=== PATIENT | female | born 1950 | race Caucasian/White ===

== ENCOUNTER → 2019-12-21 09:32 | Outpatient (BNVA) | payer OTHER, SELFPAY | PROVIDERS: Visit Provider Nurse Practitioner Family | DX: N39.0 Urinary tract infection, site not specified (principal); R10.9 Unspecified abdominal pain; M62.838 Other muscle spasm | CPT/HCPCS: 81000 ==

== ENCOUNTER 2019-12-28 16:30 | Emergency (ER) | payer MEDICARE, OTHER, SELFPAY ==
[2019-12-28 16:31] VITALS: BP 149/93; PULSE 114; RESP 28; O2SAT 87; BMI 42.8
--- NOTE | 2019-12-28 16:31 | XR_ITS ---
WS: [id number] PORTABLE CHEST HISTORY: sob COMPARISON: 2017 Examination is limited by lordotic positioning. External artifacts present over the mid thorax. No pn eumonia or pulmonary congestion. No pleural effusion or pneumothorax. Cardiac size: Mildly enlarged cardiac silhouette. Mediastinum/Aorta: Ectatic thoracic aorta. No osseous abnormality seen. XR/XR chest 1V portable [id number] IMPRESSION: 1. Mild cardiomegaly and ectatic thoracic aorta. 2. No pneumonia.
--- NOTE | 2019-12-28 16:31 | CTR_ITS ---
PROCEDURE INFORMATION: Exam: CT Abdomen And Pelvis With Contrast Exam date and time: 12/28/2019 4:33 PM Age: 69 years old Clinical indication: Chest pain; Type not specified; Prior surgery; Surgery date: 6+ months; Surgery type: Breast, gb, appy, hyst; Additional info: Abd pain TECHNIQUE: Imaging protocol: Computed tomography of the abdomen and pelvis with intravenous contrast. 3D rendering: MIP and/or 3D reconstructed images were created by the technologist. Radiation optimization: All CT scans at this facility use at least one of these dose optimization techniques: automated exposure control; mA and/or kV adjustment per patient size (includes targeted exams where dose is matched to clinical indication); or iterative reconstruction. COMPARISON: CTA Chest w Abd/Pel w* 07/01/2018 3:34 PM FINDINGS: Hollow viscus: Small hiatal hernia. Nonobstructive bowel pattern. Diverticulosis coli, primarily of the sigmoid colon, without evidence for diverticulitis. No visible adynamic or reactive ileus. Liver: Liver unremarkable. Gallbladder and bile ducts: Gallbladder not visualized presumed surgically absent. No visible intra or extrahepatic biliary ectasia. Pancreas: Pancreas unremarkable. Spleen: Spleen unremarkable. Adrenals: Adrenal glands unremarkable. Kidneys and ureters: Kidneys unremarkable. No visible hydronephrosis or perinephric fluid. Appendix: Appendix not visualized and presumed surgically absent. Intraperitoneal space: No visible intraperitoneal ascites. No evidence for panniculitis/mesenteritis or mesenteric lymphadenitis. Vasculature: The abdominal aorta demonstrates minimal infrarenal fusiform aneurysmal dilatation stable since last examination. Moderate arterial sclerotic disease. Lymph nodes: No visible lymphadenopathy. Bladder: Bladder unremarkable. Reproductive: Status post hysterectomy. Bones/joints: Antecedent thoracolumbar compression wedge deformities. Previous vertebroplasty of L4. Osteoporosis. Soft tissues: Unremarkable. Other findings: Please review CT a chest examination report same admission. CT/CT angio chest w abd pel w con IMPRESSION: No visible evidence of acute or active abdominal or pelvic pathologic process. Radiation Dose CTDIVOL = (mGy): DLP = 2100.82 (mGy-cm)
--- NOTE | 2019-12-28 16:32 | ECG_ITS ---
Measurements Intervals [place] Rate: 108 P: 53 MI: 165 QRS: 25 QRSD: 90 T: 33 QT: 324 QTc: 435 SINUS TACHYCARDIA Compared to ECG 07/01/2018 16:14:59 Sinus rhythm no longer present Electronically Signed On 12-28-2019 18:13:08 CDT by Nery Jansen M.D. [email or web address]
--- NOTE | 2019-12-28 16:38 | W.ED.ABDPA2 ---
HPI - Abdominal Pain General: Chief Complaint: Abdominal Pain Stated Complaint: chest pain, SOB, edema Time Seen by Provider: 12/28/19 16:31 Source: patient and EMS Mode of arrival: EMS Limitations: no limitations History of Present Illness: HPI narrative: 69-year-old female history of CHF and COPD states she has been having abdominal pain over the last 5 to 6 days. She states it is increased and she has had increasing distention of her abdomen. She states she has had shortness of breath as well. Patient denies any worsening or improving factors. She denies any chest pain. MD elicited complaint: abdominal pain Pertinent past history: none Onset (ago): day(s) Location: Diffuse Severity: moderate Quality: cramping Radiation: none Exacerbating factors: nothing Relieving factors: nothing Associated Symptoms: Denies chills, diarrhea, dysuria, fever(s), nausea and vomiting Review of Systems Const: Denies: fever, chills, body aches or change in appetite Eyes: Denies: blurry vision or eye discomfort ENMT: Denies: throat pain or dental pain Card: Denies: chest pain Resp: Reports: shortness of breath GI: Reports: abdominal pain; Denies: nausea, vomiting or diarrhea : Denies: painful urination Musc: Denies: neck pain or back pain Skin/Breast: Denies: rash Neuro: Denies: headache Psych: Denies: depression Awais/Lymph: Denies: easy bruising All/Imm: Denies: hives PFSH ED PFSH: Medical History 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 Poly Barajas in [place], [place] [phone] Diabetes mellitus, type II Essential hypertension Fibromyalgia H/O adenomatous polyp of colon H/O malignant neoplasm of breast Dr. Inocencia Reddy in [facility] is Oncologist. [facility] [phone] Lumbar disc disease Lupus Mixed hyperlipidemia Post-laminectomy syndrome Thoracic aortic aneurysm (TAA) Social History Smoking and tobacco status: former smoker Second hand smoke exposure: No Smoking risk assessment/counseling performed?: No Physical Exam Const: COMMON NORMALS: no apparent distress, oriented x3 and healthy appearing HENMT: COMMON NORMALS: normocephalic and head/scalp atraumatic HEAD & SCALP: normocephalic and atraumatic Eye: COMMON NORMALS: PERRL and EOMs intact bilaterally PUPIL: Yes PERRL Neck/C-Spine: COMMON NORMALS: full ROM and supple Chest: COMMONS NORMALS: inspection of chest normal and palpation of chest normal Resp: COMMON NORMALS: normal respiratory effort, no retractions, no use of accessory muscles and clear to auscultation bilaterally AUSCULTATION: clear to auscultation bilaterally Cardio: COMMON NORMALS: regular rate, regular rhythm and no murmurs RATE: regular rate RHYTHM: regular rhythm GI: COMMON NORMALS: no masses INSPECTION: Yes abdominal distension and Yes scar AUSCULTATION: Yes hypoactive bowel sounds PALPATION: Yes firm and Yes tender Extremity: COMMON NORMALS: normal to inspection and full ROM Neuro: COMMON NORMALS: oriented x3, moves all extremities and no focal motor deficits Psych: COMMON NORMALS: mental status grossly normal, thought process normal and cooperative THOUGHT PROCESS: normal thought process Skin: COMMON NORMALS: no rashes or lesions noted and no wounds GENERAL SKIN EXAM: no rashes or lesions noted Course Vital Signs: Vital signs: Vital Signs Pulse Rate 107 H 12/28/19 19:23 Respiratory Rate 20 H 12/28/19 19:23 Blood Pressure 177/110 12/28/19 19:23 Pulse Oximetry 99 12/28/19 19:23 MDM - Abdominal Pain MDM Narrative: Medical decision making narrative: Patient presents here with abdominal pain. Patient's lab work and CT abdomen here are all normal. She has no signs of bowel obstruction or acute surgical abdomen. She did have some dyspnea along with edema and was given 80 mg of Lasix in route. Patient has been urinating here. She is not requiring any oxygen here. Her BNP and CT of her chest are normal. She has no signs of acute coronary event. I feel patient is stable for discharge will prescribe her pain meds. She is to follow-up with her primary care doctor in 3 to 5 days return to the ER if worsening. Lab Data: Labs: Lab Results 12/28/19 12/28/19 12/28/19 Range/Units 15:31 15:31 15:31 WBC 6.7 (4.0-10.0) 10^3/ uL RBC 5.26 (4.1-5.3) 10^6/u L Hgb 12.9 (11.5-15.3) g/dL Hct 42.8 (37.0-47.0) % MCV 81.4 (81-99) fL MCH 24.5 L (28.0-34.0) pg MCHC 30.1 (30.0-36.0) g/dL RDW 16.0 H (12.1-15.1) % Plt Count 335 (130-400) 10^3/c mm MPV 10.8 H (7.4-10.4) fL Neut % (Auto) 56.7 % Lymph % (Auto) 32.8 % [place] % (Auto) 7.6 % Eos % (Auto) 1.8 % Baso % (Auto) 1.0 % Neut # (Auto) 3.8 (1.8-7.7) 10^3/u L Lymph # (Auto) 2.2 (0.8-4.8) 10^3/u L [place] # (Auto) 0.5 (0.2-0.9) 10^3/u L Eos # (Auto) 0.1 (0.0-0.8) 10^3/u L Baso # (Auto) 0.1 (0.0-0.1) 10^3/u L Nucleated RBC % (a uto) 0 % Nucleated RBCs # 0.0 /100WBC PT 13.20 (10.5-13.3) SECO NDS INR 0.97 (0.8-1.2) Sodium 139 (136-145) mmol/L Potassium 4.5 (3.5-5.1) mmol/L Chloride 100 (98-107) mmol/L Carbon Dioxide 24 (22-29) mmol/L Anion Gap 19.5 H (5-19) BUN 10 (8-23) mg/dL Creatinine 0.7 (0.5-0.9) mg/dL GFR Calculation 82.7 L (90-130) mL/min Glucose 114 (65-115) mg/dL Calculated Osmolal ity 285 (285-295) mOsm/k g Calcium 9.6 (8.5-10.5) mg/dL Total Bilirubin 0.2 (0.15-1.2) mg/dL AST 24 (0-32) U/L ALT 15 (0-33) U/L Alkaline Phosphata se 133 H (35-105) IU/L NT-Pro-B Natriuret Pep 242 H (0-125) pg/mL Total Protein 7.2 (6.6-8.7) g/dL Albumin 4.4 (3.5-5.2) g/dL Globulin 2.8 (1.3-4.6) g/dL Lipase 26 (13-60) U/L Urine Color (Yellow) Urine Appearance (CLEAR) Urine pH (5-7) Ur Specific Gravit y (1.005-1.030) Urine Protein (Negative) Urine Glucose (UA) (Normal) Urine Ketones (Negative) Urine Blood (Negative) Urine Nitrate (Negative) Urine Bilirubin (NEGATIVE) Prot Sulfosalicyli c Acd Urine Urobilinogen (Negative) mg/dL Ur Leukocyte Amy ase (Negative) 12/28/19 Range/Units 16:43 WBC (4.0-10.0) 10^3/ uL RBC (4.1-5.3) 10^6/u L Hgb (11.5-15.3) g/dL Hct (37.0-47.0) % MCV (81-99) fL MCH (28.0-34.0) pg MCHC (30.0-36.0) g/dL RDW (12.1-15.1) % Plt Count (130-400) 10^3/c mm MPV (7.4-10.4) fL Neut % (Auto) % Lymph % (Auto) % [place] % (Auto) % Eos % (Auto) % Baso % (Auto) % Neut # (Auto) (1.8-7.7) 10^3/u L Lymph # (Auto) (0.8-4.8) 10^3/u L [place] # (Auto) (0.2-0.9) 10^3/u L Eos # (Auto) (0.0-0.8) 10^3/u L Baso # (Auto) (0.0-0.1) 10^3/u L Nucleated RBC % (a uto) % Nucleated RBCs # /100WBC PT (10.5-13.3) SECO NDS INR (0.8-1.2) Sodium (136-145) mmol/L Potassium (3.5-5.1) mmol/L Chloride (98-107) mmol/L Carbon Dioxide (22-29) mmol/L Anion Gap (5-19) BUN (8-23) mg/dL Creatinine (0.5-0.9) mg/dL GFR Calculation (90-130) mL/min Glucose (65-115) mg/dL Calculated Osmolal ity (285-295) mOsm/k g Calcium (8.5-10.5) mg/dL Total Bilirubin (0.15-1.2) mg/dL AST (0-32) U/L ALT (0-33) U/L Alkaline Phosphata se (35-105) IU/L NT-Pro-B Natriuret Pep (0-125) pg/mL Total Protein (6.6-8.7) g/dL Albumin (3.5-5.2) g/dL Globulin (1.3-4.6) g/dL Lipase (13-60) U/L Urine Color Straw (Yellow) Urine Appearance Clear (CLEAR) Urine pH 8 H (5-7) Ur Specific Gravit y 1.005 (1.005-1.030) Urine Protein Neg (Negative) Urine Glucose (UA) Norm (Normal) Urine Ketones Negative (Negative) Urine Blood Neg (Negative) Urine Nitrate Negative (Negative) Urine Bilirubin Neg (NEGATIVE) Prot Sulfosalicyli c Acd Negative Urine Urobilinogen Norm (Negative) mg/dL Ur Leukocyte Amy ase Negative (Negative) Imaging Data ^: CT Abd/Pel: Radiologist's impression: [address] [place] [address] CT Scan Report Signed with Addenda Patient: Courtney Barrios Unit #: [id number] : [id number] Age/Sex: 69 / F ADM Date: 12/28/19 Loc: ER Room/Bed: Attending Dr: Ordering Provider/Ordering MD: Mikel Gonzalez MD Date of Service: 12/28/19 Procedure(s): CT angio chest w abd pel w con Accession Number(s): [id number] Report Number: [id number]/CT angio chest w abd pel w con Additional sagittal and coronal images of the abdomen and pelvis sent after report finalized. Those images were reviewed. No additional findings. No significant overall change since 07/01/2018. Radiation Dose CTDIVOL = (mGy): DLP = 2100.82 (mGy-cm) Addendum Dictated By: Akin Jordan Addendum Signed By: Akin Jordan Signed Date/Time: 12/28/19 182 6 Addendum Cosigned By: PROCEDURE INFORMATION: Exam: CT Abdomen And Pelvis With Contrast Exam date and time: 12/28/2019 4:33 PM Age: 69 years old Clinical indication: Chest pain; Type not specified; Prior surgery; Surgery date: 6+ months; Surgery type: Breast, gb, appy, hyst; Additional info: Abd pain TECHNIQUE: Imaging protocol: Computed tomography of the abdomen and pelvis with intravenous contrast. 3D rendering: MIP and/or 3D reconstructed images were created by the technologist. Radiation optimization: All CT scans at this facility use at least one of these dose optimization techniques: automated exposure control; mA and/or kV adjustment per patient size (includes targeted exams where dose is matched to clinical indication); or iterative reconstruction. COMPARISON: CTA Chest w Abd/Pel w* 07/01/2018 3:34 PM FINDINGS: Hollow viscus: Small hiatal hernia. Nonobstructive bowel pattern. Diverticulosis coli, primarily of the sigmoid colon, without evidence for diverticulitis. No visible adynamic or reactive ileus. Liver: Liver unremarkable. Gallbladder and bile ducts: Gallbladder not visualized presumed surgically absent. No visible intra or extrahepatic biliary ectasia. Pancreas: Pancreas unremarkable. Spleen: Spleen unremarkable. Adrenals: Adrenal glands unremarkable. Kidneys and ureters: Kidneys unremarkable. No visible hydronephrosis or perinephric fluid. Appendix: Appendix not visualized and presumed surgically absent. Intraperitoneal space: No visible intraperitoneal ascites. No evidence for panniculitis/mesenteritis or mesenteric lymphadenitis. Vasculature: The abdominal aorta demonstrates minimal infrarenal fusiform aneurysmal dilatation stable since last examination. Moderate arterial sclerotic disease. Lymph nodes: No visible lymphadenopathy. Bladder: Bladder unremarkable. Reproductive: Status post hysterectomy. Bones/joints: Antecedent thoracolumbar compression wedge deformities. Previous vertebroplasty of L4. Osteoporosis. Soft tissues: Unremarkable. Other findings: Please review CT a chest examination report same admission. CT/CT angio chest w abd pel w con IMPRESSION: No visible evidence of acute or active abdominal or pelvic pathologic process. EKG Data ^: EKG 1: Attestation: I personally reviewed and interpreted this EKG as follows: EKG interpretation date: 12/28/19 EKG interpretation time: 16:40 Interpretation: sinus tach hr [address] or t wave abnormalities Discharge Plan Discharge Patient Disposition: Home, Self-Care Clinical Impression: Dyspnea Abdominal pain Qualifiers: Abdominal location: generalized Qualified Code(s): R10.84 - Generalized abdominal pain Condition: Stable Prescriptions: [place] 5-325 mg tablet 1 tab PO Q6H PRN (Reason: pain) Qty: 14 RF: 0 No Action bumetanide 1 mg tablet 1 mg PO DAILY RF: 0 lisinopril 10 mg tablet 10 mg PO DAILY RF: 0 levothyroxine 50 mcg tablet 50 mcg PO DAILY RF: 0 pravastatin 10 mg tablet 10 mg PO DAILY RF: 0 sertraline 100 mg tablet 100 mg PO DAILY RF: 0 cyclobenzaprine 10 mg tablet 10 ea PO DAILY RF: 0 esomeprazole magnesium 40 mg capsule,delayed release(DR/EC) 40 mg PO DAILY RF: 0 Breo Ellipta 100-25 mcg/dose blister with device 1 inh INHALATION DAILY RF: 0 quetiapine 50 mg tablet 50 mg PO BEDTIME RF: 0 albuterol sulfate 90 mcg/actuation HFA aerosol inhaler 2 puff INHALATION Q4H PRN (Reason: Shortness Of Breath) RF: 0 letrozole 2.5 mg tablet 2.5 mg PO DAILY RF: 0 metformin 1,000 mg tablet 1,000 mg PO BID RF: 0 lidocaine 5 % adhesive patch,medicated 1 patch TOPICAL DAILY PRN (Reason: back pain ) 30 Days Qty: 30 RF: 0 prednisone 10 mg tablet See Rx Instructions .ROUTE .COMPLEX RF: 0 Tylenol Extra Strength 500 mg Tablet 1,000 mg PO PRN RF: 0 furosemide 20 mg tablet 20 mg PO DAILY RF: 0 naproxen sodium 220 mg Capsule 440 mg PO Q4H PRN (Reason: unknown) RF: 0 Discharge Orders: Discharge Order (Routine); Ordered 12/28/19 Ordered By: Mikel Gonzalez Discharge Diet: Advance as tolerated Discharge Activity: Resume usual activity Patient Instructions: Abdominal Pain (ED) Discharge Date/Time: 12/28/19 19:23 Coding Level of Care Code ED Client Services Vice President for [place] Fwd Exam Comprehensive
[2019-12-28 16:44] LABS: Basophils # 0.1 10^3/uL (0.0-0.1); Eosinophils # 0.1 10^3/uL (0.0-0.8); Eosinophils % 1.8 %; Hematocrit 42.8 % (37.0-47.0); Hemoglobin 12.9 g/dL (11.5-15.3); Lymphocytes # 2.2 10^3/uL (0.8-4.8); Lymphocytes % 32.8 %; Mean Corpuscular HGB Conc 30.1 g/dL (30.0-36.0); Mean Corpuscular Hemoglobin 24.5 pg (28.0-34.0); Mean Corpuscular Volume 81.4 fL (81-99); Mean Platelet Volume 10.8 fL (7.4-10.4); Monocytes # 0.5 10^3/uL (0.2-0.9); Monocytes % 7.6 %; Neutrophils # 3.8 10^3/uL (1.8-7.7); Neutrophils % 56.7 %; Nucleated Red Blood Cells % 0 %; Platelet Count 335 10^3/cmm (130-400); Red Blood Count 5.26 10^6/uL (4.1-5.3); White Blood Count 6.7 10^3/uL (4.0-10.0)
[2019-12-28 16:45] VITALS: RESP 22
[2019-12-28] MEDS: morphine 4 mg/mL SDV 1 mL IVP ×2 (16:45→18:50)
[2019-12-28] MEDS: ondansetron 2 mg/ML SDV 2 mL 4 MG IVP (16:45)
[2019-12-28 16:53] LABS: INR 0.97 (0.8-1.2)
[2019-12-28 17:02] LABS: Add Urine Microscopic? NO
[2019-12-28 17:14] LABS: Alanine Aminotransferase 15 U/L (0-33); Albumin Level 4.4 g/dL (3.5-5.2); Alkaline Phosphatase 133 IU/L (35-105); Anion Gap 19.5 (5-19); Aspartate Amino Transferase 24 U/L (0-32); Blood Urea Nitrogen 10 mg/dL (8-23); Calcium 9.6 mg/dL (8.5-10.5); Carbon Dioxide 24 mmol/L (22-29); Chloride 100 mmol/L (98-107); Globulin 2.8 g/dL (1.3-4.6); Glomerular Filtration Rate 82.7 mL/min (90-130); Glucose 114 mg/dL (65-115); Lipase 26 U/L (13-60); NT Pro B Type Natriuretic Pept 242 pg/mL (0-125); Osmolality Calculated 285 mOsm/kg (285-295); Potassium 4.5 mmol/L (3.5-5.1); Sodium 139 mmol/L (136-145); Total Bilirubin 0.2 mg/dL (0.15-1.2); Total Protein 7.2 g/dL (6.6-8.7)
[2019-12-28 17:44] LABS: Bilirubin Urine Neg (NEGATIVE); Blood Urine Neg (Negative); Glucose Urine UA Norm (Normal); Ketones Urine Negative (Negative); Leukocyte Esterase Urine Negative (Negative); Nitrate Urine Negative (Negative); Protein Urine Neg (Negative); Specific Gravity, Urine 1.005 (1.005-1.030); Sulfosalicylic Acid Urine Negative; Urine Appearance Clear (CLEAR); Urine Color Straw (Yellow); Urobilinogen Urine Norm (Negative); pH Urine 8 (5-7)
[2019-12-28] MEDS: iohexol 350 mg/mL 100 mL Btl IV (17:47)
[2019-12-28 18:50] VITALS: RESP 16
[2019-12-28 19:23] VITALS: BP 177/110; PULSE 107; RESP 20; O2SAT 99
== END 2019-12-28 19:23 | disposition home or self-care (01) ==
PROVIDERS: Emergency Provider Emergency Medicine
DX: R06.00 Dyspnea, unspecified (principal); R10.9 Unspecified abdominal pain; I11.0 Hypertensive heart disease with heart failure; I50.9 Heart failure, unspecified; J44.9 Chronic obstructive pulmonary disease, unspecified; E11.9 Type 2 diabetes mellitus without complications; E78.2 Mixed hyperlipidemia; Z87.891 Personal history of nicotine dependence; Z79.84 Long term (current) use of oral hypoglycemic drugs
CPT/HCPCS: 12345; 71045; 71275; 74177; 80053; 81003; 83690; 83880; 85025; 85610; 93005; 96374; 96375; 96376; 99281; 99284; J2270; J2405; Q9967

== ENCOUNTER → 2020-01-21 12:00 | Outpatient (BNVA) | payer MEDICARE, OTHER, SELFPAY | PROVIDERS: Visit Provider Nurse Practitioner Family | DX: N39.0 Urinary tract infection, site not specified (principal); R60.9 Edema, unspecified | CPT/HCPCS: 80048; 80053; 81001; 83880; 87077; 87086; 87186 ==

== ENCOUNTER → 2020-02-09 09:49 | Outpatient (BNVA) | payer MEDICARE, OTHER, SELFPAY | PROVIDERS: Visit Provider Nurse Practitioner Family | DX: R39.9 Unspecified symptoms and signs involving the genitourinary system (principal) | CPT/HCPCS: 80053; 81001; 87077; 87086; 87186 ==

== ENCOUNTER → 2020-05-03 12:05 | Outpatient (BNVA) | payer MEDICARE, OTHER, SELFPAY | PROVIDERS: Visit Provider Nurse Practitioner Family | DX: N39.0 Urinary tract infection, site not specified (principal); A49.9 Bacterial infection, unspecified; M19.90 Unspecified osteoarthritis, unspecified site | CPT/HCPCS: 80053; 81003; 87077; 87086; 87186 ==

== ENCOUNTER → 2020-06-21 13:19 | Outpatient (BNVA) | payer MEDICARE, OTHER, SELFPAY | PROVIDERS: Visit Provider Internal Medicine | DX: Z20.828 Contact with and (suspected) exposure to other viral communicable diseases (principal) | CPT/HCPCS: 87635 ==

== ENCOUNTER 2020-07-10 16:35 | Emergency (ER) | payer MEDICARE, OTHER, SELFPAY ==
[2020-07-10] VITALS (7 sets, daily range): BP systolic 136–182; BP diastolic 102–129; PULSE 90–105; RESP 15–27; TEMP 36.8; O2SAT 92–97; BMI 34.3
--- NOTE | 2020-07-10 17:59 | ED_ITS ---
HPI - Female Genitourinary General: Chief complaint: Urogenital-Female Stated complaint: COVID SYMPTOMS Time Seen by Provider: 07/10/20 17:50 History of Present Illness: HPI Narrative: Patient comes in for complaints of feeling unwell since having a colonoscopy on 28 June. Patient states that she felt bad on the had a colonoscopy on the . Patient since then has had persistent feelings of malaise and nausea. Patient reports poor appetite. Patient reports some difficulty with urination. Patient reports low-grade fever of 99.3. Patient states low bilateral back pain. Patient denies any chest discomfort or shortness of breath or cough. Associated symptoms: Reports nausea Review of Systems General: Reports: 10 or more systems reviewed and unremarkable except in HPI and below GI: Reports: nausea : Reports: difficulty voiding Musc: Reports: back pain PFS ED PFSH: Medical History (Updated 07/10/20 @ 21:57 by VALDEZ Almazan) Aneurysm of infrarenal abdominal aorta Arthritis Bacterial UTI COPD (chronic obstructive pulmonary disease) with chronic bronchitis Patient sees Dr. Poly Barajas in [place], [place] [phone] Diabetes mellitus, type II Essential hypertension Fibromyalgia H/O adenomatous polyp of colon H/O malignant neoplasm of breast Dr. Inocencia Reddy in [facility] is Oncologist. [facility] [phone] Lumbar disc disease Lupus Mixed hyperlipidemia Post-laminectomy syndrome Thoracic aortic aneurysm (TAA) Social History Smoking and tobacco status: former smoker Second hand smoke exposure: No Smoking risk assessment/counseling performed?: No Physical Exam Const: COMMON NORMALS: no acute distress and patient oriented x3 GENERAL APPEARANCE: cooperative HENMT: COMMON NORMALS: normocephalic and Normal external nose present HEAD & SCALP: normal to inspection and normocephalic NOSE: Normal external nose present MOUTH: Normal oral and palatal mucosa present THROAT: posterior oropharynx normal Neck/C-Spine: COMMON NORMALS: full ROM Lymph: LYMPHATIC: no lymphadenopathy noted Chest: COMMONS NORMALS: normal inspection of the chest Resp: COMMON NORMALS: normal respiratory effort EFFORT & INSPECTION: Yes able to speak in complete sentences Cardio: COMMON NORMALS: regular rate and regular rhythm RATE: regular rate RHYTHM: regular rhythm GI: COMMON NORMALS: non-tender AUSCULTATION: Yes Hyperactive bowel sounds present PALPATION: Yes Tenderness to palpation present (GI) (general) : COMMON NORMALS: Yes no CVA tenderness BLADDER/KIDNEY EXAM: Yes no CVA tenderness Back/Pelvis: COMMON NORMALS: no CVA tenderness and thoracic and lumbar spine normal to inspection Extremity: COMMON NORMALS: normal to inspection Neuro: COMMON NORMALS: patient oriented x3 and moves all extremities Psych: COMMON NORMALS: mental status grossly normal and cooperative Skin: COMMON NORMALS: no rashes or lesions noted GENERAL SKIN EXAM: no rashes or lesions noted Course ED course: 1904, patient continues to have pain, nursing unable to acces IV, med order changed to IM Morphine for pain. awaiting CBC and UA. wjw 2027, patient pain improved. Patient is concerned that there is a roro in her bowel from her colonoscopy. She is scheduled for CT tomorrow but due to her consistent pain we will evaluate the abd pain further with CT tonite. ww Vital Signs: Vital signs: Vital Signs Temperature 98.3 F 07/10/20 18:13 Pulse Rate 97 07/10/20 21:38 Respiratory Rate 15 07/10/20 21:38 Blood Pressure 157/111 07/10/20 21:38 Pulse Oximetry 97 07/10/20 21:38 MDM - Female MDM Narrative: Medical decision making narrative: Patient comes in with low back pain. Patient was worried that she may have had a bowel rupture due to a recent colonoscopy. Patient appears well. Patient appears in moderate pain. On exam patient has muscle tenderness to the low back and some vertebral tenderness. Vital signs were stable. Differential diagnosis includes but not limited to urinary tract infection, bowel obstruction, mechanical back pain. Laboratory values were unremarkable. Urinalysis was clear. CT scan of the abdomen and pelvis noted no abdominal abnormality except a 4 cm abdominal aortic aneurysm, and some spondylosis of the T12 vertebra. Reviewed exam with patient and family with recommendations for treatment for back pain. Recommended follow-up for further evaluation and treatment of the abnormality at the T12 area. Also discussed the aortic aneurysm they were aware of it but the last time they had excised it was 3 cm. They will follow-up with primary care and specialist regarding the aortic aneurysm. Patient and family both report understanding of care plan and need for follow-up. Lab Data: Labs: Lab Results 07/10/20 07/10/20 07/10/20 Range/Units 18:30 18:30 18:30 WBC Cancelled Corrected WBC Cancelled RBC Cancelled Hgb Cancelled Hct Cancelled MCV Cancelled MCH Cancelled MCHC Cancelled RDW Cancelled Plt Count Cancelled MPV Cancelled Gran % Cancelled Neut % (Auto) Cancelled Lymph % (Auto) Cancelled [place] % (Auto) Cancelled Eos % (Auto) Cancelled Baso % (Auto) Cancelled Neut # (Auto) Cancelled Lymph # (Auto) Cancelled [place] # (Auto) Cancelled Eos # (Auto) Cancelled Baso # (Auto) Cancelled Absolute Gran (aut o) Cancelled Nucleated RBC % (a uto) Cancelled Nucleated RBCs # Cancelled Sodium 139 (136-145) mmol/L Potassium 4.7 (3.5-5.1) mmol/L Chloride 95 L (98-107) mmol/L Carbon Dioxide 23 (22-29) mmol/L Anion Gap 25.7 H (5-19) BUN 18 (8-23) mg/dL Creatinine 0.5 (0.5-0.9) mg/dL GFR Calculation Not Reportable Glucose 107 (65-115) mg/dL Calculated Osmolal ity 290 (285-295) mOsm/k g Lactate 1.7 (0.5-2.2) mmol/L Calcium 9.9 (8.5-10.5) mg/dL Total Bilirubin 0.4 (0.15-1.2) mg/dL AST 28 (0-32) U/L ALT 15 (0-33) U/L Alkaline Phosphata se 144 H (35-105) IU/L Total Protein 7.3 (6.6-8.7) g/dL Albumin 4.2 (3.5-5.2) g/dL Globulin 3.1 (1.3-4.6) g/dL Urine Color (Yellow) Urine Appearance (CLEAR) Urine pH (5-7) Ur Specific Gravit y (1.005-1.030) Urine Protein (Negative) Urine Glucose (UA) (Normal) Urine Ketones (Negative) Urine Blood (Negative) Urine Nitrate (Negative) Urine Bilirubin (Negative) Urine Urobilinogen (Negative) mg/dL Ur Leukocyte Amy ase (Negative) 07/10/20 07/10/20 Range/Units 19:35 19:58 WBC 8.9 Corrected WBC RBC 5.26 Hgb 13.3 Hct 43.7 MCV 83.1 MCH 25.3 L MCHC 30.4 RDW 15.5 H Plt Count 278 MPV 10.8 H Gran % Neut % (Auto) 73.9 Lymph % (Auto) 18.9 [place] % (Auto) 6.4 Eos % (Auto) 0.2 Baso % (Auto) 0.4 Neut # (Auto) 6.58 Lymph # (Auto) 1.7 [place] # (Auto) 0.6 Eos # (Auto) 0.0 Baso # (Auto) 0.0 Absolute Gran (aut o) Nucleated RBC % (a uto) 0 Nucleated RBCs # 0.0 Sodium (136-145) mmol/L Potassium (3.5-5.1) mmol/L Chloride (98-107) mmol/L Carbon Dioxide (22-29) mmol/L Anion Gap (5-19) BUN (8-23) mg/dL Creatinine (0.5-0.9) mg/dL GFR Calculation Glucose (65-115) mg/dL Calculated Osmolal ity (285-295) mOsm/k g Lactate (0.5-2.2) mmol/L Calcium (8.5-10.5) mg/dL Total Bilirubin (0.15-1.2) mg/dL AST (0-32) U/L ALT (0-33) U/L Alkaline Phosphata se (35-105) IU/L Total Protein (6.6-8.7) g/dL Albumin (3.5-5.2) g/dL Globulin (1.3-4.6) g/dL Urine Color Yellow (Yellow) Urine Appearance Clear (CLEAR) Urine pH 5 (5-7) Ur Specific Gravit y 1.015 (1.005-1.030) Urine Protein Neg (Negative) Urine Glucose (UA) Norm (Normal) Urine Ketones 3+ H (Negative) Urine Blood Neg (Negative) Urine Nitrate Negative (Negative) Urine Bilirubin 1+ H (Negative) Urine Urobilinogen Norm (Negative) mg/dL Ur Leukocyte Amy ase Negative (Negative) Discharge Plan Discharge Patient Disposition: Home Clinical Impression: Thoracic spondylosis Aortic aneurysm Qualifiers: Aortic location: abdominal aorta Presence of rupture: without rupture Qualified Code(s): I71.4 - Abdominal aortic aneurysm, without rupture Condition: Stable Prescriptions: New hydrocodone-acetaminophen 5-325 mg tablet 1 tab PO Q6H PRN (Reason: pain (scale score 7-10)) Qty: 14 RF: 0 No Action nitrofurantoin monohyd/m-cryst [Macrobid] 100 mg capsule 100 mg PO Q12H 7 Days Qty: 14 RF: 0 diclofenac sodium 1 % gel 2 gm TOPICAL QID 30 Days Qty: 100 RF: 2 ciprofloxacin HCl [Cipro] 250 mg tablet 250 mg PO BID 5 Days Qty: 10 RF: 0 phenazopyridine [Pyridium] 200 mg tablet 200 mg PO TID Qty: 6 RF: 0 bumetanide 1 mg tablet 1 mg PO DAILY RF: 0 lisinopril 10 mg tablet 10 mg PO DAILY RF: 0 levothyroxine 50 mcg tablet 50 mcg PO DAILY RF: 0 pravastatin 10 mg tablet 10 mg PO DAILY RF: 0 sertraline 100 mg tablet 100 mg PO DAILY RF: 0 cyclobenzaprine 10 mg tablet 10 ea PO DAILY RF: 0 esomeprazole magnesium 40 mg capsule,delayed release(DR/EC) 40 mg PO DAILY RF: 0 Breo Ellipta 100-25 mcg/dose blister with device 1 inh INHALATION DAILY RF: 0 quetiapine 50 mg tablet 50 mg PO BEDTIME RF: 0 albuterol sulfate 90 mcg/actuation HFA aerosol inhaler 2 puff INHALATION Q4H PRN (Reason: Shortness Of Breath) RF: 0 letrozole 2.5 mg tablet 2.5 mg PO DAILY RF: 0 metformin 1,000 mg tablet 1,000 mg PO BID RF: 0 Tylenol Extra Strength 500 mg Tablet 1,000 mg PO PRN RF: 0 furosemide 20 mg tablet 20 mg PO DAILY RF: 0 naproxen sodium 220 mg Capsule 440 mg PO Q4H PRN (Reason: unknown) RF: 0 Greig 5-325 mg tablet 1 tab PO Q6H PRN (Reason: pain) Qty: 14 RF: 0 Discharge Orders: Discharge Order (Routine); Ordered 07/10/20 Ordered By: Angel Rascon Discharge Diet: Usual diet Discharge Activity: Increase activity as tolerated Patient Instructions: Back Pain (ED) Activity Restrictions/Additional Instructions: Activity as tolerated. Gentle stretching and range of motion. Maintain walking and normal activity as much as possible. Take medications as directed. Follow-up with primary care for worsening or new concerns. Return to the emergency department for new concerns. Coding Level of Care Code ED Outside Sales Account Representative for Genevieve Carter Exam Comprehensive
[2020-07-10 18:57] LABS: Lactate (Lactic Acid level) 1.7 mmol/L (0.5-2.2)
[2020-07-10 18:58] LABS: Alanine Aminotransferase 15 U/L (0-33); Albumin Level 4.2 g/dL (3.5-5.2); Alkaline Phosphatase 144 IU/L (35-105); Blood Urea Nitrogen 18 mg/dL (8-23); Calcium 9.9 mg/dL (8.5-10.5); Carbon Dioxide 23 mmol/L (22-29); Chloride 95 mmol/L (98-107); Globulin 3.1 g/dL (1.3-4.6); Glucose 107 mg/dL (65-115); Osmolality Calculated 290 mOsm/kg (285-295); Sodium 139 mmol/L (136-145); Total Bilirubin 0.4 mg/dL (0.15-1.2); Total Protein 7.3 g/dL (6.6-8.7)
[2020-07-10 19:05] LABS: Anion Gap 25.7 (5-19); Aspartate Amino Transferase 28 U/L (0-32)
[2020-07-10 19:06] LABS: Potassium 4.7 mmol/L (3.5-5.1)
[2020-07-10 19:43] LABS: Basophils % 0.4 %; Eosinophils % 0.2 %; Hematocrit 43.7 % (37.0-47.0); Hemoglobin 13.3 g/dL (11.5-15.3); Lymphocytes # 1.7 10^3/uL (0.8-4.8); Lymphocytes % 18.9 %; Mean Corpuscular HGB Conc 30.4 g/dL (30.0-36.0); Mean Corpuscular Hemoglobin 25.3 pg (28.0-34.0); Mean Corpuscular Volume 83.1 fL (81-99); Mean Platelet Volume 10.8 fL (7.4-10.4); Monocytes # 0.6 10^3/uL (0.2-0.9); Monocytes % 6.4 %; Neutrophils # 6.58 10^3/uL (1.8-7.7); Neutrophils % 73.9 %; Nucleated Red Blood Cells % 0 %; Platelet Count 278 10^3/cmm (130-400); Red Blood Count 5.26 10^6/uL (4.1-5.3); Red Cell Distribution Width 15.5 % (12.1-15.1); White Blood Count 8.9 10^3/uL (4.0-10.0)
[2020-07-10] MEDS: morphine 4 mg/mL SDV 1 mL IM ×2 (19:51→22:01)
[2020-07-10] MEDS: ondansetron 2 mg/ML SDV 2 mL 4 MG IM (19:51)
[2020-07-10 20:19] LABS: Add Urine Microscopic? NO
[2020-07-10 20:22] LABS: Bilirubin Urine 1+ (Negative); Blood Urine Neg (Negative); Glucose Urine UA Norm (Normal); Ketones Urine 3+ (Negative); Leukocyte Esterase Urine Negative (Negative); Nitrate Urine Negative (Negative); Protein Urine Neg (Negative); Specific Gravity, Urine 1.015 (1.005-1.030); Urine Appearance Clear (CLEAR); Urine Color Yellow (Yellow); Urobilinogen Urine Norm (Negative); pH Urine 5 (5-7)
--- NOTE | 2020-07-10 20:23 | CTR_ITS ---
PROCEDURE INFORMATION: Exam: CT Abdomen And Pelvis Without Contrast Exam date and time: 07/10/2020 8:25 PM Age: 70 years old Clinical indication: Abdominal pain; Generalized; Prior surgery; Surgery date: 6+ months; Surgery type: Gb, appy, hyst; Patient HX: Had colonoscopy 06/28 C/O lower abd/pelvic pain radiating to back since; Additional info: Abd pain radiating to back TECHNIQUE: Imaging protocol: Computed tomography of the abdomen and pelvis without contrast. Radiation optimization: All CT scans at this facility use at least one of these dose optimization techniques: automated exposure control; mA and/or kV adjustment per patient size (includes targeted exams where dose is matched to clinical indication); or iterative reconstruction. COMPARISON: CT angio chest w abd pel w con 12/28/2019 5:29 PM RADIATION DOSE METRICS: Total DLP (mGy-cm): 1502.3 FINDINGS: Heart: There is trace pericardial effusion. Mediastinal space: A small hiatal hernia is present. Liver: Unremarkable.No mass. Gallbladder and bile ducts: There has been a cholecystectomy. Pancreas: Normal. No ductal dilation. Spleen: Normal. No splenomegaly. Adrenals: Normal. No mass. Kidneys and ureters: There is no evidence of hydronephrosis. There is no evidence of renal calcifications. Stomach and bowel: Extensive diverticulosis is present in the distal colon. There is no evidence of colitis/diverticulitis. There is no evidence of intestinal perforation or obstruction. Appendix: There has been an appendectomy. Intraperitoneal space: Unremarkable. No free air. No significant fluid collection. Vasculature: There is 4 cm aneurysmal dilatation of the distal abdominal aorta. Lymph nodes: Unremarkable.No enlarged lymph nodes. Urinary bladder: There is nonspecific bladder wall thickening. This may be related to incomplete distention. Reproductive: There has been a hysterectomy. Bones/joints: There is acute progressive height loss of T12 involving the anterior and middle columns with retropulsed bone measuring 2.5 mm. No critical stenosis. Diffuse osteopenia and severe degenerative changes are noted. There is a prior vertebroplasty of L4. Unchanged compression fracture deformities of T9 through T11 and L1 through L5 are noted. Soft tissues: Unremarkable. CT/CT abdomen pelvis wo con [id number] IMPRESSION: 1. There is acute progressive height loss of T12 involving the anterior and middle columns with retropulsed bone measuring 2.5 mm. No critical stenosis. Unchanged multiple chronic compression fractures are noted in the visualized thoracic and lumbar spine. 2. There is 4 cm aneurysmal dilatation of the distal abdominal aorta. Radiation Dose CTDIVOL = (mGy): DLP = 1502.3 (mGy-cm)
== END 2020-07-10 22:23 | disposition home or self-care (01) ==
PROVIDERS: Nurse Practitioner Family; Emergency Provider Nurse Practitioner Family
DX: I71.4 Abdominal aortic aneurysm, without rupture (principal); M47.814 Spondylosis without myelopathy or radiculopathy, thoracic region; Z79.84 Long term (current) use of oral hypoglycemic drugs; J44.9 Chronic obstructive pulmonary disease, unspecified; E11.9 Type 2 diabetes mellitus without complications; I10 Essential (primary) hypertension; E78.2 Mixed hyperlipidemia; Z87.891 Personal history of nicotine dependence; Z85.3 Personal history of malignant neoplasm of breast
CPT/HCPCS: 12345; 36415; 74176; 80053; 81003; 83605; 85025; 96372; 99283; J2270; J2405

== ENCOUNTER 2020-09-19 12:52 | Inpatient (IN) | payer MEDICARE, OTHER, SELFPAY ==
[2020-09-19] VITALS (16 sets, daily range): BP systolic 74–161; BP diastolic 48–109; PULSE 82–91; RESP 16–23; TEMP 36.6; O2SAT 93–100; BMI 34.3
--- NOTE | 2020-09-19 13:05 | W.ED.WEAKNES ---
Documented by User: RADHA Lopez 09/19/20 15:25 HPI - Weakness General: Chief complaint: Weakness Stated complaint: BILATERAL LEG WEAKNESS/ BACK PAIN Time Seen by Provider: 09/19/20 12:58 History of Present Illness: HPI Narrative: Patient is a 70-year-old female comes to the ED with weakness, back pain and AMS. Patient has a past medical history of hypertension, heart failure, COPD, diabetes. Patient had a back surgery performed back in July right before . She still having severe back pain and she has not had any post physical therapy done yet. Patient's daughter is also present and she has been helping take care of patient during this time. She says patient's mental status has declined since July. Patient's in the beginning of July daughter says patient has been declining ever since. She does not eat much or have any desire to eat. Daughter stressed to me that patient has not been drinking much fluids at all. Patient has not taken her diuretic med for almost 2 weeks. She has been able to get up from her bed and walk to the bathroom, but that is all the activity she has. Denies any shortness of breath or chest pain. Associated symptoms: Reports confusion; Denies chest pain, chills, dysuria, fever(s), headache(s), nausea or vomiting Review of Systems Narrative: generalized weakness Const: Reports: fatigue and daytime sleepiness; Denies: fever(s) or chills Eyes: Denies: change in vision or eye discomfort ENMT: Denies: throat pain, odynophagia, nasal discharge or nasal congestion Card: Denies: chest pain, palpitations, edema, swelling of feet/ankles, dyspnea on exertion or orthopnea Resp: Denies: dyspnea, productive cough or non-productive cough GI: Denies: abdominal pain, nausea, vomiting, diarrhea, constipation or hematochezia : Denies: flank pain, dysuria or hematuria Musc: Reports: back pain; Denies: neck pain or extremity swelling Skin/Breast: Denies: rash or new lesions Neuro: Reports: confusion; Denies: headache(s), numbness in extremities or weakness in extremities PFS ED PFSH: Medical History Aneurysm of infrarenal abdominal aorta Arthritis Bacterial UTI COPD (chronic obstructive pulmonary disease) with chronic bronchitis Patient sees Dr. Poly Barajas in [place], [place] [phone] Diabetes mellitus, type II Essential hypertension Fibromyalgia H/O adenomatous polyp of colon H/O malignant neoplasm of breast Dr. Inocencia Reddy in [facility] is Oncologist. [facility] [phone] Lumbar disc disease Lupus Mixed hyperlipidemia Post-laminectomy syndrome Thoracic aortic aneurysm (TAA) Social History Smoking and tobacco status: former smoker Second hand smoke exposure: No Smoking risk assessment/counseling performed?: No Physical Exam Narrative: EXAM NARRATIVE: Patient appeared very tired and sleepy. She would fall asleep during questions or in the middle of answers. Const: COMMON NORMALS: alert GENERAL APPEARANCE: cooperative, comfortable and lethargic ORIENTATION/CONSCIOUSNESS: Yes oriented to person and Yes lethargic HENMT: COMMON NORMALS: normocephalic HEAD & SCALP: normocephalic MOUTH: moist mucous membranes abnormal (mod to severe dehydration) Details: parched THROAT: posterior oropharynx normal and uvula midline Eye: COMMON NORMALS: Equal, round and reactive pupils present and EOMs intact bilaterally PUPIL: Yes Equal, round and reactive pupils present Neck/C-Spine: COMMON NORMALS: supple GENERAL: Yes normal visual inspection Resp: COMMON NORMALS: normal respiratory effort, No retractions, No use of accessory muscles and clear to auscultation bilaterally AUSCULTATION: clear to auscultation bilaterally Cardio: COMMON NORMALS: regular rate, regular rhythm, S1 normal heart sound present, S2 normal heart sound present, No gallops present (Cardio), No clicks present (Cardio), No murmurs present (Cardio) and Peripheral pulses 2+ throughout RATE: regular rate RHYTHM: regular rhythm HEART SOUNDS: S1 normal heart sound present and S2 normal heart sound present PERIPHERAL PULSES: Peripheral pulses 2+ throughout GI: COMMON NORMALS: Normal to inspection, nondistended, normoactive bowel sounds present, Soft to palpation, non-tender and no masses PALPATION: Yes Soft to palpation : COMMON NORMALS: Yes no CVA tenderness BLADDER/KIDNEY EXAM: Yes no CVA tenderness Back/Pelvis: COMMON NORMALS: no CVA tenderness Extremity: COMMON NORMALS: normal to inspection GENERAL: Yes edema (Bilateral 1+ pitting edema.) Neuro: COMMON NORMALS: CN's II-XII intact bilaterally and moves all extremities SENSORIUM/ORIENTATION: Yes alert, Yes oriented to person, Yes Orientation impaired (pt wrong about day, month and year. pt did know current president.) and Yes lethargic COORDINATION/BALANCE: [id number] test normal COORDINATION: [id number] test normal Skin: GENERAL SKIN EXAM: dry skin Course ED course: Patient is a 70-year-old female comes to the ED with altered mental status. I performed the initial history, physical exam and ordered labs and imaging. Patient had a potassium of 7.6 and a creatinine of 6.9. Anion gap of 34.6. Due to critical labs and acuity of patient I talked with Dr. Rader about patient and he will be taking over care and management. Vital Signs: Vital signs: Vital Signs Temperature 97.9 F 09/19/20 12:55 Pulse Rate 83 09/19/20 18:00 Respiratory Rate 18 09/19/20 18:00 Blood Pressure 74/48 09/19/20 18:00 Pulse Oximetry 96 09/19/20 18:00 MDM - Weakness Lab Data: Attestation: I reviewed the patient's lab results. Labs: Lab Results 09/19/20 09/19/20 09/19/20 Range/Units 14:02 14:06 14:06 WBC 11.3 H (4.0-10.0) 10^3/ uL RBC 4.51 (4.1-5.3) 10^6/u L Hgb 11.6 (11.5-15.3) g/dL Hct 38.3 (37.0-47.0) % MCV 84.9 (81-99) fL MCH 25.7 L (28.0-34.0) pg MCHC 30.3 (30.0-36.0) g/dL RDW 15.9 H (12.1-15.1) % Plt Count 340 (130-400) 10^3/c mm MPV 11.4 H (7.4-10.4) fL Neut % (Auto) 68.6 % Lymph % (Auto) 22.2 % [place] % (Auto) 8.1 % Eos % (Auto) 0.3 % Baso % (Auto) 0.4 % Neut # (Auto) 7.75 H (1.8-7.7) 10^3/u L Lymph # (Auto) 2.5 (0.8-4.8) 10^3/u L [place] # (Auto) 0.9 (0.2-0.9) 10^3/u L Eos # (Auto) 0.0 (0.0-0.8) 10^3/u L Baso # (Auto) 0.0 (0.0-0.1) 10^3/u L Nucleated RBC % (a uto) 0 % Nucleated RBCs # 0.0 /100WBC Specimen Type Sample Site ABG pH (7.35-7.45) ABG pCO2 (35-45) mmHg ABG pO2 (80.0-100.0) mmH g ABG HCO3 (22-26) mmol/L ABG O2 Saturation ABG Base Excess (-2.0-2.0) mmol/ L Rahul Test A-a O2 Gradient Hematocrit (37-47) % Hgb O2 Saturation (95-100) % Carboxyhemoglobin (0.4-20.1) %THgb Methemoglobin (0.4-1.5) % Total Hemoglobin (12-16) g/dL Ionized Calcium (1.1-1.4) mmol/L O2 Delivery Device Dowel Sander Operator ID Sodium 134 L (136-145) mmol/L Potassium 7.6 H* (3.5-5.1) mmol/L Chloride 92 L (98-107) mmol/L Carbon Dioxide 15 L (22-29) mmol/L Anion Gap 34.6 H (5-19) BUN 91 H* D (8-23) mg/dL Creatinine 6.9 H* (0.5-0.9) mg/dL GFR Calculation Not Reportable Glucose 106 (65-115) mg/dL Calculated Osmolal ity 306 H (285-295) mOsm/k g Lactic Acid 2.8 H (0.5-2.2) mmol/L Lactate (0.5-2.2) mmol/L Calcium 8.7 (8.5-10.5) mg/dL Magnesium (1.7-2.3) mg/dL Total Bilirubin 0.3 (0.15-1.2) mg/dL AST 15 (0-32) U/L ALT 11 (0-33) U/L Alkaline Phosphata se 158 H (35-105) IU/L Creatine Kinase (26-192) U/L Troponin T Baselin e NT-Pro-B Natriuret Pep 6766 H (0-125) pg/mL Total Protein 5.9 L (6.6-8.7) g/dL Albumin 3.6 (3.5-5.2) g/dL Globulin 2.3 (1.3-4.6) g/dL TSH (0.27-4.20) uIU/ mL Urine Color (Yellow) Urine Appearance (CLEAR) Urine pH (5-7) Ur Specific Gravit y (1.005-1.030) Urine Protein (Negative) Urine Glucose (UA) (Normal) Urine Ketones (Negative) Urine Blood (Negative) Urine Nitrate (Negative) Urine Bilirubin (Negative) Urine Urobilinogen (Negative) mg/dL Ur Leukocyte Amy ase (Negative) Urine RBC (0-2) /hpf Urine WBC (0-5) /hpf Ur Squamous Epith Cells (0-5) /hpf Ur Transition Epit h Cell /hpf Calcium Oxalate Cr ystal /hpf Amorphous Sediment /hpf Urine Bacteria (NONE) /hpf Coarse Granular Ca sts /lpf Urine Yeast /hpf Complement C3 (90-180) mg/dL Complement C4 (10-40) mg/dL 09/19/20 09/19/20 09/19/20 Range/Units 14:06 14:55 14:55 WBC (4.0-10.0) 10^3/ uL RBC (4.1-5.3) 10^6/u L Hgb (11.5-15.3) g/dL Hct (37.0-47.0) % MCV (81-99) fL MCH (28.0-34.0) pg MCHC (30.0-36.0) g/dL RDW (12.1-15.1) % Plt Count (130-400) 10^3/c mm MPV (7.4-10.4) fL Neut % (Auto) % Lymph % (Auto) % [place] % (Auto) % Eos % (Auto) % Baso % (Auto) % Neut # (Auto) (1.8-7.7) 10^3/u L Lymph # (Auto) (0.8-4.8) 10^3/u L [place] # (Auto) (0.2-0.9) 10^3/u L Eos # (Auto) (0.0-0.8) 10^3/u L Baso # (Auto) (0.0-0.1) 10^3/u L Nucleated RBC % (a uto) % Nucleated RBCs # /100WBC Specimen Type Sample Site ABG pH (7.35-7.45) ABG pCO2 (35-45) mmHg ABG pO2 (80.0-100.0) mmH g ABG HCO3 (22-26) mmol/L ABG O2 Saturation ABG Base Excess (-2.0-2.0) mmol/ L Rahul Test A-a O2 Gradient Hematocrit (37-47) % Hgb O2 Saturation (95-100) % Carboxyhemoglobin (0.4-20.1) %THgb Methemoglobin (0.4-1.5) % Total Hemoglobin (12-16) g/dL Ionized Calcium (1.1-1.4) mmol/L O2 Delivery Device Dowel Sander Operator ID Sodium Cancelled (136-145) mmol/L Potassium Cancelled (3.5-5.1) mmol/L Chloride Cancelled (98-107) mmol/L Carbon Dioxide Cancelled (22-29) mmol/L Anion Gap Cancelled (5-19) BUN Cancelled (8-23) mg/dL Creatinine Cancelled (0.5-0.9) mg/dL GFR Calculation Cancelled Glucose Cancelled (65-115) mg/dL Calculated Osmolal ity Cancelled (285-295) mOsm/k g Lactic Acid (0.5-2.2) mmol/L Lactate (0.5-2.2) mmol/L Calcium Cancelled (8.5-10.5) mg/dL Magnesium (1.7-2.3) mg/dL Total Bilirubin (0.15-1.2) mg/dL AST (0-32) U/L ALT (0-33) U/L Alkaline Phosphata se (35-105) IU/L Creatine Kinase 120 (26-192) U/L Troponin T Baselin e Cancelled 58 H NT-Pro-B Natriuret Pep (0-125) pg/mL Total Protein (6.6-8.7) g/dL Albumin (3.5-5.2) g/dL Globulin (1.3-4.6) g/dL TSH 1.89 (0.27-4.20) uIU/ mL Urine Color (Yellow) Urine Appearance (CLEAR) Urine pH (5-7) Ur Specific Gravit y (1.005-1.030) Urine Protein (Negative) Urine Glucose (UA) (Normal) Urine Ketones (Negative) Urine Blood (Negative) Urine Nitrate (Negative) Urine Bilirubin (Negative) Urine Urobilinogen (Negative) mg/dL Ur Leukocyte Amy ase (Negative) Urine RBC (0-2) /hpf Urine WBC (0-5) /hpf Ur Squamous Epith Cells (0-5) /hpf Ur Transition Epit h Cell /hpf Calcium Oxalate Cr ystal /hpf Amorphous Sediment /hpf Urine Bacteria (NONE) /hpf Coarse Granular Ca sts /lpf Urine Yeast /hpf Complement C3 141 (90-180) mg/dL Complement C4 35 (10-40) mg/dL 09/19/20 09/19/20 09/19/20 Range/Units 15:11 16:00 17:15 WBC (4.0-10.0) 10^3/ uL RBC (4.1-5.3) 10^6/u L Hgb (11.5-15.3) g/dL Hct (37.0-47.0) % MCV (81-99) fL MCH (28.0-34.0) pg MCHC (30.0-36.0) g/dL RDW (12.1-15.1) % Plt Count (130-400) 10^3/c mm MPV (7.4-10.4) fL Neut % (Auto) % Lymph % (Auto) % [place] % (Auto) % Eos % (Auto) % Baso % (Auto) % Neut # (Auto) (1.8-7.7) 10^3/u L Lymph # (Auto) (0.8-4.8) 10^3/u L [place] # (Auto) (0.2-0.9) 10^3/u L Eos # (Auto) (0.0-0.8) 10^3/u L Baso # (Auto) (0.0-0.1) 10^3/u L Nucleated RBC % (a uto) % Nucleated RBCs # /100WBC Specimen Type Arterial Sample Site Radial, left ABG pH 7.25 L (7.35-7.45) ABG pCO2 37.8 (35-45) mmHg ABG pO2 235.0 H (80.0-100.0) mmH g ABG HCO3 16.6 L (22-26) mmol/L ABG O2 Saturation 99.9 ABG Base Excess -9.9 L (-2.0-2.0) mmol/ L Rahul Test Pos A-a O2 Gradient Not Reportable Hematocrit 34.5 L (37-47) % Hgb O2 Saturation 97.9 (95-100) % Carboxyhemoglobin 0.9 (0.4-20.1) %THgb Methemoglobin 1.1 (0.4-1.5) % Total Hemoglobin 11.3 L (12-16) g/dL Ionized Calcium 1.1 (1.1-1.4) mmol/L O2 Delivery Device Not Reportable Dowel Sander Operator ID glc Sodium 134.0 137 (136-145) mmol/L Potassium 6.3 H 5.0 (3.5-5.1) mmol/L Chloride (98-107) mmol/L Carbon Dioxide (22-29) mmol/L Anion Gap (5-19) BUN (8-23) mg/dL Creatinine (0.5-0.9) mg/dL GFR Calculation Not Reportable Glucose 102.0 (65-115) mg/dL Calculated Osmolal ity (285-295) mOsm/k g Lactic Acid (0.5-2.2) mmol/L Lactate (0.5-2.2) mmol/L Calcium 8.9 (8.5-10.5) mg/dL Magnesium 2.0 (1.7-2.3) mg/dL Total Bilirubin 0.2 (0.15-1.2) mg/dL AST 11 (0-32) U/L ALT 11 (0-33) U/L Alkaline Phosphata se (35-105) IU/L Creatine Kinase (26-192) U/L Troponin T Baselin e NT-Pro-B Natriuret Pep (0-125) pg/mL Total Protein (6.6-8.7) g/dL Albumin (3.5-5.2) g/dL Globulin 2.0 (1.3-4.6) g/dL TSH (0.27-4.20) uIU/ mL Urine Color Yellow (Yellow) Urine Appearance Cloudy (CLEAR) Urine pH 5 (5-7) Ur Specific Gravit y 1.020 (1.005-1.030) Urine Protein 1+ H (Negative) Urine Glucose (UA) Norm (Normal) Urine Ketones 1+ H (Negative) Urine Blood 2+ H (Negative) Urine Nitrate Negative (Negative) Urine Bilirubin Neg (Negative) Urine Urobilinogen Norm (Negative) mg/dL Ur Leukocyte Amy ase Trace H (Negative) Urine RBC 5-10 H (0-2) /hpf Urine WBC 0-4 H (0-5) /hpf Ur Squamous Epith Cells 5-10 H (0-5) /hpf Ur Transition Epit h Cell 0-4 /hpf Calcium Oxalate Cr ystal 0-4 H /hpf Amorphous Sediment 1+ /hpf Urine Bacteria 1+ H (NONE) /hpf Coarse Granular Ca sts 5-10 H /lpf Urine Yeast 2+ H /hpf Complement C3 (90-180) mg/dL Complement C4 (10-40) mg/dL 09/19/20 Range/Units 17:15 WBC (4.0-10.0) 10^3/ uL RBC (4.1-5.3) 10^6/u L Hgb (11.5-15.3) g/dL Hct (37.0-47.0) % MCV (81-99) fL MCH (28.0-34.0) pg MCHC (30.0-36.0) g/dL RDW (12.1-15.1) % Plt Count (130-400) 10^3/c mm MPV (7.4-10.4) fL Neut % (Auto) % Lymph % (Auto) % [place] % (Auto) % Eos % (Auto) % Baso % (Auto) % Neut # (Auto) (1.8-7.7) 10^3/u L Lymph # (Auto) (0.8-4.8) 10^3/u L [place] # (Auto) (0.2-0.9) 10^3/u L Eos # (Auto) (0.0-0.8) 10^3/u L Baso # (Auto) (0.0-0.1) 10^3/u L Nucleated RBC % (a uto) % Nucleated RBCs # /100WBC Specimen Type Sample Site ABG pH (7.35-7.45) ABG pCO2 (35-45) mmHg ABG pO2 (80.0-100.0) mmH g ABG HCO3 (22-26) mmol/L ABG O2 Saturation ABG Base Excess (-2.0-2.0) mmol/ L Rahul Test A-a O2 Gradient Hematocrit (37-47) % Hgb O2 Saturation (95-100) % Carboxyhemoglobin (0.4-20.1) %THgb Methemoglobin (0.4-1.5) % Total Hemoglobin (12-16) g/dL Ionized Calcium (1.1-1.4) mmol/L O2 Delivery Device Dowel Sander Operator ID Sodium (136-145) mmol/L Potassium (3.5-5.1) mmol/L Chloride (98-107) mmol/L Carbon Dioxide (22-29) mmol/L Anion Gap (5-19) BUN (8-23) mg/dL Creatinine (0.5-0.9) mg/dL GFR Calculation Glucose (65-115) mg/dL Calculated Osmolal ity (285-295) mOsm/k g Lactic Acid (0.5-2.2) mmol/L Lactate 3.9 H (0.5-2.2) mmol/L Calcium (8.5-10.5) mg/dL Magnesium (1.7-2.3) mg/dL Total Bilirubin (0.15-1.2) mg/dL AST (0-32) U/L ALT (0-33) U/L Alkaline Phosphata se (35-105) IU/L Creatine Kinase (26-192) U/L Troponin T Baselin e NT-Pro-B Natriuret Pep (0-125) pg/mL Total Protein (6.6-8.7) g/dL Albumin (3.5-5.2) g/dL Globulin (1.3-4.6) g/dL TSH (0.27-4.20) uIU/ mL Urine Color (Yellow) Urine Appearance (CLEAR) Urine pH (5-7) Ur Specific Gravit y (1.005-1.030) Urine Protein (Negative) Urine Glucose (UA) (Normal) Urine Ketones (Negative) Urine Blood (Negative) Urine Nitrate (Negative) Urine Bilirubin (Negative) Urine Urobilinogen (Negative) mg/dL Ur Leukocyte Amy ase (Negative) Urine RBC (0-2) /hpf Urine WBC (0-5) /hpf Ur Squamous Epith Cells (0-5) /hpf Ur Transition Epit h Cell /hpf Calcium Oxalate Cr ystal /hpf Amorphous Sediment /hpf Urine Bacteria (NONE) /hpf Coarse Granular Ca sts /lpf Urine Yeast /hpf Complement C3 (90-180) mg/dL Complement C4 (10-40) mg/dL Imaging Data^: CXR: Attestation: I personally reviewed and interpreted this imaging study as follows: Radiologist's impression: [id number] [address] XRay Report Signed Patient: Courtney Barrios Unit #: [id number] : 1950 Age/Sex: 70 / F ADM Date: 09/19/20 Loc: ER Room/Bed: Attending Dr: Ordering Provider/Ordering MD: Sunil Ruelas Date of Service: 09/19/20 Procedure(s): XR chest 1V portable [id number] Accession Number(s): [id number] Report Number: [id number] PROCEDURE INFORMATION: Exam: XR Chest, 1 View Exam date and time: 09/19/2020 1:37 PM Age: 70 years old Clinical indication: Other: Weakness TECHNIQUE: Imaging protocol: XR of the chest Views: 1 view. COMPARISON: CR XR chest 1V portable [id number] 12/28/2019 4:44 PM FINDINGS: Lungs: Unremarkable. No consolidation. Pleural space: Unremarkable. No pleural effusion. No pneumothorax. Heart/Mediastinum: Unremarkable. No cardiomegaly. Bones/joints: Unremarkable. XR/XR chest 1V portable [id number] IMPRESSION: No acute findings. Dictated By: Kelvin Lo Signed By: Kelvin Lo Signed Date/Time: 09/19/20 1346 DD/ 1345 CT Head: Attestation: I personally reviewed and interpreted this imaging study as follows: Radiologist's impression: [facility] [address] [place] [address] CT Scan Report Signed Patient: Courtney Barrios Unit #: [id number] : 1950 Age/Sex: 70 / F ADM Date: 09/19/20 Loc: ER Room/Bed: Attending Dr: Ordering Provider/Ordering MD: Sunil Ruelas Date of Service: 09/19/20 Procedure(s): CT head wo con* [id number] Accession Number(s): [id number] Report Number: [id number] WS: [id number] CT HEAD NONCONTRAST HISTORY: ams TECHNIQUE: Contiguous axial imaging performed through the brain in 2.5 mm imaging. Bone and soft tissue windows. Sagittal and coronal reformats reviewed. All CT scans at [facility] use at least one of these dose optimization techniques: automated exposure control; mA and/or kV adjustment per patient size (includes targeted exams where dose is matched to clinical indication); or iterative reconstruction. DLP: 820.99 mGy.cm COMPARISON: 04/07/2012 No acute intracranial hemorrhage, midline shift or mass effect. Mild atrophy and chronic microvascular ischemic changes. There is artifact through the cerebrum by the overlying external devices. Ventricles: Normal size with no hydrocephalus. Paranasal sinuses: As visualized are clear. Mastoid air cells: Well pneumatized. Calvarium and scalp: Hyperostosis frontalis interna. CT/CT head wo con* [id number] IMPRESSION: 1. No acute intracranial hemorrhage or edema. 2. Mild atrophy and chronic ischemic disease. Dictated By: Nevin Coyle DO Signed By: Nevin Coyle DO Signed Date/Time: 09/19/20 1353 DD/ 1351 EKG Data^: EKG 1: Attestation: I personally reviewed and interpreted this EKG as follows: EKG interpretation date: 09/19/20 Interpretation: Normal sinus rhythm, 81 bpm, no ST segment elevation or depression seen. Discharge Plan Discharge Patient Disposition: Admitted As Inpatient Clinical Impression: Acute hyperkalemia Acute renal failure Qualifiers: Acute renal failure type: unspecified Qualified Code(s): N17.9 - Acute kidney failure, unspecified Condition: Stable Sign Out Sign Out Data: Patient Sign Out occurred on 09/19/20 at 15:26. Patient's care was discussed, and care was transferred from to Adeline Rader. Coding Level of Care Code ED Supervisor Forming And Tempering for Chg Fwd Exam Comprehensive Documented by User: Adeline Rader 09/19/20 18:07 HPI - Weakness General: Chief complaint: Weakness Stated complaint: BILATERAL LEG WEAKNESS/ BACK PAIN Time Seen by Provider: 09/19/20 12:58 PFSH ED PFSH: Medical History Aneurysm of infrarenal abdominal aorta Arthritis Bacterial UTI COPD (chronic obstructive pulmonary disease) with chronic bronchitis Patient sees Dr. Poly Barajas in [place], [place] [phone] Diabetes mellitus, type II Essential hypertension Fibromyalgia H/O adenomatous polyp of colon H/O malignant neoplasm of breast Dr. Inocencia Reddy in [facility] is Oncologist. [facility] [phone] Lumbar disc disease Lupus Mixed hyperlipidemia Post-laminectomy syndrome Thoracic aortic aneurysm (TAA) Social History Smoking and tobacco status: former smoker Second hand smoke exposure: No Smoking risk assessment/counseling performed?: No Course Vital Signs: Vital signs: Vital Signs Temperature 97.9 F 09/19/20 12:55 Pulse Rate 83 09/19/20 18:00 Respiratory Rate 18 09/19/20 18:00 Blood Pressure 74/48 09/19/20 18:00 Pulse Oximetry 96 09/19/20 18:00 MDM - Weakness MDM Narrative: Medical decision making narrative: 1530 -patient care assumed by me from Sunil Ruelas. Please see his note for his history, physical exam and medical decision-making notes. Mrs. Irvin 70-year-old female who comes in with acute renal failure. Findings to cause this are likely multifactorial due to decreased p.o. input, multiple nephrotoxic medications and overdiuresis. Hyperkalemic cocktail of calcium gluconate, insulin, glucose, albuterol, sodium bicarb and Kayexalate have all been given. The case was endorsed to Dr. Mcnally, he agrees to admit. Nephrology has been consulted. 1806 -patient's repeat potassium is 5. We will have the patient go to the ICU as previously arranged. Looks as though she will need emergent dialysis at this time. Lab Data: Attestation: I reviewed the patient's lab results. Labs: Lab Results 09/19/20 09/19/20 09/19/20 Range/Units 14:02 14:06 14:06 WBC 11.3 H (4.0-10.0) 10^3/ uL RBC 4.51 (4.1-5.3) 10^6/u L Hgb 11.6 (11.5-15.3) g/dL Hct 38.3 (37.0-47.0) % MCV 84.9 (81-99) fL MCH 25.7 L (28.0-34.0) pg MCHC 30.3 (30.0-36.0) g/dL RDW 15.9 H (12.1-15.1) % Plt Count 340 (130-400) 10^3/c mm MPV 11.4 H (7.4-10.4) fL Neut % (Auto) 68.6 % Lymph % (Auto) 22.2 % [place] % (Auto) 8.1 % Eos % (Auto) 0.3 % Baso % (Auto) 0.4 % Neut # (Auto) 7.75 H (1.8-7.7) 10^3/u L Lymph # (Auto) 2.5 (0.8-4.8) 10^3/u L [place] # (Auto) 0.9 (0.2-0.9) 10^3/u L Eos # (Auto) 0.0 (0.0-0.8) 10^3/u L Baso # (Auto) 0.0 (0.0-0.1) 10^3/u L Nucleated RBC % (a uto) 0 % Nucleated RBCs # 0.0 /100WBC Specimen Type Sample Site ABG pH (7.35-7.45) ABG pCO2 (35-45) mmHg ABG pO2 (80.0-100.0) mmH g ABG HCO3 (22-26) mmol/L ABG O2 Saturation ABG Base Excess (-2.0-2.0) mmol/ L Rahul Test A-a O2 Gradient Hematocrit (37-47) % Hgb O2 Saturation (95-100) % Carboxyhemoglobin (0.4-20.1) %THgb Methemoglobin (0.4-1.5) % Total Hemoglobin (12-16) g/dL Ionized Calcium (1.1-1.4) mmol/L O2 Delivery Device Dowel Sander Operator ID Sodium 134 L (136-145) mmol/L Potassium 7.6 H* (3.5-5.1) mmol/L Chloride 92 L (98-107) mmol/L Carbon Dioxide 15 L (22-29) mmol/L Anion Gap 34.6 H (5-19) BUN 91 H* D (8-23) mg/dL Creatinine 6.9 H* (0.5-0.9) mg/dL GFR Calculation Not Reportable Glucose 106 (65-115) mg/dL Calculated Osmolal ity 306 H (285-295) mOsm/k g Lactic Acid 2.8 H (0.5-2.2) mmol/L Lactate (0.5-2.2) mmol/L Calcium 8.7 (8.5-10.5) mg/dL Magnesium (1.7-2.3) mg/dL Total Bilirubin 0.3 (0.15-1.2) mg/dL AST 15 (0-32) U/L ALT 11 (0-33) U/L Alkaline Phosphata se 158 H (35-105) IU/L Creatine Kinase (26-192) U/L Troponin T Baselin e NT-Pro-B Natriuret Pep 6766 H (0-125) pg/mL Total Protein 5.9 L (6.6-8.7) g/dL Albumin 3.6 (3.5-5.2) g/dL Globulin 2.3 (1.3-4.6) g/dL TSH (0.27-4.20) uIU/ mL Urine Color (Yellow) Urine Appearance (CLEAR) Urine pH (5-7) Ur Specific Gravit y (1.005-1.030) Urine Protein (Negative) Urine Glucose (UA) (Normal) Urine Ketones (Negative) Urine Blood (Negative) Urine Nitrate (Negative) Urine Bilirubin (Negative) Urine Urobilinogen (Negative) mg/dL Ur Leukocyte Amy ase (Negative) Urine RBC (0-2) /hpf Urine WBC (0-5) /hpf Ur Squamous Epith Cells (0-5) /hpf Ur Transition Epit h Cell /hpf Calcium Oxalate Cr ystal /hpf Amorphous Sediment /hpf Urine Bacteria (NONE) /hpf Coarse Granular Ca sts /lpf Urine Yeast /hpf Complement C3 (90-180) mg/dL Complement C4 (10-40) mg/dL 09/19/20 09/19/20 09/19/20 Range/Units 14:06 14:55 14:55 WBC (4.0-10.0) 10^3/ uL RBC (4.1-5.3) 10^6/u L Hgb (11.5-15.3) g/dL Hct (37.0-47.0) % MCV (81-99) fL MCH (28.0-34.0) pg MCHC (30.0-36.0) g/dL RDW (12.1-15.1) % Plt Count (130-400) 10^3/c mm MPV (7.4-10.4) fL Neut % (Auto) % Lymph % (Auto) % [place] % (Auto) % Eos % (Auto) % Baso % (Auto) % Neut # (Auto) (1.8-7.7) 10^3/u L Lymph # (Auto) (0.8-4.8) 10^3/u L [place] # (Auto) (0.2-0.9) 10^3/u L Eos # (Auto) (0.0-0.8) 10^3/u L Baso # (Auto) (0.0-0.1) 10^3/u L Nucleated RBC % (a uto) % Nucleated RBCs # /100WBC Specimen Type Sample Site ABG pH (7.35-7.45) ABG pCO2 (35-45) mmHg ABG pO2 (80.0-100.0) mmH g ABG HCO3 (22-26) mmol/L ABG O2 Saturation ABG Base Excess (-2.0-2.0) mmol/ L Rahul Test A-a O2 Gradient Hematocrit (37-47) % Hgb O2 Saturation (95-100) % Carboxyhemoglobin (0.4-20.1) %THgb Methemoglobin (0.4-1.5) % Total Hemoglobin (12-16) g/dL Ionized Calcium (1.1-1.4) mmol/L O2 Delivery Device Dowel Sander Operator ID Sodium Cancelled (136-145) mmol/L Potassium Cancelled (3.5-5.1) mmol/L Chloride Cancelled (98-107) mmol/L Carbon Dioxide Cancelled (22-29) mmol/L Anion Gap Cancelled (5-19) BUN Cancelled (8-23) mg/dL Creatinine Cancelled (0.5-0.9) mg/dL GFR Calculation Cancelled Glucose Cancelled (65-115) mg/dL Calculated Osmolal ity Cancelled (285-295) mOsm/k g Lactic Acid (0.5-2.2) mmol/L Lactate (0.5-2.2) mmol/L Calcium Cancelled (8.5-10.5) mg/dL Magnesium (1.7-2.3) mg/dL Total Bilirubin (0.15-1.2) mg/dL AST (0-32) U/L ALT (0-33) U/L Alkaline Phosphata se (35-105) IU/L Creatine Kinase 120 (26-192) U/L Troponin T Baselin e Cancelled 58 H NT-Pro-B Natriuret Pep (0-125) pg/mL Total Protein (6.6-8.7) g/dL Albumin (3.5-5.2) g/dL Globulin (1.3-4.6) g/dL TSH 1.89 (0.27-4.20) uIU/ mL Urine Color (Yellow) Urine Appearance (CLEAR) Urine pH (5-7) Ur Specific Gravit y (1.005-1.030) Urine Protein (Negative) Urine Glucose (UA) (Normal) Urine Ketones (Negative) Urine Blood (Negative) Urine Nitrate (Negative) Urine Bilirubin (Negative) Urine Urobilinogen (Negative) mg/dL Ur Leukocyte Amy ase (Negative) Urine RBC (0-2) /hpf Urine WBC (0-5) /hpf Ur Squamous Epith Cells (0-5) /hpf Ur Transition Epit h Cell /hpf Calcium Oxalate Cr ystal /hpf Amorphous Sediment /hpf Urine Bacteria (NONE) /hpf Coarse Granular Ca sts /lpf Urine Yeast /hpf Complement C3 141 (90-180) mg/dL Complement C4 35 (10-40) mg/dL 09/19/20 09/19/20 09/19/20 Range/Units 15:11 16:00 17:15 WBC (4.0-10.0) 10^3/ uL RBC (4.1-5.3) 10^6/u L Hgb (11.5-15.3) g/dL Hct (37.0-47.0) % MCV (81-99) fL MCH (28.0-34.0) pg MCHC (30.0-36.0) g/dL RDW (12.1-15.1) % Plt Count (130-400) 10^3/c mm MPV (7.4-10.4) fL Neut % (Auto) % Lymph % (Auto) % [place] % (Auto) % Eos % (Auto) % Baso % (Auto) % Neut # (Auto) (1.8-7.7) 10^3/u L Lymph # (Auto) (0.8-4.8) 10^3/u L [place] # (Auto) (0.2-0.9) 10^3/u L Eos # (Auto) (0.0-0.8) 10^3/u L Baso # (Auto) (0.0-0.1) 10^3/u L Nucleated RBC % (a uto) % Nucleated RBCs # /100WBC Specimen Type Arterial Sample Site Radial, left ABG pH 7.25 L (7.35-7.45) ABG pCO2 37.8 (35-45) mmHg ABG pO2 235.0 H (80.0-100.0) mmH g ABG HCO3 16.6 L (22-26) mmol/L ABG O2 Saturation 99.9 ABG Base Excess -9.9 L (-2.0-2.0) mmol/ L Rahul Test Pos A-a O2 Gradient Not Reportable Hematocrit 34.5 L (37-47) % Hgb O2 Saturation 97.9 (95-100) % Carboxyhemoglobin 0.9 (0.4-20.1) %THgb Methemoglobin 1.1 (0.4-1.5) % Total Hemoglobin 11.3 L (12-16) g/dL Ionized Calcium 1.1 (1.1-1.4) mmol/L O2 Delivery Device Not Reportable Dowel Sander Operator ID glc Sodium 134.0 137 (136-145) mmol/L Potassium 6.3 H 5.0 (3.5-5.1) mmol/L Chloride (98-107) mmol/L Carbon Dioxide (22-29) mmol/L Anion Gap (5-19) BUN (8-23) mg/dL Creatinine (0.5-0.9) mg/dL GFR Calculation Not Reportable Glucose 102.0 (65-115) mg/dL Calculated Osmolal ity (285-295) mOsm/k g Lactic Acid (0.5-2.2) mmol/L Lactate (0.5-2.2) mmol/L Calcium 8.9 (8.5-10.5) mg/dL Magnesium 2.0 (1.7-2.3) mg/dL Total Bilirubin 0.2 (0.15-1.2) mg/dL AST 11 (0-32) U/L ALT 11 (0-33) U/L Alkaline Phosphata se (35-105) IU/L Creatine Kinase (26-192) U/L Troponin T Baselin e NT-Pro-B Natriuret Pep (0-125) pg/mL Total Protein (6.6-8.7) g/dL Albumin (3.5-5.2) g/dL Globulin 2.0 (1.3-4.6) g/dL TSH (0.27-4.20) uIU/ mL Urine Color Yellow (Yellow) Urine Appearance Cloudy (CLEAR) Urine pH 5 (5-7) Ur Specific Gravit y 1.020 (1.005-1.030) Urine Protein 1+ H (Negative) Urine Glucose (UA) Norm (Normal) Urine Ketones 1+ H (Negative) Urine Blood 2+ H (Negative) Urine Nitrate Negative (Negative) Urine Bilirubin Neg (Negative) Urine Urobilinogen Norm (Negative) mg/dL Ur Leukocyte Amy ase Trace H (Negative) Urine RBC 5-10 H (0-2) /hpf Urine WBC 0-4 H (0-5) /hpf Ur Squamous Epith Cells 5-10 H (0-5) /hpf Ur Transition Epit h Cell 0-4 /hpf Calcium Oxalate Cr ystal 0-4 H /hpf Amorphous Sediment 1+ /hpf Urine Bacteria 1+ H (NONE) /hpf Coarse Granular Ca sts 5-10 H /lpf Urine Yeast 2+ H /hpf Complement C3 (90-180) mg/dL Complement C4 (10-40) mg/dL 09/19/20 Range/Units 17:15 WBC (4.0-10.0) 10^3/ uL RBC (4.1-5.3) 10^6/u L Hgb (11.5-15.3) g/dL Hct (37.0-47.0) % MCV (81-99) fL MCH (28.0-34.0) pg MCHC (30.0-36.0) g/dL RDW (12.1-15.1) % Plt Count (130-400) 10^3/c mm MPV (7.4-10.4) fL Neut % (Auto) % Lymph % (Auto) % [place] % (Auto) % Eos % (Auto) % Baso % (Auto) % Neut # (Auto) (1.8-7.7) 10^3/u L Lymph # (Auto) (0.8-4.8) 10^3/u L [place] # (Auto) (0.2-0.9) 10^3/u L Eos # (Auto) (0.0-0.8) 10^3/u L Baso # (Auto) (0.0-0.1) 10^3/u L Nucleated RBC % (a uto) % Nucleated RBCs # /100WBC Specimen Type Sample Site ABG pH (7.35-7.45) ABG pCO2 (35-45) mmHg ABG pO2 (80.0-100.0) mmH g ABG HCO3 (22-26) mmol/L ABG O2 Saturation ABG Base Excess (-2.0-2.0) mmol/ L Rahul Test A-a O2 Gradient Hematocrit (37-47) % Hgb O2 Saturation (95-100) % Carboxyhemoglobin (0.4-20.1) %THgb Methemoglobin (0.4-1.5) % Total Hemoglobin (12-16) g/dL Ionized Calcium (1.1-1.4) mmol/L O2 Delivery Device Dowel Sander Operator ID Sodium (136-145) mmol/L Potassium (3.5-5.1) mmol/L Chloride (98-107) mmol/L Carbon Dioxide (22-29) mmol/L Anion Gap (5-19) BUN (8-23) mg/dL Creatinine (0.5-0.9) mg/dL GFR Calculation Glucose (65-115) mg/dL Calculated Osmolal ity (285-295) mOsm/k g Lactic Acid (0.5-2.2) mmol/L Lactate 3.9 H (0.5-2.2) mmol/L Calcium (8.5-10.5) mg/dL Magnesium (1.7-2.3) mg/dL Total Bilirubin (0.15-1.2) mg/dL AST (0-32) U/L ALT (0-33) U/L Alkaline Phosphata se (35-105) IU/L Creatine Kinase (26-192) U/L Troponin T Baselin e NT-Pro-B Natriuret Pep (0-125) pg/mL Total Protein (6.6-8.7) g/dL Albumin (3.5-5.2) g/dL Globulin (1.3-4.6) g/dL TSH (0.27-4.20) uIU/ mL Urine Color (Yellow) Urine Appearance (CLEAR) Urine pH (5-7) Ur Specific Gravit y (1.005-1.030) Urine Protein (Negative) Urine Glucose (UA) (Normal) Urine Ketones (Negative) Urine Blood (Negative) Urine Nitrate (Negative) Urine Bilirubin (Negative) Urine Urobilinogen (Negative) mg/dL Ur Leukocyte Amy ase (Negative) Urine RBC (0-2) /hpf Urine WBC (0-5) /hpf Ur Squamous Epith Cells (0-5) /hpf Ur Transition Epit h Cell /hpf Calcium Oxalate Cr ystal /hpf Amorphous Sediment /hpf Urine Bacteria (NONE) /hpf Coarse Granular Ca sts /lpf Urine Yeast /hpf Complement C3 (90-180) mg/dL Complement C4 (10-40) mg/dL Imaging Data^: CXR: Attestation: I personally reviewed and interpreted this imaging study as follows: My impression: Possible mild pulmonary vascular congestion CT Head: Radiologist's impression: [address] [place] [address] CT Scan Report Signed Patient: Courtney Barrios Unit #: [id number] : 1950 Age/Sex: 70 / F ADM Date: 09/19/20 Loc: ER Room/Bed: Attending Dr: Ordering Provider/Ordering MD: Sunil Ruelas Date of Service: 09/19/20 Procedure(s): CT head wo con* [id number] Accession Number(s): [id number] Report Number: [id number] WS: [id number] CT HEAD NONCONTRAST HISTORY: ams TECHNIQUE: Contiguous axial imaging performed through the brain in 2.5 mm imaging. Bone and soft tissue windows. Sagittal and coronal reformats reviewed. All CT scans at [facility] use at least one of these dose optimization techniques: automated exposure control; mA and/or kV adjustment per patient size (includes targeted exams where dose is matched to clinical indication); or iterative reconstruction. DLP: 820.99 mGy.cm COMPARISON: 04/07/2012 No acute intracranial hemorrhage, midline shift or mass effect. Mild atrophy and chronic microvascular ischemic changes. There is artifact through the cerebrum by the overlying external devices. Ventricles: Normal size with no hydrocephalus. Paranasal sinuses: As visualized are clear. Mastoid air cells: Well pneumatized. Calvarium and scalp: Hyperostosis frontalis interna. CT/CT head wo con* [id number] IMPRESSION: 1. No acute intracranial hemorrhage or edema. 2. Mild atrophy and chronic ischemic disease. Dictated By: Nvein Coyle DO Signed By: Nevin Coyle DO Signed Date/Time: 09/19/20 1353 DD/ 1351 EKG Data^: EKG 1: Attestation: I personally reviewed and interpreted this EKG as follows: EKG interpretation date: 09/19/20 EKG interpretation time: 14:23 Interpretation: Normal sinus rhythm at 81 beats a minute, no blocks, normal intervals, normal T waves. EKG 2: Attestation: I personally reviewed and interpreted this EKG as follows: EKG interpretation date: 09/19/20 EKG interpretation time: 16:26 Interpretation: Normal sinus rhythm at 81 beats a minute, normal T waves. No acute ST-T wave changes. Normal intervals. Discharge Plan Discharge Patient Disposition: Admitted As Inpatient Clinical Impression: Acute hyperkalemia Acute renal failure Qualifiers: Acute renal failure type: unspecified Qualified Code(s): N17.9 - Acute kidney failure, unspecified Condition: Stable Sign Out Sign Out Data: Patient Sign Out occurred on 09/19/20 at 15:26. Patient's care was discussed, and care was transferred from to Adeline Rader. Coding Level of Care Code ED Supervisor Forming And Tempering for Genevieve Fwd Exam Comprehensive
--- NOTE | 2020-09-19 13:11 | XRR_ITS ---
PROCEDURE INFORMATION: Exam: XR Chest, 1 View Exam date and time: 09/19/2020 1:37 PM Age: 70 years old Clinical indication: Other: Weakness TECHNIQUE: Imaging protocol: XR of the chest Views: 1 view. COMPARISON: CR XR chest 1V portable [id number] 12/28/2019 4:44 PM FINDINGS: Lungs: Unremarkable. No consolidation. Pleural space: Unremarkable. No pleural effusion. No pneumothorax. Heart/Mediastinum: Unremarkable. No cardiomegaly. Bones/joints: Unremarkable. XR/XR chest 1V portable [id number] IMPRESSION: No acute findings.
--- NOTE | 2020-09-19 13:11 | CT_ITS ---
WS: [id number] CT HEAD NONCONTRAST HISTORY: ams TECHNIQUE: Contiguous axial imaging performed through the brain in 2.5 mm imaging. Bone and soft tiss ue windows. Sagittal and coronal reformats reviewed. All CT scans at [facility] use at le ast one of these dose optimization techniques: automated exposure control; mA and/or kV adjustment pe r patient size (includes targeted exams where dose is matched to clinical indication); or iterative r econstruction. DLP: 820.99 mGy.cm COMPARISON: 04/07/2012 No acute intracranial hemorrhage, midline shift or mass effect. Mild atrophy and chronic microvascular ischemic changes. There is artifact through the cerebrum by th e overlying external devices. Ventricles: Normal size with no hydrocephalus. Paranasal sinuses: As visualized are clear. Mastoid air cells: Well pneumatized. Calvarium and scalp: Hyperostosis frontalis interna. CT/CT head wo con* [id number] IMPRESSION: 1. No acute intracranial hemorrhage or edema. 2. Mild atrophy and chronic ischemic disease.
--- NOTE | 2020-09-19 13:12 | ECG_ITS ---
[facility] Test Date: 2020-09-19 Pat Name: Courtney Barrios Department: Room: Gender: Female Racing Secretary: : 1950 Requested By: Sunil Ruelas Order Number: [id number] Burns MD: Nery Jansen M.D. Measurements Intervals [place] Rate: 81 P: -69 CA: 148 QRS: 60 QRSD: 105 T: 51 QT: 380 QTc: 442 Interpretive Statements SINUS RHYTHM Compared to ECG 12/28/2019 16:40:14 Sinus tachycardia no longer present Electronically Signed On 09-19-2020 20:23:17 DENTAL EQUIPMENT INSTALLER AND SERVICER by Nery Jansen M.D. [id number]
[2020-09-19 14:19] LABS: Basophils % 0.4 %; Eosinophils % 0.3 %; Hematocrit 38.3 % (37.0-47.0); Hemoglobin 11.6 g/dL (11.5-15.3); Lymphocytes # 2.5 10^3/uL (0.8-4.8); Lymphocytes % 22.2 %; Mean Corpuscular HGB Conc 30.3 g/dL (30.0-36.0); Mean Corpuscular Hemoglobin 25.7 pg (28.0-34.0); Mean Corpuscular Volume 84.9 fL (81-99); Mean Platelet Volume 11.4 fL (7.4-10.4); Monocytes # 0.9 10^3/uL (0.2-0.9); Monocytes % 8.1 %; Neutrophils # 7.75 10^3/uL (1.8-7.7); Neutrophils % 68.6 %; Nucleated Red Blood Cells % 0 %; Platelet Count 340 10^3/cmm (130-400); Red Blood Count 4.51 10^6/uL (4.1-5.3); Red Cell Distribution Width 15.9 % (12.1-15.1); White Blood Count 11.3 10^3/uL (4.0-10.0)
[2020-09-19 14:45] LABS: Alanine Aminotransferase 11 U/L (0-33); Albumin Level 3.6 g/dL (3.5-5.2); Alkaline Phosphatase 158 IU/L (35-105); Calcium 8.7 mg/dL (8.5-10.5); Carbon Dioxide 15 mmol/L (22-29); Chloride 92 mmol/L (98-107); Globulin 2.3 g/dL (1.3-4.6); Glucose 106 mg/dL (65-115); NT Pro B Type Natriuretic Pept 6766 pg/mL (0-125); Osmolality Calculated 306 mOsm/kg (285-295); Sodium 134 mmol/L (136-145); Total Bilirubin 0.3 mg/dL (0.15-1.2); Total Protein 5.9 g/dL (6.6-8.7)
[2020-09-19 14:51] LABS: Blood Urea Nitrogen 91 mg/dL (8-23)
[2020-09-19 14:52] LABS: Anion Gap 34.6 (5-19); Aspartate Amino Transferase 15 U/L (0-32); Potassium 7.6 mmol/L (3.5-5.1)
--- NOTE | 2020-09-19 15:12 | ECG_ITS ---
[facility] Test Date: 2020-09-19 Pat Name: Courtney Barrios Department: Room: Gender: Female Cut Off Saw Operator Metal: : 1950 Requested By: Sunil Ruelas Order Number: [id number] Burns MD: Nery Jansen M.D. Measurements Intervals [place] Rate: 81 P: -63 FL: 142 QRS: 60 QRSD: 100 T: 51 QT: 386 QTc: 449 Interpretive Statements SINUS RHYTHM Compared to ECG 09/19/2020 14:23:47 No significant changes Electronically Signed On 09-19-2020 20:49:04 MACHINE TRACER by Nery Jansen M.D. [id number]
[2020-09-19 15:21] LABS: Troponin(5th) Baseline 58 ng/L (0-10)
--- NOTE | 2020-09-19 15:29 | PM.HP ---
Providers/Chief Complaint Chief Complaint: BILATERAL LEG WEAKNESS/ BACK PAIN History of Present Illness 70 year old with past medical history of hypertension, dyslipidemia, hypothyroidism, congestive heart failure unspecified type, chronic obstructive pulmonary disease, obstructive sleep apnea ( non-compliant with nocturnal o2 ), diabetes mellitus, and recent back surgery at [facility] ( discharged on 08/24) who presented to ER today with 1 week history of progressive weakness with fall earlier today. Per daughter at bedside who provided history stated patient has been declining in this past week. She has been c/o difficulty ambulating due to bilateral LE weakness. This was associated with increasingly poor appetite and intermittent episode of altered mental status. States at times she did not recongize family members however shortly after would return to baseline. Earlier today family planned to take her out to restaurant however was requiring multiple persons to assist in ambulating and while attempted to get in to her truck she sustained a fall. No LOC. No head trauma or seizure like activity. No reported fever or chills. Noted nausea and two episodes of non-bloody emesis on 09/18. Denied any complaints of chest pain, dyspnea, abdominal pain, diarrhea or constipation. She was recently seen for post op follow up 2 weeks prior at [facility] during which time she was noted to have UTI. Had denied any dysuria, frequency or urgency. Completed course of ciprofloxacin on 09/12 Laboratory workup on arrival today showed a WBC of 11.3, hemoglobin of 11.6, hematocrit 38.3 and a platelet count of 340. sodium 134, potassium 7.6, chloride of 92, bicarb of 15, BUN of 91 and a creatinine of 6.9. LFT were WNL. ABG showd a PH of 7.25, Pco2 of 37.8, HCO3 of 16.6 and K of 6.3. Lactic acid of 2.8. TroponinT baseline of 58, 53.61 at 120 min ( delta negative 4.39), ProBNP of 6866. UA showed 1+ ketones, 2+ blood neg, trace leuk/nitrates. CPK 105. Rapid COVID-19 negative. Patient was given 1L bolus of NS, regular insulin 10 units IV x 1, D50 1 amp, calcium gluconate 1g iv x 1, Kayexelate 15g PO x 1 and high dose albuterol nebulized. Repeat lab work up had showed potassium improved to 5.0, creatinine increased to 7.7 and lactic acid increased to 3.9. Nephrology was then consulted and patient was started on sodium bicarb 75meq/NS at 125cchr. Inital vitals on arrival were BP of 161/109 however this decreased to 74/48. Temp of 97.9, HR of 82, RR of 18-22, 96 percent o2 on RA. imaging studies included chest x-ray which did not show any acute abnormality, head CT which showed mild atrophy and chronic ischemic disease. CT abdomen pelvis showed wall thickening of the small bowel loops in the left abdomen suspicious for nonspecific enteritis, stable diverticulosis, stable infrarenal abdominal aortic aneurysm and multiple old compression deformities of the vertebrae with appearance of prior kyphoplasty. Patient was admitted to intensive care unit. Review of Systems General: Reports: 10 or more systems reviewed and unremarkable except in HPI and below (ROS was completed with patients daughter at bedside. ) Medications/Allergies Home Medications Medication Instructions Recorded Confirmed Last Taken Type albuterol sulfate 90 mcg/actuation 2 puff INHALATION Q4H PRN 12/18/19 09/19/20 Unknown History aerosol inhaler esomeprazole magnesium 40 mg 40 mg PO DAILY@12/18/19 09/19/20 09/19/20 History capsule,delayed release fluticasone furoate 100 1 inh INHALATION DAILY@12/18/19 09/19/20 09/19/20 History mcg-vilanterol 25 mcg/dose inhalation powder levothyroxine 50 mcg tablet 50 mcg PO DAILY@12/18/19 09/19/20 09/18/20 History lisinopril 10 mg tablet 10 mg PO DAILY@12/18/19 09/19/20 09/18/20 History metformin 1,000 mg tablet 1,000 mg PO BID@12/18/19 09/19/20 09/18/20 History pravastatin 10 mg tablet 10 mg PO DAILY@12/18/19 09/19/20 09/18/20 History sertraline 100 mg tablet 100 mg PO DAILY@12/18/19 09/19/20 09/18/20 History acetaminophen [Tylenol Extra 1,000 mg PO PRN PRN 12/28/19 09/19/20 12/28/19 History Strength] furosemide 20 mg PO DAILY@08 12/28/19 09/19/20 09/18/20 History carvedilol 25 mg PO Q12H 09/19/20 09/19/20 09/18/20 History clopidogrel 75 mg PO DAILY@08 09/19/20 09/19/20 09/18/20 History ipratropium-albuterol 3 ml INHALATION Q6H PRN 09/19/20 09/19/20 Unknown History pregabalin 150 mg PO BID@,09/19/20 09/19/20 09/18/20 History tiotropium bromide [Spiriva 2 puff INHALATION DAILY@08 09/19/20 09/19/20 09/18/20 History Respimat] tramadol 50 mg PO Q6H PRN 09/19/20 09/19/20 Unknown History Allergies Allergy/AdvReac Type Severity Reaction Status Date / Time cephalexin [From Keflex] Allergy Intermediate rash Verified 05/03/20 12:03 bandaid AdvReac rash Uncoded 12/28/19 16:38 PFSH Acute PFSH: Medical History Aneurysm of infrarenal abdominal aorta Arthritis Bacterial UTI COPD (chronic obstructive pulmonary disease) with chronic bronchitis Patient sees Dr. Poly Barajas in [place], [place] [phone] Diabetes mellitus, type II Essential hypertension Fibromyalgia H/O adenomatous polyp of colon H/O malignant neoplasm of breast Dr. Inocencia Reddy in [facility] is Oncologist. [facility] [phone] Lumbar disc disease Lupus Mixed hyperlipidemia Post-laminectomy syndrome Thoracic aortic aneurysm (TAA) Social History Smoking and tobacco status: former smoker Second hand smoke exposure: No Smoking risk assessment/counseling performed?: No Vitals/I&O/Wt Last Vital Signs Temp 97.9 F 09/19/20 12:55 Pulse 82 09/19/20 12:55 Resp 18 09/19/20 12:55 BP 161/109 09/19/20 12:55 Pulse Ox 99 09/19/20 14:03 Weight last 48 hrs Weight 90.718 kg Physical Exam Narrative: EXAM NARRATIVE: General : laying in bed, drowsy, briefly arousable and following commands HEENT : Grossly unremarkable CVS: NSR CHEST : Non-labored respiration ABD : Soft NT/ND EXT : no edema Urinary Catheter Management^: Naranjo: Cath Placed During This Visit: yes Urinary Catheter Date of Insertion: 09/19/20 Urinary Catheter Time of Insertion: 15:10 Data : 09/19/20 14:06 09/19/20 17:15 A&P Assessment and plan (1) Acute renal failure: Status: Acute Qualifiers: Acute renal failure type: unspecified Qualified Code(s): N17.9 - Acute kidney failure, unspecified (2) Acute hyperkalemia: Status: Acute (3) Essential hypertension: Status: Acute (4) Post-laminectomy syndrome: Status: Acute (5) Encephalopathy: Status: Acute Acute renal failure with Hyperkalemia / Metabolic acidosis - Pre-renal vs AIN vs ATN - Hypotensive shortly after arrival - Nephrology consulted - Creatinine 6.9 -> 7.7 - K 6.3 -> D50/Insulin/Albuterol/CaGlu/kayexelate-> 5.0 - S/p NS bolus on sodium bicarb gtt at 125cc/hr - Naranjo inserted - Monitor on telemetry - Naranjo placed - Renal dosing on meds - Hold home lisinopril and lasix - F/u on UA creatinine/eosinophils, protein-creatinine ratio, total 24hr urine and creatinine, urine lytes - F/u on autoimmune work up - Anti DSDNA, ANCA, NABEEL, anti-streptolysin O, HepC ab , anti-bessy DNA, C3 - 141, C4 - 35 ( Lupus noted in PMH) - BMP in am - Renal US ordered - Avoid hypotension - No indication for emergent HD - d/w family in case. Generalized weakness / Acute encephalopathy - Likely metabolic due to renal failure - No obvious acute infectious process - Fall precautions - PT/OT consult Back pain s/p Laminectomy - Will obtain records from [facility] - May consider repeat imaging of back - No saddle anesthesia, urinary or fecal incontinence - Pain control Congestive heart failure - Follow up on ECHO - Unspecified type- no prior echo - Daily weight, Strict I&O Diabetes Mellitus - Hold metformin - Sliding scale insulin - Check A1c in Am Hypertension - Currently hypotensive - Hold BP meds Hyperlipidemia - Lipid panel in am - If LFT stable resume statin Chronic obstructive pulmonary disease / EULALIO - Non-compliant with home o2 at night - Stable - DuoNeb PRN - o2 as needed GI ppx - Protonix 40 mg PO daily DVT ppx - Heparin 5000 units BID CODE STATUS : FULL CODE Attestations Medical Necessity Statement*: Patient will require over 2 midnight stay in hospital for management if acute renal failure, hyperkalemia, hypotension, poor appetite.. Time Spent in Patient Care: Greater than 35 minutes (>than 50% of time spent in counselling and/or direct pt care on unit). Critical Care Time: Critical Care Time (min): 70 Coding Level of Care Code Acute Cab Worker for g Fwd Diagnoses Acute renal failure N17.9 Acute renal failure type: unspecified Acute hyperkalemia E87.5 Essential hypertension I10 Post-laminectomy syndrome M96.1 Encephalopathy G93.40
[2020-09-19 15:39] LABS: Glucose Urine UA Norm (Normal); Protein Urine 1+ (Negative); Urine Appearance Cloudy (CLEAR); Urine Color Yellow (Yellow); pH Urine 5 (5-7)
[2020-09-19 15:39] LABS: Lactic Sepsis W/Reflex 2.8 mmol/L (0.5-2.2)
[2020-09-19 15:40] LABS: Bilirubin Urine Neg (Negative); Blood Urine 2+ (Negative); Ketones Urine 1+ (Negative); Leukocyte Esterase Urine Trace (Negative); Nitrate Urine Negative (Negative); Urobilinogen Urine Norm (Negative)
[2020-09-19 15:48] LABS: WBC Urine 0-4 /hpf (0-5)
[2020-09-19 15:49] LABS: Amorphous Sediment Urine 1+ /hpf; Bacteria Urine 1+ /hpf; Calcium Oxalate Crystals Urine 0-4 /hpf; Transitional Epi Cells Urine 0-4 /hpf
[2020-09-19 15:50] LABS: Add Urine Culture? Yes
--- NOTE | 2020-09-19 15:56 | CTR_ITS ---
PROCEDURE INFORMATION: Exam: CT Abdomen And Pelvis Without Contrast Exam date and time: 09/19/2020 4:01 PM Age: 70 years old Clinical indication: Abdominal pain; Localized; Lower; Prior surgery; Surgery type: Hyst, gb, kyphoplasty; Additional info: Flank/abdominal pain TECHNIQUE: Imaging protocol: Computed tomography of the abdomen and pelvis without contrast. Sagittal and coronal reformatted images were created and reviewed. Radiation optimization: All CT scans at this facility use at least one of these dose optimization techniques: automated exposure control; mA and/or kV adjustment per patient size (includes targeted exams where dose is matched to clinical indication); or iterative reconstruction. COMPARISON: CT abdomen pelvis wo con [id number] 07/10/2020 8:43 PM RADIATION DOSE METRICS: Total DLP (mGy-cm): 1801.65 FINDINGS: Limitations: Evaluation of solid organs and vasculature is limited without intravenous contrast. This is standard protocol for evaluation of possible urolithiasis. Lungs: Stable mild interstitial fibrotic changes in the visualized lungs. Pleural space: No pleural effusion. Heart: Stable mild enlargement of the visualized portions of the heart. Liver: The liver is unremarkable. Gallbladder and bile ducts: Stable findings consistent with a previous cholecystectomy. Stable dilatation of the biliary ducts, not unexpected in a patient who has had a prior cholecystectomy. Pancreas: The pancreas is unremarkable. No pancreatic ductal dilatation. Spleen: The spleen is unremarkable. Adrenal glands: The right and left adrenal glands are unremarkable. Kidneys and ureters: The right and left kidneys are unremarkable. The right and left ureters are unremarkable. No hydroureteronephrosis. No calcified urolithiasis. Stomach and bowel: Numerous diverticula in the descending colon and sigmoid colon are stable. No evidence for diverticulitis. Wall thickening of small bowel loops in the left abdomen. Appendix: Appendix not definitely visualized. No inflammatory changes in the pericecal region however. Intraperitoneal space: No free intraperitoneal air. No ascites. No loculated fluid collections to suggest an abscess. Vasculature: Moderate atherosclerotic calcification in the visualized coronary arteries. Stable moderate atherosclerotic calcifications in the visualized arteries. Aneurysm of the infrarenal abdominal aorta, measuring up to 3.7 x 3.5 cm (series 2, image 76). Findings are stable. The aneurysm does not involve the iliac arteries. No evidence for aneurysm rupture. Lymph nodes: No lymphadenopathy. Urinary bladder: The bladder is decompressed by a Naranjo catheter. Reproductive: Stable changes consistent with a previous hysterectomy. The ovaries are not definitely visualized, not an expected in a postmenopausal female. This may be due to ovarian atrophy. Alternatively, the patient may have had a previous bilateral oophorectomy. Findings are stable. Bones/joints: Bones are diffusely osteopenic. Mild degenerative changes at both the right and left hips. Moderate degenerative changes of the right and left sacroiliac joints. Multilevel degenerative changes of varying severity in the visualized spine. Multiple old compression deformities of varying severity in the visualized spine are stable. Stable kyphoplasty procedure at L4. Patient has had interval kyphoplasty procedures at T11, T12, and L2. Soft tissues: Interval development of mild body wall edema. CT/CT kidney stone [id number] IMPRESSION: 1. Wall thickening of small bowel loops in the left abdomen. Findings raise suspicion for nonspecific enteritis. 2. Interval development of mild body wall edema. 3. Stable mild interstitial fibrotic changes in the visualized lungs. 4. Stable descending colon and sigmoid colon diverticulosis. No evidence for diverticulitis. 5. Stable small infrarenal abdominal aortic aneurysm. 6. Multiple old compression deformities of varying severity in the visualized spine are stable. Stable kyphoplasty procedure at L4. Patient has had interval kyphoplasty procedures at T11, T12, and L2. 7. Incidental/nonacute findings are listed in the report. Radiation Dose CTDIVOL = (mGy): DLP = 1801.65 (mGy-cm)
[2020-09-19 16:06] LABS: ABG PCO2 37.8 mmHg (35-45); ABG PH Result 7.25 (7.35-7.45); Arterial Blood Gas Hematocrit 34.5 % (37-47); Base Excess ABG -9.9 mmol/L (-2.0-2.0); Blood Gas Allen Test Pos; Blood Gas Operator Identificat glc; Blood Gas Sample Site Radial, left; Blood Gas Sample Type Arterial; Carboxyhemoglobin 0.9 %THgb (0.4-20.1); HCO3 ABG 16.6 mmol/L (22-26); HGB O2 Sat 97.9 % (95-100); Ionized Calcium Level - ABG 1.1 mmol/L (1.1-1.4); Methemoglobin 1.1 % (0.4-1.5); Oxygen Saturation ABG 99.9; Potassium Level - ABG 6.3 mmol/L (3.5-5.0); Total Hemoglobin 11.3 g/dL (12-16)
--- NOTE | 2020-09-19 16:21 | PM.CONSULT ---
Providers/Reason For Consult Consulting Physican/Specialty*: milo hutchison md / telenephrology Reason for Consult*: JUAN MANUEL, hyperkalemia, inc AGMA Requesting Physcian: Dr. Kym Mcnally History of Present Illness History of Present Illness Courtney Barrios is a 70 year old female presented for back pain, weakness, AMS, lethargy. She was found to have JUAN MANUEL, INC AGMA, hyperkalemia. Pt has not been eating for last month since back surgery and of her . She is also not taking her meds well. She c/o weakness, and pain, nausea, itching, tremors. no sob. occ edema Review of Systems General: Reports: 10 or more systems reviewed and unremarkable except in HPI and below Narrative: weak, weight loss, no cp, no sob. + difficulty urinating. constipation, poor appetite, depresion, confusion, weakness. Meds/Allergies Home Medications and Allergies Home Medications Medication Instructions Recorded Confirmed Last Taken Type albuterol sulfate 90 mcg/actuation 2 puff INHALATION Q4H PRN 12/18/19 09/19/20 Unknown History aerosol inhaler esomeprazole magnesium 40 mg 40 mg PO DAILY@07 12/18/19 09/19/20 09/19/20 History capsule,delayed release fluticasone furoate 100 1 inh INHALATION DAILY 12/18/19 05/03/20 Unknown History mcg-vilanterol 25 mcg/dose inhalation powder levothyroxine 50 mcg tablet 50 mcg PO DAILY 12/18/19 05/03/20 Unknown History lisinopril 10 mg tablet 10 mg PO DAILY tab 12/18/19 05/03/20 Unknown History metformin 1,000 mg tablet 1,000 mg PO BID 12/18/19 05/03/20 Unknown History pravastatin 10 mg tablet 10 mg PO DAILY 12/18/19 05/03/20 Unknown History sertraline 100 mg tablet 100 mg PO DAILY 12/18/19 05/03/20 Unknown History acetaminophen [Tylenol Extra 1,000 mg PO PRN PRN 12/28/19 09/19/20 12/28/19 History Strength] furosemide 20 mg PO DAILY 12/28/19 05/03/20 Unknown History carvedilol 25 mg PO Q12H 09/19/20 09/19/20 09/18/20 History clopidogrel 75 mg PO DAILY@08 09/19/20 09/19/20 09/18/20 History ipratropium-albuterol 3 ml INHALATION Q6H PRN 09/19/20 09/19/20 Unknown History pregabalin 150 mg PO BID@08,20 09/19/20 09/19/20 09/18/20 History tiotropium bromide [Spiriva 2 puff INHALATION DAILY@08 09/19/20 09/19/20 09/18/20 History Respimat] tramadol 50 mg PO Q6H PRN 09/19/20 09/19/20 Unknown History Allergies Allergy/AdvReac Type Severity Reaction Status Date / Time cephalexin [From Keflex] Allergy Intermediate rash Verified 05/03/20 12:03 bandaid AdvReac rash Uncoded 12/28/19 16:38 PFSH Acute PFSH: Medical History Aneurysm of infrarenal abdominal aorta Arthritis Bacterial UTI COPD (chronic obstructive pulmonary disease) with chronic bronchitis Patient sees Dr. Poly Barajas in [place], [place] [phone] Diabetes mellitus, type II Essential hypertension Fibromyalgia H/O adenomatous polyp of colon H/O malignant neoplasm of breast Dr. Inocencia Reddy in [facility] is Oncologist. [facility] [phone] Lumbar disc disease Lupus Mixed hyperlipidemia Post-laminectomy syndrome Thoracic aortic aneurysm (TAA) Social History Smoking and tobacco status: former smoker Second hand smoke exposure: No Smoking risk assessment/counseling performed?: No Vitals/I&O/Wt Last Vital Signs Temp 97.9 F 09/19/20 12:55 Pulse 83 09/19/20 16:00 Resp 22 H 09/19/20 15:50 BP 161/109 09/19/20 12:55 Pulse Ox 100 09/19/20 15:50 Weight last 48 hrs Weight 90.718 kg Physical Exam Narrative: EXAM NARRATIVE: obese lady comfortable in bed VSnoted heent - nc/at, eomi neck supple lungs clear heart reg abd soft, nt, nd ext no edema neuro- confused Urinary Catheter Management^: Naranjo: Cath Placed During This Visit: yes Urinary Catheter Date of Insertion: 09/19/20 Urinary Catheter Time of Insertion: 15:10 A&P Additional A&P Information 70 y r old female CAD, obesity, CHF per hx, multiple UTIs, DM, depression/ fibromyalgia, arthritis, Q of SLE, breast ca, infrarenal AAA. Ps last month and she had back surgery- cement procedures done last month. Pt has since been weak, depressed, not eating, and confused. 1. Eval for UTI and infection 2. JUAN MANUEL- likely prerenal vs ATN -check us -check ck -cont ivf -u/a sg 1020, ketones 1+, 2+ blood, 1 + prot- send serologies- given Questionable hx of SLE 3. hyperkalemia-from JUAN MANUEL and lisinopril- hold lisinopril- give bicarb drip -rx medically -if no improvement- will need HD- discussed w/ pt and daughter the risks and benefits of dialysis, they consent if needed 4. hyponatremia- check ur lytes -ivf 5. inc AGMA- AG of 24- from JUAN MANUEL, Q DKA, startvation acidosis- lacate of 2.8- monitro w/ ivf -no metformin 6. JUAN MANUEL and h/o CHF- check an echo 7. htn- repeat bp 8. anemia and JUAN MANUEL- check spep/ upep 9. mild elevated alk phos will follow closely w/ you admit to ICU Consult Attestations Medical Necessity Statement: juan manuel, hyperkalemia, AMS, inc AGMA Time Spent in Patient Care: Greater than 35 minutes Critical Care Time: Critical Care Time (min): 55 Coding Level of Care Code Acute Chairman Emeritus for Genevieve Carter
[2020-09-19] MEDS: calcium gluconate 0.1 gm/mL 10% SDV 10mL 1 GM IVP (16:26)
[2020-09-19] MEDS: sodium bicarbonate 8.4% 1 mEq/mL 50mL Syr 100 MEQ IVP (16:26)
[2020-09-19] MEDS: dextrose 50% syringe 50 mL IVP ×2 (16:26→16:41)
[2020-09-19] MEDS: insulin regular-human 100 units/1 mL 10 UNIT IVP (16:27)
[2020-09-19] MEDS: sodium chloride 0.9% 1,000 ML 999 ML IV ×2 (16:27→20:50)
--- NOTE | 2020-09-19 16:35 | US_ITS ---
WS: [id number] RENAL ULTRASOUND HISTORY: rafael COMPARISON: None. TECHNIQUE: 2-D and color Doppler imaging of the kidney submitted. Right kidney: 11.0 cm x 4.9 cm x 4.8 cm. Normal echogenicity with no hydronephrosis or mass. Left kidney: 12.0 cm x 5.3 cm x 6.2 cm. Normal echogenicity with no hydronephrosis or mass. Aorta: Normal. Urinary Bladder: Nondistended bladder due to Naranjo catheter. US/US renal BI* [id number] IMPRESSION: Normal renal ultrasound.
[2020-09-19 17:14] LABS: Reflex Lactate Order REFLEX LACTIC ORDERD
[2020-09-19 17:58] LABS: Lactate (Lactic Acid level) 3.9 mmol/L (0.5-2.2)
[2020-09-19 17:59] LABS: Alanine Aminotransferase 11 U/L (0-33); Albumin Level 3.4 g/dL (3.5-5.2); Alkaline Phosphatase 135 IU/L (35-105); Aspartate Amino Transferase 11 U/L (0-32); Calcium 8.9 mg/dL (8.5-10.5); Carbon Dioxide 20 mmol/L (22-29); Chloride 92 mmol/L (98-107); Glucose 177 mg/dL (65-115); Osmolality Calculated 316 mOsm/kg (285-295); Sodium 137 mmol/L (136-145); Total Bilirubin 0.2 mg/dL (0.15-1.2); Total Protein 5.4 g/dL (6.6-8.7)
[2020-09-19 18:05] LABS: Complement C3 141 mg/dL (90-180); Creatine Phosphokinase 120 U/L (26-192); Thyroid Stimulating Hormone 1.89 uIU/mL (0.27-4.20)
[2020-09-19 18:08] LABS: Blood Urea Nitrogen 90 mg/dL (8-23)
[2020-09-19 18:20] LABS: Creatine Phosphokinase 105 U/L (26-192); Troponin 5 2HR 53.61 ng/L (0-10); Troponin 5 2HR Delta -4.39 ABS# (0-10)
--- NOTE | 2020-09-19 19:12 | ECG_ITS ---
[facility] Test Date: 2020-09-20 Pat Name: Courtney Barrios Department: Room: ICU12 Gender: Female Buffer Copper: : 1950 Requested By: Sunil Ruelas Order Number: [id number] Burns MD: Eliecer Luo M.D. Measurements Intervals [place] Rate: 91 P: 37 AK: 175 QRS: 43 QRSD: 89 T: 44 QT: 365 QTc: 449 Interpretive Statements SINUS RHYTHM Compared to ECG 09/19/2020 16:26:37 No significant changes Electronically Signed On 09-20-2020 9:51:06 AUTO COLLISION REPAIR INSTRUCTOR by Eliecer Luo M.D. [email or web address]
[2020-09-19 19:27] LABS: Hepatitis C Virus Antibody Non-Reactive (Nonreactive)
[2020-09-19 21:55] LABS: Calcium 8.6 mg/dL (8.5-10.5); Carbon Dioxide 20 mmol/L (22-29); Chloride 96 mmol/L (98-107); Glucose 88 mg/dL (65-115); Osmolality Calculated 312 mOsm/kg (285-295); Sodium 137 mmol/L (136-145)
[2020-09-19 22:02] LABS: Anion Gap 26.5 (5-19); Potassium 5.5 mmol/L (3.5-5.1)
[2020-09-19 22:09] LABS: Blood Urea Nitrogen 92 mg/dL (8-23)
[2020-09-19 22:13] LABS: Troponin 5 6HR 50.03 ng/L (0-10)
--- NOTE | 2020-09-19 23:02 | PC.NURSE ---
Patient arrived to ICU at 2242 from ED. Patient is alert and orientated. Patient wears glasses and dentures. Patient does have fine crackles noted in all lobes, but otherwise clear and good air movement. Bowel sounds active in all 4 quadrants. Trace edema noted to bilateral extremities. Dorsal Pedal pulses palpable 3+. Call light within reach. Continue care.
[2020-09-19] MEDS: heparin 5,000 unit/mL INJ 1 mL 5000 UNIT SUBCUT (23:23)
[2020-09-19] MEDS: carvedilol 25 mg Tablet PO (23:23)
--- NOTE | 2020-09-19 23:45 | PC.NURSE ---
Dr. Simons called and spoke with nurse, he wants morning labs drawn plus a lactic acid and called with results. Placed orders to discontinue protonix, and discontinued NS, only bicarb running at this time.
[2020-09-20] VITALS (46 sets, daily range): BP systolic 66–187; BP diastolic 34–108; PULSE 71–93; RESP 14–28; TEMP 36.3–37.2; O2SAT 89–96
--- NOTE | 2020-09-20 | USCV_ITS ---
Courtney Barrios Age: 70 Gender: F : 1950 Exam Date: 09/20/2020 06:07 Ordering Phys: Christiano Simons MD Technologist: Oracio Hough [place] [facility] [place]: CHF/HTN BP: 94 / 52 HR: 78 Rhythm: Sinus Technical Quality: Adequate MEASUREMENTS (Male / Female) Normal Values 2D ECHO LV Diastolic Diameter PLAX 3.4 cm 4.2 - 5.9 / 3.9 - 5.3 cm LV Systolic Diameter PLAX 1.8 cm IVS Diastolic Thickness 1.7 cm 0.6 - 1.0 / 0.6 - 0.9 cm IVS Systolic Thickness 1.6 cm LVPW Diastolic Thickness 0.9 cm 0.6 - 1.0 / 0.6 - 0.9 cm LVPW Systolic Thickness 1.1 cm LVOT Diameter 2.0 cm LV Ejection Fraction 2D Teich 75.2 % LV Ejection Fraction MOD 2C 61.1 % LV Ejection Fraction 2C AL 61.4 % LA Diameter 3.4 cm LA Width 4.2 cm LA Height 4.3 cm RA Width 3.0 cm RA Height 4.3 cm Aorta at Sinotubular Diameter 2.6 cm M-MODE LV Diastolic Diameter MM 4.2 cm 4.2 - 5.9 / 3.9 - 5.3 cm LV Systolic Diameter MM 2.4 cm LV Ejection Fraction MM Teich 75.1 % IVS Diastolic Thickness MM 1.3 cm 0.6 - 1.0 / 0.6 - 0.9 cm IVS Systolic Thickness MM 2.2 cm LVPW Diastolic Thickness MM 1.7 cm 0.6 - 1.0 / 0.6 - 0.9 cm LVPW Systolic Thickness MM 1.4 cm RV Diastolic Diameter MM 1.5 cm Aortic Annulus Diameter 3.4 cm LA Ao Ratio MM 1.1 MV E Point Septal Separation 0.3 cm DOPPLER AV Peak Velocity 169.0 cm/s LVOT Peak Velocity 114.0 cm/s AV Area Cont Eq vti 1.9 cm squared AV Area Cont Eq pk 2.1 cm squared MV Area PHT 3.6 cm squared Mitral E to A Ratio 1.0 MV E' Velocity 54.5 cm/s Mitral E to MV E' Ratio 11.6 Mitral E to LV E' Lateral Ratio 9.1 Mitral E to LV E' Septal Ratio 16.0 TR Peak Velocity 329.0 cm/s TR Peak Gradient 43.3 mmHg TV Peak E Velocity 87.3 cm/s Right Atrial Pressure 8.0 mmHg Pulmonary Artery Systolic Pressu 51.3 mmHg FINDINGS Left Ventricle Normal left ventricular size and systolic function, EF 70 %. No regional wall motion abnormalities. Right Ventricle Echodense transverse band in the apical region of the ventricle. Thickening of the right ventricular free wall Right Atrium The right atrium is normal in size. Left Atrium The left atrium is normal in size. Mitral Valve Mild mitral valve regurgitation. Aortic Valve Thickened aortic valve. Tricuspid Valve No gross abnormalities noted.mild tricuspid valve regurgitation. Pulmonic Valve Structurally normal pulmonic valve without significant stenosis. There is no pulmonic regurgitation. Pericardium Normal pericardium without effusion. Aorta Normal aortic annulus size. CONCLUSIONS Normal left ventricular size and systolic function, EF 70 %. No regional wall motion abnormalities. Normal right ventricular size and ejection fraction. Some features of right ventricular hypertrophy. Echodense structure in the right ventricle suggestive of moderator band Mild mitral and tricuspid regurgitation Thickened aortic valve. Estimated pulmonary artery peak systolic pressure of 51 mmHg There is no pericardial effusion. There are no intracardiac masses. No previous study is available for comparison. Dr Adela Guerrero MD FACC (Electronically Signed) Final Date: 20 September 2020 20:05 S
[2020-09-20] MEDS: ipratropium-albuterol 3 mL Neb INHALATION (03:13)
[2020-09-20] MEDS: levothyroxine 50 mcg Tablet PO (06:15)
[2020-09-20 06:20] LABS: Basophils % 0.6 %; Eosinophils # 0.1 10^3/uL (0.0-0.8); Eosinophils % 2.5 %; Hematocrit 30.3 % (37.0-47.0); Hemoglobin 9.4 g/dL (11.5-15.3); Lymphocytes # 1.9 10^3/uL (0.8-4.8); Lymphocytes % 35.7 %; Mean Corpuscular Hemoglobin 25.3 pg (28.0-34.0); Mean Corpuscular Volume 81.7 fL (81-99); Mean Platelet Volume 10.9 fL (7.4-10.4); Monocytes # 0.6 10^3/uL (0.2-0.9); Monocytes % 10.8 %; Neutrophils % 50.2 %; Nucleated Red Blood Cells % 0 %; Platelet Count 223 10^3/cmm (130-400); Red Blood Count 3.71 10^6/uL (4.1-5.3); Red Cell Distribution Width 15.9 % (12.1-15.1); White Blood Count 5.2 10^3/uL (4.0-10.0)
--- NOTE | 2020-09-20 06:22 | PC.NURSE ---
Shift Summary: Uneventful shift. Patient remains resting in room. No s/s of distress or pain. Continue care.
[2020-09-20 06:36] LABS: Lactic Sepsis W/Reflex 0.8 mmol/L (0.5-2.2)
[2020-09-20 06:38] LABS: Anion Gap 22.8 (5-19); Calcium 8.1 mg/dL (8.5-10.5); Carbon Dioxide 23 mmol/L (22-29); Chloride 97 mmol/L (98-107); Glucose 98 mg/dL (65-115); Osmolality Calculated 311 mOsm/kg (285-295); Potassium 4.8 mmol/L (3.5-5.1); Sodium 138 mmol/L (136-145)
[2020-09-20 06:41] LABS: Phosphorus 7.4 mg/dL (2.5-4.5)
[2020-09-20 07:14] LABS: Blood Urea Nitrogen 83 mg/dL (8-23)
[2020-09-20 07:22] LABS: Calcium 7.9 mg/dL (8.5-10.5); Parathyroid Hormone 105.1 pg/mL (15-65)
--- NOTE | 2020-09-20 07:28 | PC.NURSE ---
rounded with dr griffin. plan is to continue same fluids and reevaulate with labs this afternoon.
--- NOTE | 2020-09-20 07:56 | PM.PN ---
Subjective Subjective: Interval history: feels better. not eating. weak denies sob. + itching, cramps/ tremors Medications: Reviewed: Yes Medication Review Details: Current Medications Acetaminophen (Acetaminophen 325 Mg Tablet) 650 mg PO Q6H PRN PRN Reason: MILD PAIN Albuterol Sulfate (Albuterol 8 Gm Mdi) 2 puff INHALATION Q4H PRN PRN Reason: Shortness Of Breath Albuterol/Ipratropium (Ipratropium-Albuterol 3 Ml Neb) 3 ml INHALATION Q6H PRN PRN Reason: Shortness Of Breath Last Admin: 09/20/20 03:13 Dose: 3 ml Documented by: Carvedilol (Carvedilol 25 Mg Tablet) 25 mg PO Q12H [facility] Last Admin: 09/19/20 23:23 Dose: 25 mg Documented by: Clopidogrel Bisulfate (Clopidogrel 75 Mg Tablet) 75 mg PO DAILY@08 [facility] Heparin Sodium (Beef Lung) (Heparin 5,000 Unit/Ml Inj 1 Ml) 5,000 unit SUBCUT Q12H [facility] Last Admin: 09/19/20 23:23 Dose: 5,000 unit Documented by: Sodium Bicarbonate 75 meq/ (Sodium Chloride) 1,000 mls @ 125 mls/hr IV .Q8H [facility] Last Admin: 09/20/20 04:33 Dose: 125 mls/hr Documented by: Levothyroxine Sodium (Levothyroxine 50 Mcg Tablet) 50 mcg PO DAILY@07 [facility] Last Admin: 09/20/20 06:15 Dose: 50 mcg Documented by: Morphine Sulfate (Morphine 4 Mg/Ml Sdv 1 Ml) 4 mg IVP Q4H PRN PRN Reason: SEVERE PAIN Ondansetron HCl (Ondansetron 2 Mg/Ml Sdv 2 Ml) 4 mg IVP Q6H PRN PRN Reason: NAUSEA AND VOMITING Tiotropium [place] (Tiotropium 18 Mcg Mdi) 1 mcg INHALATION DAILY@08 [facility] Vitals/I&O/Wt Last Vital Signs Temp 97.4 F L 09/20/20 04:00 Pulse 77 09/20/20 06:00 Resp 16 09/20/20 06:00 BP 94/52 09/20/20 06:00 Pulse Ox 90 09/20/20 06:00 09/19/20 09/20/20 09/20/20 22:59 06:59 14:59 Intake Total 1999 1000 / 3000 Output Total 400 / 400 Balance 1999 600 / 2600 Weight last 48 hrs Weight 106.141 kg Weight 90.718 kg Physical Exam Narrative: EXAM NARRATIVE: obese lady comfortable in bed VSnoted- BP low heent - nc/at, eomi neck supple lungs clear heart reg abd soft, nt, nd ext trace edema edema neuro- more awake, less confused Urinary Catheter Management^: Naranjo: Cath Placed During This Visit: yes Reason for Continuing Indwelling Catheter: Accurate Measurement of Urinary Output in Critically Ill Patients Urinary Catheter Date of Insertion: 09/19/20 Urinary Catheter Time of Insertion: 15:10 Data : 09/20/20 06:05 09/20/20 06:05 A&P Additional A&P Information 70 y r old female CAD, obesity, CHF per hx, multiple UTIs, DM, depression/ fibromyalgia, arthritis, Q of SLE, breast ca, infrarenal AAA. Ps last month and she had back surgery- cement procedures done last month. Pt has since been weak, depressed, not eating, and confused. 1. Eval for infection per medicine Q enteritis on CT scan 2. JUAN MANUEL- likely ATN - she was depressed, not eating and on diuretics and LIBRA-i at home. her bp remains low -normal renal us -normal ck -cont ivf- does not need bicarb -lactic acid improved -u/a sg 1020, ketones 1+, 2+ blood, 1 + prot- send serologies- given Questionable hx of SLE hep c neg, geni anti- dna pending -normal complements -monitor for dialysis needs- daughter and pt consent if needed 3. hyperkalemia-from JUAN MANUEL and lisinopril- hold lisinopril- -k improved w/ medical management 4. hyponatremia- improved off diuretics and w/ ivf 5. inc AGMA- AG of 24- from JUAN MANUEL, Q DKA, startvation acidosis- lacate improved- slowly improving w/ ivf -no metformin 6. JUAN MANUEL and h/o CHF- check an echo 7. htn- BP low- hold anti- htn meds 8. anemia and JUAN MANUEL- check spep/ upep 9. mild elevated alk phos 10. phos elevated- sevelamer w/ meals pth 105- repeat in 4 weeks will follow closely w/ you admit to ICU Attestations Medical Necessity Statement*: juan manuel Time Spent in Patient Care: Greater than 35 minutes Coding Level of Care Code Acute Transit Proof Machine Operator for Genevieve Carter
[2020-09-20] MEDS: carvedilol 12.5 mg Tablet PO ×2 (08:34→20:25)
[2020-09-20] MEDS: clopidogrel 75 mg Tablet PO (08:34)
--- NOTE | 2020-09-20 08:47 | PC.CHAP ---
Pastoral Care Encounter/Spiritual Assessment Type of Contact [] Declined radiologic technician visit [] Patient/Family/Request visit [] Outpatient visit [] Follow-up visit [] Physician referral [] Code/Alert [] Routine visit [] Staff referral [] Actively dying [] Patient sleeping [] Family support [] [] Out of room [] Palliative care [] [] Receiving care in room [] Pre-surgical visit [] Trauma [] Long length of stay [x] ICU visit [] Other: Relational/Emotional Strength [] Patient feels connected with others/family/visitors/staff [] Distress [] Loneliness/isolation [] Abandonment Spirituality of Patient [] Person of Agueda [] Attends Congregation of their [place] [] Believes in Prayer [] Reads Bible or Yarsani materials [] There are Spiritual issues to be addressed Lard Tub Washer Interventions [x] Prayer [] Active listening [] Non-anxious presence [] Spiritual/emotional support [] Crisis/trauma care [] Spiritual counseling [] Bereavement support [] Provided bereavement packet [] Provided Bible/devotional materials [] Provided toy/stuffed animal, coloring book to patient or family member [] Provided Communion [] Anointing/False Pass [] Salvation [x] Completed spiritual assessment [] Other: Impact on Illness or Injury [] Angry [] Fearful [] Anxious [] Often cries [] Exhaustion [] Unable to work [] Unable to attend mormonism [] Unable to walk/stand [] Unable to read [] Unable to drive [] Unable to eat/drink [] Unable to sleep [] Unable to be with family [] Patient intubated [] Other: Summary Time spent with patient
[2020-09-20] MEDS: heparin 5,000 unit/mL INJ 1 mL 5000 UNIT SUBCUT ×2 (11:37→22:20)
[2020-09-20 15:05] LABS: Anion Gap 19.6 (5-19); Blood Urea Nitrogen 79 mg/dL (8-23); Calcium 8.4 mg/dL (8.5-10.5); Carbon Dioxide 25 mmol/L (22-29); Chloride 98 mmol/L (98-107); Glucose 106 mg/dL (65-115); Osmolality Calculated 310 mOsm/kg (285-295); Potassium 4.6 mmol/L (3.5-5.1); Sodium 138 mmol/L (136-145)
[2020-09-20] MEDS: sodium chloride 0.9% 1,000 ML 75 ML IV (16:12)
--- NOTE | 2020-09-20 18:00 | PM.PN ---
Subjective Subjective: Interval history: 70 year old with past medical history of hypertension, dyslipidemia, hypothyroidism, congestive heart failure unspecified type, chronic obstructive pulmonary disease, obstructive sleep apnea ( non-compliant with noctural o2 ), diabetes mellitus, and recent back surgery at [facility] ( discharged on 08/24) who presented to ER today with 1 week history of progressive weakness with fall earlier today. Per daughter at bedside who provided history stated patient has been declining in this past week. She has been c/o difficulty ambulating due to bilateral LE weakness. This was associated with increasingly poor appetite and intermittent episode of altered mental status. States at times she did not recongize family members however shortly after would return to baseline. Earlier today family planned to take her out to [place] however was requring multiple persons to assist in ambulating and while attempted to get in to her truck she sustained a fall. No LOC. No head trauma or seizure like activity. No reported fever or chills. Noted nausea and two episodes of non-bloody emesis on 09/18. Denied any complaints of chest pain, dyspnea, abdominal pain, diarrhea or constipation. She was recently seen for post op follow up 2 weeks prior at [facility] during which time she was noted to have UTI. Had denied any dysuria, frequency or urgency. Completed course of ciprofloxacin on 09/12 Laboratory workup on arrival today showed a WBC of 11.3, hemoglobin of 11.6, hematocrit 38.3 and a platelet count of 340. sodium 134, potassium 7.6, chloride of 92, bicarb of 15, BUN of 91 and a creatinine of 6.9. LFT were WNL. ABG showd a PH of 7.25, Pco2 of 37.8, HCO3 of 16.6 and K of 6.3. Lactic acid of 2.8. TroponinT baseline of 58, 53.61 at 120 min ( delta negative 4.39), ProBNP of 6866. UA showed 1+ ketones, 2+ blood neg, trace leuk/nitrates. CPK 105. Rapid COVID-19 negative. Patient was given 1L bolus of NS, regular insulin 10 units IV x 1, D50 1 amp, calcium gluconatge 1g iv x 1, Kayexelate 15g PO x 1 and high dose albuterol nebulized. Repeat lab work up had showed potassium improved to 5.0, creatinien increased to 7.7 and lactic acid increased to 3.9. Nephrology was then consulted and patient was started on sodium bicarb 75meq/NS at 125cchr. Inital vitals on arrival were BP of 161/109 however this decreased to 74/48. Temp of 97.9, HR of 82, RR of 18-22, 96 percent o2 on RA. imaging studies included chest x-ray which did not show any acute abnormality, head CT which showed mild atrophy and chronic ischemic disease. CT abdomen pelvis showed wall thickening of the small bowel loops in the left abdomen suspicious for nonspecific enteritis, stable diverticulosis, stable infrarenal abdominal aortic aneurysm and multiple old compression deformities of the vertebrae with appearance of prior kyphoplasty. Patient was admitted to ICU. Noted to have increasing urine output . Verified with patients family who noted prior history of lupus. Was not on any chronic immunosupressives. Renal function improved to creatinine of 5.2. Hyperkalemia resolved. renal ultrasound was performed which did not show any acute abnormality. Both kidneys appear structurally normal. Echocardiogram was performed which showed an EF of 70% without any evidence of regional wall motion abnormality. 09/20 Patient remained confused overnight. Increasing urine output. Now hypertensive. No fever, chills, nausea, vomiting or diarrhea. Medications: Reviewed: Yes Medication Review Details: Current Medications Acetaminophen (Acetaminophen 325 Mg Tablet) 650 mg PO Q6H PRN PRN Reason: MILD PAIN Albuterol Sulfate (Albuterol 8 Gm Mdi) 2 puff INHALATION Q4H PRN PRN Reason: Shortness Of Breath Albuterol/Ipratropium (Ipratropium-Albuterol 3 Ml Neb) 3 ml INHALATION Q6H PRN PRN Reason: Shortness Of Breath Last Admin: 09/20/20 03:13 Dose: 3 ml Documented by: Carvedilol (Carvedilol 25 Mg Tablet) 25 mg PO Q12H [facility] Last Admin: 09/19/20 23:23 Dose: 25 mg Documented by: Clopidogrel Bisulfate (Clopidogrel 75 Mg Tablet) 75 mg PO DAILY@08 [facility] Heparin Sodium (Beef Lung) (Heparin 5,000 Unit/Ml Inj 1 Ml) 5,000 unit SUBCUT Q12H [facility] Last Admin: 09/19/20 23:23 Dose: 5,000 unit Documented by: Sodium Bicarbonate 75 meq/ (Sodium Chloride) 1,000 mls @ 125 mls/hr IV .Q8H [facility] Last Admin: 09/20/20 04:33 Dose: 125 mls/hr Documented by: Levothyroxine Sodium (Levothyroxine 50 Mcg Tablet) 50 mcg PO DAILY@07 [facility] Last Admin: 09/20/20 06:15 Dose: 50 mcg Documented by: Morphine Sulfate (Morphine 4 Mg/Ml Sdv 1 Ml) 4 mg IVP Q4H PRN PRN Reason: SEVERE PAIN Ondansetron HCl (Ondansetron 2 Mg/Ml Sdv 2 Ml) 4 mg IVP Q6H PRN PRN Reason: NAUSEA AND VOMITING Tiotropium [place] (Tiotropium 18 Mcg Mdi) 1 mcg INHALATION DAILY@08 [facility] Vitals/I&O/Wt Last Vital Signs Temp 97.7 F 09/20/20 14:00 Pulse 85 09/20/20 20:30 Resp 22 H 09/20/20 20:30 BP 171/105 09/20/20 20:30 Pulse Ox 93 09/20/20 20:30 09/20/20 09/20/20 09/20/20 06:59 14:59 22:59 Intake Total 1000 / 3000 334 / 334 Output Total 400 / 400 1300 / 1300 Balance 600 / 2600 -966 / -966 Weight last 48 hrs Weight 106.141 kg Weight 90.718 kg Physical Exam Narrative: EXAM NARRATIVE: General : laying in bed, drowsy, briefly arousable and following commands HEENT : Grossly unremarkable CVS: NSR CHEST : Non-labored respiration ABD : Soft NT/ND EXT : no edema Urinary Catheter Management^: Naranjo: Cath Placed During This Visit: yes Reason for Continuing Indwelling Catheter: Accurate Measurement of Urinary Output in Critically Ill Patients Urinary Catheter Date of Insertion: 09/19/20 Urinary Catheter Time of Insertion: 15:10 Data : 09/20/20 06:05 09/20/20 14:30 A&P Assessment and plan (1) Acute renal failure: Status: Acute Qualifiers: Acute renal failure type: unspecified Qualified Code(s): N17.9 - Acute kidney failure, unspecified (2) Acute hyperkalemia: Status: Acute (3) Essential hypertension: Status: Acute (4) Post-laminectomy syndrome: Status: Acute (5) Encephalopathy: Status: Acute Acute renal failure with Hyperkalemia / AG Metabolic acidosis - Pre-renal vs AIN vs ATN - Hypotensive shortly after arrival - Nephrology consulted - Creatinine 6.9 -> 7.7 - 5.2 - K 6.3 -> D50/Insulin/Albuterol/CaGlu/kayexelate-> 5.0 on admission - Renal dosing on meds - Hold home lisinopril and lasix - F/u on UA creatinine/eosinophils, protein-creatinine ratio, total 24hr urine and creatinine, urine lytes - F/u on autoimmune work up - Anti DSDNA, ANCA, NABEEL, anti-streptolysin O, anti-bessy DNA - pending - C3 - 141, C4 - 35, hebC ab negative - Renal US- Within normal limits - Avoid hypotension - on NS at 75 cc/hr - Follow up on 24 hr urine collection - Repeat BMP in AM Generalized weakness / Acute encephalopathy - Likely metabolic due to renal failure - No obvious acute infectious process - Fall precautions - Bedside swallow - Will consult ST in am - PT/OT consult Possible enteritis / UTI ( hx of ESBL Ecoli in 04/2020 ) - CT abd/pelvis showed thickened small bowel loops - Remains afebrile, monitor for diarrhea - Pro-calcitonin in am - Urine culture - pending - Emperically start on Primaxin 500mg IV q6hr - Obtain Blood culture x 2 in Am Back pain s/p laminectomy - Will obtain records from [facility] - May consider repeat imaging of back - No saddle anesthesia, urinary or fecal incontinence - Pain control Congestive heart failure - ECHO - pEF - Daily weight, Strict I&O Diabetes Mellitus - Hold metformin - Sliding scale insulin - Advance to renal/diabetic diet Hypothyrodism - Levothyroxine 50 mcg po daily Hypertension - Coreg 12.5 mg PO BID started - Will increase to 25 mg PO BID if persistently hypertensive - Will continue to hold lisinopril - May consider adding additional anti-hypertensive Hyperlipidemia - Lipid panel in am - If LFT stable resume statin Chronic obstructive pulmonary disease / EULALIO - Non-compliant with home o2 at night - Stable - DuoNeb PRN - o2 as needed GI ppx - Protonix 40 mg PO daily DVT ppx - Heparin 5000 units BID CODE STATUS : FULL CODE Attestations Medical Necessity Statement*: Patient will require further hospitalization for ongoing management of acute renal failure, hyperkalemia, hypotension, poor appetite.. Time Spent in Patient Care: Greater than 35 minutes (>than 50% of time spent in counselling and/or direct pt care on unit). Critical Care Time: Critical Care Time (min): 45 Coding Level of Care Code Acute Endless Bed Drum Sander for Chg Fwd Diagnoses Acute renal failure N17.9 Acute renal failure type: unspecified Acute hyperkalemia E87.5 Essential hypertension I10 Post-laminectomy syndrome M96.1 Encephalopathy G93.40
--- NOTE | 2020-09-20 21:57 | PC.NURSE ---
assessment AO x4, follows commands, answers questions appropriately, turns self in bed, supine 45 degrees call light within reach
[2020-09-20] MEDS: acetaminophen 325 mg Tablet 650 MG PO (22:24)
[2020-09-21] VITALS (31 sets, daily range): BP systolic 120–184; BP diastolic 60–112; PULSE 70–85; RESP 12–25; O2SAT 89–100
--- NOTE | 2020-09-21 00:09 | PC.PHAR ---
Primaxin dosage is djusted from 500mg IVPB every 6 hours to 250mg IVPB every 12 hours on basis of creatinine clearance of 11.35 and weight >70kg (actual wt. 106.141 kg)
[2020-09-21 01:28] LABS: Total Volume Urine 2350 ml; Total Volume, Urine 2350 mL
[2020-09-21 01:38] LABS: Urine Creatinine 82 mg/dL (28-217)
[2020-09-21 01:43] LABS: Creatinine Urine, Random 76 mg/dL (28-217); Microalbum Creatinine Ratio Ur 171 mg/dL (0-20); Microalbumin Random Urine 13 ug/dL (0-20)
[2020-09-21 01:44] LABS: Potassium, Radom Urine 19 mmol/L; Urine Protein Random 40 mg/dL; Urine Random Chloride 45 mmol/L; Urine Random Sodium 70 mmol/L
[2020-09-21 01:57] LABS: Total Protein 24 Hour Urine 947.1 mg/24HR (0-150); Urine Total Protein 24 Hour 40.3 mg/dL (0-150)
[2020-09-21 02:09] LABS: Eosinophil Urine No Eosinophils Seen
[2020-09-21] MEDS: sodium chloride 0.9% 1,000 ML 75 ML IV (05:05)
[2020-09-21] MEDS: morphine 4 mg/mL SDV 1 mL IVP ×2 (05:11→11:32)
[2020-09-21] MEDS: levothyroxine 50 mcg Tablet PO (06:02)
--- NOTE | 2020-09-21 06:14 | PC.NURSE ---
Addendum entered by Diego Erickson RN 09/21/20 06:37: Dr. Green informed this nurse he would put in orders for HTN today Original Note: Dr. Green called [facility] tele nephrology, informed this nurse of wishes for pt to get out of bed during the day and if the patient eats the IV fluids could be DC
--- NOTE | 2020-09-21 06:38 | P.PN_ITS ---
Subjective Subjective: Interval history: more awake. eating a little. c/o back pain. o2 dep since morphine. no n/v/f/c/he/d Medications: Reviewed: Yes Medication Review Details: Current Medications Acetaminophen (Acetaminophen 325 Mg Tablet) 650 mg PO Q6H PRN PRN Reason: MILD PAIN Last Admin: 09/20/20 22:24 Dose: 650 mg Documented by: Albuterol Sulfate (Albuterol 8 Gm Mdi) 2 puff INHALATION Q4H PRN PRN Reason: Shortness Of Breath Albuterol/Ipratropium (Ipratropium-Albuterol 3 Ml Neb) 3 ml INHALATION Q6H PRN PRN Reason: Shortness Of Breath Last Admin: 09/20/20 03:13 Dose: 3 ml Documented by: Carvedilol (Carvedilol 12.5 Mg Tablet) 12.5 mg PO Q12H [facility] Last Admin: 09/20/20 20:25 Dose: 12.5 mg Documented by: Clopidogrel Bisulfate (Clopidogrel 75 Mg Tablet) 75 mg PO DAILY@08 [facility] Last Admin: 09/20/20 08:34 Dose: 75 mg Documented by: Dextrose (Dextrose 50% Syringe 50 Ml) 25 ml IVP ONCE PRN; Protocol PRN Reason: hypoglycemia protocol Dextrose (Dextrose 50% Syringe 50 Ml) 50 ml IVP PRN PRN; Protocol PRN Reason: hypoglycemia protocol Glucagon (Glucagon 1 Mg/Ml Inj 1 Ml) 1 mg IM ONCE PRN; Protocol PRN Reason: Adult Acute Hypoglycemia Prot. Heparin Sodium (Beef Lung) (Heparin 5,000 Unit/Ml Inj 1 Ml) 5,000 unit SUBCUT Q12H [facility] Last Admin: 09/20/20 22:20 Dose: 5,000 unit Documented by: Sodium Chloride (Sodium Chloride 0.9%) 1,000 mls @ 75 mls/hr IV .[id number] [facility] Last Admin: 09/21/20 05:05 Dose: 75 mls/hr Documented by: Dextrose (D5w) 500 mls @ 100 mls/hr IV ONCE PRN; Protocol PRN Reason: Adult Acute Hypoglycemia Prot Imipenem/Cilastatin Sodium 250 (mg/ Sodium Chloride) 100 mls @ 200 mls/hr IV Q12H [facility] Insulin Aspart (Insulin Aspart 100 Unit/1 Ml) 0 unit SUBCUT WM&BEDTIME [facility]; Protocol Levothyroxine Sodium (Levothyroxine 50 Mcg Tablet) 50 mcg PO DAILY@07 [facility] Last Admin: 09/21/20 06:02 Dose: 50 mcg Documented by: Morphine Sulfate (Morphine 4 Mg/Ml Sdv 1 Ml) 4 mg IVP Q4H PRN PRN Reason: SEVERE PAIN Last Admin: 09/21/20 05:11 Dose: 4 mg Documented by: Ondansetron HCl (Ondansetron 2 Mg/Ml Sdv 2 Ml) 4 mg IVP Q6H PRN PRN Reason: NAUSEA AND VOMITING Tiotropium [place] (Tiotropium 18 Mcg Mdi) 1 mcg INHALATION DAILY@08 [facility] Last Admin: 09/20/20 10:02 Dose: 1 inhalation Documented by: Vitals/I&O/Wt Last Vital Signs Temp 97.7 F 09/20/20 14:00 Pulse 76 09/21/20 05:46 Resp 13 09/21/20 05:46 BP 164/92 09/21/20 05:46 Pulse Ox 90 09/21/20 05:46 09/20/20 09/20/20 09/21/20 14:59 22:59 06:59 Intake Total 334 / 334 966.25 / 1300.25 Output Total 1300 / 1300 400 / 1700 Balance -966 / -966 566.25 / -399.75 Weight last 48 hrs Weight 102.965 kg Weight 106.141 kg Weight 90.718 kg Physical Exam Narrative: EXAM NARRATIVE: obese lady comfortable in bed VS noted- BP now elevated heent - nc/at, eomi neck supple lungs clear heart reg abd soft, nt, nd ext -no edema neuro- more awake, less confused Urinary Catheter Management^: Naranjo: Cath Placed During This Visit: yes Reason for Continuing Indwelling Catheter: Accurate Measurement of Urinary Output in Critically Ill Patients Urinary Catheter Date of Insertion: 09/19/20 Urinary Catheter Time of Insertion: 15:10 Data : 09/20/20 06:05 09/20/20 14:30 A&P Additional A&P Information 70 y r old female CAD, obesity, CHF per hx, multiple UTIs, DM, depression/ fibromyalgia, arthritis, Q of SLE, breast ca, infrarenal AAA. Ps last month and she had back surgery- cement procedures done last month. Pt has since been weak, depressed, not eating, and confused. 1. Eval for infection per medicine Q enteritis on CT scan -f/u cx -on primaxin 1b. AMS- improving 2. JUAN MANUEL- likely ATN - she was depressed, not eating and on diuretics and LIBRA-i at home. her bp remains low -normal renal us -normal ck -d/c ivf- and monitor -lactic acid improved -u/a sg 1020, ketones 1+, 2+ blood, 1 + prot- send serologies- given Questionable hx of SLE hep c neg, geni anti- dna pending -normal complements -no need for dialysis 3. hyperkalemia-from JUAN MANUEL and lisinopril- hold lisinopril- -k improved w/ medical management 4. hyponatremia- improved off diuretics and w/ ivf 5. inc AGMA- AG of 24- from JUAN MANUEL, Q DKA, startvation acidosis- lacate improved- AG now 15 -no metformin 6. JUAN MANUEL and h/o CHF- echo- EF 70%, RVH, Q of moderator band PA systolic pressure 51 -d/c ivf 7. htn- BP high- avoid libra-i/ ARB w/ JUAN MANUEL -add norvasc 5 mgm daily -d/c ivf 8. anemia and JUAN MANUEL- await spep/ upep 9. mild elevated alk phos 10. phos elevated- sevelamer w/ meals -hopefully should improve as renal fxn improved pth 105- repeat in 4 weeks 11. back pain- avoid NSAID- would get PT and try to ambulate will follow w/ you Attestations Medical Necessity Statement*: improving juan manuel. Time Spent in Patient Care: Greater than 35 minutes Coding Level of Care Code Acute Cylinder Machine Operator for Genevieve Carter
[2020-09-21 07:55] LABS: Glucose Point of Care 127 mg/dL (70-110)
[2020-09-21 08:18] LABS: Basophils % 0.4 %; Eosinophils # 0.2 10^3/uL (0.0-0.8); Eosinophils % 5.3 %; Hemoglobin 9.9 g/dL (11.5-15.3); Lymphocytes # 1.6 10^3/uL (0.8-4.8); Mean Corpuscular HGB Conc 30.9 g/dL (30.0-36.0); Mean Corpuscular Hemoglobin 25.5 pg (28.0-34.0); Mean Corpuscular Volume 82.5 fL (81-99); Mean Platelet Volume 10.7 fL (7.4-10.4); Monocytes # 0.5 10^3/uL (0.2-0.9); Neutrophils # 2.21 10^3/uL (1.8-7.7); Neutrophils % 48.9 %; Nucleated Red Blood Cells % 0 %; Platelet Count 184 10^3/cmm (130-400); Red Blood Count 3.88 10^6/uL (4.1-5.3); Red Cell Distribution Width 15.8 % (12.1-15.1); White Blood Count 4.5 10^3/uL (4.0-10.0)
[2020-09-21] MEDS: ipratropium-albuterol 3 mL Neb INHALATION (08:37)
[2020-09-21 08:54] LABS: Procalcitonin 0.25 ng/mL (0-0.5)
[2020-09-21 09:05] LABS: Alanine Aminotransferase 8 U/L (0-33); Alkaline Phosphatase 116 IU/L (35-105); Anion Gap 14.9 (5-19); Aspartate Amino Transferase 15 U/L (0-32); Blood Urea Nitrogen 55 mg/dL (8-23); Calcium 8.6 mg/dL (8.5-10.5); Carbon Dioxide 27 mmol/L (22-29); Chloride 103 mmol/L (98-107); Globulin 2.2 g/dL (1.3-4.6); Glucose 121 mg/dL (65-115); Magnesium 1.6 mg/dL (1.7-2.3); Osmolality Calculated 308 mOsm/kg (285-295); Phosphorus 4.1 mg/dL (2.5-4.5); Potassium 3.9 mmol/L (3.5-5.1); Sodium 141 mmol/L (136-145); Total Bilirubin 0.2 mg/dL (0.15-1.2); Total Protein 5.2 g/dL (6.6-8.7)
[2020-09-21] MEDS: clopidogrel 75 mg Tablet PO (09:17)
[2020-09-21] MEDS: carvedilol 12.5 mg Tablet PO ×2 (09:17→20:07)
[2020-09-21] MEDS: amlodipine 5 mg Tablet PO (09:17)
[2020-09-21] MEDS: heparin 5,000 unit/mL INJ 1 mL 5000 UNIT SUBCUT ×2 (11:31→22:13)
--- NOTE | 2020-09-21 11:40 | PC.NURSE ---
with o.t. help, assisted up to side of bed, then ambulated to rm. curtains and back to bathroom with walker. sm. soft bm. bath in progress.
[2020-09-21 12:26] LABS: Glucose Point of Care 108 mg/dL (70-110)
--- NOTE | 2020-09-21 14:11 | PM.PN ---
Subjective Subjective: Interval history: 70 year old with past medical history of hypertension, dyslipidemia, hypothyroidism, congestive heart failure unspecified type, chronic obstructive pulmonary disease, obstructive sleep apnea ( non-compliant with nocturnal o2 ), diabetes mellitus, and recent back surgery at [facility] ( discharged on 08/24) who presented to ER today with 1 week history of progressive weakness with fall earlier today. Per daughter at bedside who provided history stated patient has been declining in this past week. She has been c/o difficulty ambulating due to bilateral LE weakness. This was associated with increasingly poor appetite and intermittent episode of altered mental status. States at times she did not recognize family members however shortly after would return to baseline. Earlier today family planned to take her out to restaurant however was requiring multiple persons to assist in ambulating and while attempted to get in to her truck she sustained a fall. No LOC. No head trauma or seizure like activity. No reported fever or chills. Noted nausea and two episodes of non-bloody emesis on 09/18. Denied any complaints of chest pain, dyspnea, abdominal pain, diarrhea or constipation. She was recently seen for post op follow up [address] [facility] during which time she was noted to have UTI. Had denied any dysuria, frequency or urgency. Completed course of ciprofloxacin on 09/12 Laboratory workup on arrival today showed a WBC of 11.3, hemoglobin of 11.6, hematocrit 38.3 and a platelet count of 340. sodium 134, potassium 7.6, chloride of 92, bicarb of 15, BUN of 91 and a creatinine of 6.9. LFT were WNL. ABG showed a PH of 7.25, Pco2 of 37.8, HCO3 of 16.6 and K of 6.3. Lactic acid of 2.8. TroponinT baseline of 58, 53.61 at 120 min ( delta negative 4.39), ProBNP of 6866. UA showed 1+ ketones, 2+ blood neg, trace leuk/nitrates. CPK 105. Rapid COVID-19 negative. Patient was given 1L bolus of NS, regular insulin 10 units IV x 1, D50 1 amp, calcium gluconatge 1g iv x 1, Kayexelate 15g PO x 1 and high dose albuterol nebulized. Repeat lab work up had showed potassium improved to 5.0, creatinine increased to 7.7 and lactic acid increased to 3.9. Nephrology was then consulted and patient was started on sodium bicarb 75meq/NS at 125cchr. Initial vitals on arrival were BP of 161/109 however this decreased to 74/48. Temp of 97.9, HR of 82, RR of 18-22, 96 percent o2 on RA. Imaging studies included chest x-ray which did not show any acute abnormality, head CT which showed mild atrophy and chronic ischemic disease. CT abdomen pelvis showed wall thickening of the small bowel loops in the left abdomen suspicious for nonspecific enteritis, stable diverticulosis, stable infrarenal abdominal aortic aneurysm and multiple old compression deformities of the vertebrae with appearance of prior kyphoplasty. Patient was admitted to ICU. Noted to have increasing urine output . Verified with patients family who noted prior history of lupus. Was not on any chronic immunosupressives. Renal function improved to creatinine of 5.2. Hyperkalemia resolved. Renal ultrasound was performed which did not show any acute abnormality. Both kidneys appear structurally normal. Echocardiogram was performed which showed an EF of 70% without any evidence of regional wall motion abnormality. She was empirically started on Primixin 500 mg IV q8hr due to possible UTI with hx of ESBL Ecoli. 09/20 Patient remained confused overnight. Increasing urine output. Now hypertensive. No fever, chills, nausea, vomiting or diarrhea. 09/21 Patient was doing much better. Mental status had returned to baseline. Patient was tolerating oral intake. She was transferred to regular medical floor. no fever, chills, nausea or vomiting. Medications: Reviewed: Yes Medication Review Details: Current Medications Acetaminophen (Acetaminophen 325 Mg Tablet) 650 mg PO Q6H PRN PRN Reason: MILD PAIN Albuterol Sulfate (Albuterol 8 Gm Mdi) 2 puff INHALATION Q4H PRN PRN Reason: Shortness Of Breath Albuterol/Ipratropium (Ipratropium-Albuterol 3 Ml Neb) 3 ml INHALATION Q6H PRN PRN Reason: Shortness Of Breath Last Admin: 09/20/20 03:13 Dose: 3 ml Documented by: Carvedilol (Carvedilol 25 Mg Tablet) 25 mg PO Q12H [facility] Last Admin: 09/19/20 23:23 Dose: 25 mg Documented by: Clopidogrel Bisulfate (Clopidogrel 75 Mg Tablet) 75 mg PO DAILY@08 [facility] Heparin Sodium (Beef Lung) (Heparin 5,000 Unit/Ml Inj 1 Ml) 5,000 unit SUBCUT Q12H [facility] Last Admin: 09/19/20 23:23 Dose: 5,000 unit Documented by: Sodium Bicarbonate 75 meq/ (Sodium Chloride) 1,000 mls @ 125 mls/hr IV .Q8H [facility] Last Admin: 09/20/20 04:33 Dose: 125 mls/hr Documented by: Levothyroxine Sodium (Levothyroxine 50 Mcg Tablet) 50 mcg PO DAILY@07 [facility] Last Admin: 09/20/20 06:15 Dose: 50 mcg Documented by: Morphine Sulfate (Morphine 4 Mg/Ml Sdv 1 Ml) 4 mg IVP Q4H PRN PRN Reason: SEVERE PAIN Ondansetron HCl (Ondansetron 2 Mg/Ml Sdv 2 Ml) 4 mg IVP Q6H PRN PRN Reason: NAUSEA AND VOMITING Tiotropium [place] (Tiotropium 18 Mcg Mdi) 1 mcg INHALATION DAILY@08 [facility] Vitals/I&O/Wt Last Vital Signs Temp 97.7 F 09/20/20 14:00 Pulse 75 09/21/20 10:00 Resp 20 H 09/21/20 11:32 BP 134/89 09/21/20 10:00 Pulse Ox 92 09/21/20 10:00 09/20/20 09/21/20 09/21/20 22:59 06:59 14:59 Intake Total 334 / 334 1096.25 / 1430.25 220 / 220 Output Total 1300 / 1300 400 / 1700 Balance -966 / -966 696.25 / -269.75 220 / 220 Weight last 48 hrs Weight 102.965 kg Weight 106.141 kg Physical Exam Narrative: EXAM NARRATIVE: General : More alert today, No distress HEENT : Grossly unremarkable CVS: NSR CHEST : Non-labored respiration ABD : Soft NT/ND EXT : no edema Urinary Catheter Management^: Naranjo: Cath Placed During This Visit: yes Reason for Continuing Indwelling Catheter: Accurate Measurement of Urinary Output in Critically Ill Patients Urinary Catheter Date of Insertion: 09/19/20 Urinary Catheter Time of Insertion: 15:10 Data : 09/21/20 07:45 09/21/20 07:45 Micro: Microbiology 09/19/20 15:11 Urine Culture - Final Urine,Clean Catch 09/21/20 07:45 Blood Culture - Preliminary Blood SPECIMEN COLLECTED 09/21/20 07:49 Blood Culture - Preliminary Blood SPECIMEN COLLECTED A&P Assessment and plan (1) Acute renal failure: Status: Acute Qualifiers: Acute renal failure type: unspecified Qualified Code(s): N17.9 - Acute kidney failure, unspecified (2) Acute hyperkalemia: Status: Acute (3) Essential hypertension: Status: Acute (4) Post-laminectomy syndrome: Status: Acute (5) Encephalopathy: Status: Acute Acute renal failure with Hyperkalemia / AG Metabolic acidosis - Pre-renal vs AIN vs ATN - Hypotensive shortly after arrival - Nephrology consulted - K 6.3 -> D50/Insulin/Albuterol/CaGlu/kayexelate-> 5.0 on admission - Creatinine 6.9 -> 7.7 - 5.2 -> 2.9 - Renal dosing on meds - Hold home lisinopril and lasix - F/u on UA creatinine/eosinophils, protein-creatinine ratio, total 24hr urine and creatinine, urine lytes - F/u on autoimmune work up - Anti DSDNA, ANCA, NABEEL, anti-streptolysin O, anti-bessy DNA - pending - C3 - 141, C4 - 35, hebC ab negative - SPEP, light chains ordered - pending - Renal US - Within normal limits - Now off IVF per nephrology - Follow up on 24 hr urine collection - Repeat BMP in AM - Naranjo in place - monitor output Generalized weakness / Acute encephalopathy - improved - Likely metabolic due to renal failure vs infectious - No obvious acute infectious process - Fall precautions - Bedside swallow - Will consult ST in am - PT/OT consult Suspected UTI ( hx of ESBL Ecoli in 04/2020 ) / Possible enteritis - CT abd/pelvis showed thickened small bowel loops - Remains afebrile, monitor for diarrhea , no abdominal pain - Pro-calcitonin - > 0.25 - Urine culture - pending - Follow up on blood culture x 2 - NGTD - Empirically started on Primaxin 500mg IV q6hr on 09/20 Hypertension - Initially held due to hypotension - Now BP high - Coreg 12.5 mg PO BID - Norvasc 5 mg PO daily added Hypomagnesemia - Mg 1.6 - Replace with mg sulfate Back pain s/p recent laminectomy - PT OT consultation - Pain control Hx of Congestive heart failure - ECHO - pEF - Daily weight, Strict I&O Diabetes Mellitus - Hold metformin - Sliding scale insulin - Advance to renal/diabetic diet Hypothyroidism - Levothyroxine 50 mcg po daily Hyperlipidemia - Resume statins Chronic obstructive pulmonary disease / EULALIO - Non-compliant with home o2 at night - Stable - DuoNeb PRN - 02 as needed GI ppx - Protonix 40 mg PO daily DVT ppx - Heparin 5000 units BID CODE STATUS : FULL CODE Disposition: Ok to transfer to med/surg once bed available Attestations Medical Necessity Statement*: Will continue hospitalization for management of renal failure, altered mental status and possible urinary tract infection Time Spent in Patient Care: Greater than 35 minutes (>than 50% of time spent in counselling and/or direct pt care on unit). Coding Level of Care Code Acute Pitch Worker for Genevieve Carter Diagnoses Acute renal failure N17.9 Acute renal failure type: unspecified Acute hyperkalemia E87.5 Essential hypertension I10 Post-laminectomy syndrome M96.1 Encephalopathy G93.40
[2020-09-21 14:18] LABS: Anti-Nuclear Antibody Screen NEGATIVE (NEGATIVE)
[2020-09-21 14:48] LABS: Anti-Double Strand DNA AB <1 IU/mL; Anti-streptolysin O <50 IU/mL (<200)
[2020-09-21] MEDS: acetaminophen 325 mg Tablet 650 MG PO (15:53)
--- NOTE | 2020-09-21 17:30 | ECG_ITS ---
[facility] Test Date: 2020-09-21 Pat Name: Courtney Barrios Department: Room: ICU12 Gender: Female Line Up Worker: : 1950 Requested By: Shasha Mcnally Order Number: [id number] Grant MD: Adela Guerrero M.D. Measurements Intervals [place] Rate: 71 P: -72 [place]: 137 QRS: 36 QRSD: 89 T: 30 QT: 384 QTc: 417 Interpretive Statements Normal sinus rhythm Compared to ECG 09/20/2020 01:58:02 No significant change Electronically Signed On 09-21-2020 21:28:14 PROCESS ENGINEERING MANAGER by Adela Guerrero M.D. [id number]
--- NOTE | 2020-09-21 17:34 | PC.NURSE ---
c/o shortness of breath, o2 to 2l. sat was 94 on rm air. b/p elevated, notified.
--- NOTE | 2020-09-21 17:38 | PC.RESP ---
Smoking Cessation information sent to patient.
--- NOTE | 2020-09-21 17:39 | PC.RESP ---
Pulmonary Rehab information sent to patient.
[2020-09-21] MEDS: hyDRALAzine 20 mg/mL INJ 1 mL 10 MG IVP (17:42)
[2020-09-21 18:03] LABS: Glucose Point of Care 95 mg/dL (70-110)
[2020-09-21] MEDS: sertraline 100 mg Tablet PO (20:06)
[2020-09-21] MEDS: pregabalin 150 mg Capsule PO (20:06)
[2020-09-21] MEDS: atorvastatin 40 mg Tablet 20 MG PO (20:06)
[2020-09-21 20:15] LABS: Glucose Point of Care 133 mg/dL (70-110)
--- NOTE | 2020-09-21 20:30 | PC.NURSE ---
Assessment AO x4, follows commands, answers questions appropriately, denies SOB at this time, denied pain, turns self in bed, supine 30 degrees call light within reach
[2020-09-22] VITALS (21 sets, daily range): BP systolic 123–202; BP diastolic 62–113; PULSE 68–83; RESP 11–23; TEMP 37.1–37.7; O2SAT 92–99
[2020-09-22] MEDS: morphine 4 mg/mL SDV 1 mL IVP ×3 (01:06→19:33)
[2020-09-22 05:02] LABS: Basophils % 0.6 %; Eosinophils # 0.3 10^3/uL (0.0-0.8); Eosinophils % 5.2 %; Hematocrit 36.9 % (37.0-47.0); Hemoglobin 11.4 g/dL (11.5-15.3); Lymphocytes # 1.6 10^3/uL (0.8-4.8); Lymphocytes % 30.3 %; Mean Corpuscular HGB Conc 30.9 g/dL (30.0-36.0); Mean Corpuscular Hemoglobin 25.4 pg (28.0-34.0); Mean Corpuscular Volume 82.2 fL (81-99); Mean Platelet Volume 11.6 fL (7.4-10.4); Monocytes # 0.5 10^3/uL (0.2-0.9); Monocytes % 9.5 %; Neutrophils # 2.89 10^3/uL (1.8-7.7); Nucleated Red Blood Cells % 0 %; Platelet Count 164 10^3/cmm (130-400); Red Blood Count 4.49 10^6/uL (4.1-5.3); Red Cell Distribution Width 15.7 % (12.1-15.1); White Blood Count 5.4 10^3/uL (4.0-10.0)
[2020-09-22 05:31] LABS: Slide Review Slide Review Perform
[2020-09-22] MEDS: levothyroxine 50 mcg Tablet PO (06:23)
--- NOTE | 2020-09-22 06:55 | NUR.SHIFT ---
uneventful night, currently on 1L NC, denies SOB, turned self through night, supine 30 degrees call light within reach
[2020-09-22 07:07] LABS: Alanine Aminotransferase 9 U/L (0-33); Alkaline Phosphatase 114 IU/L (35-105); Anion Gap 10.8 (5-19); Aspartate Amino Transferase 16 U/L (0-32); Blood Urea Nitrogen 32 mg/dL (8-23); Calcium 9.1 mg/dL (8.5-10.5); Carbon Dioxide 31 mmol/L (22-29); Chloride 104 mmol/L (98-107); Globulin 2.4 g/dL (1.3-4.6); Glucose 115 mg/dL (65-115); Magnesium 1.6 mg/dL (1.7-2.3); Osmolality Calculated 302 mOsm/kg (285-295); Phosphorus 3.5 mg/dL (2.5-4.5); Potassium 3.8 mmol/L (3.5-5.1); Sodium 142 mmol/L (136-145); Total Bilirubin 0.3 mg/dL (0.15-1.2); Total Protein 5.4 g/dL (6.6-8.7)
[2020-09-22 07:57] LABS: PROTEIN, TOTAL 4.8 g/dL (6.1-8.1)
--- NOTE | 2020-09-22 08:04 | P.PN_ITS ---
Subjective Subjective: Interval history: feels well. eating, drinking. no n/v/f/c/he/d. some edema and sob Medications: Reviewed: Yes Medication Review Details: Current Medications Acetaminophen (Acetaminophen 325 Mg Tablet) 650 mg PO Q6H PRN PRN Reason: MILD PAIN Last Admin: 09/21/20 15:53 Dose: 650 mg Documented by: Albuterol Sulfate (Albuterol 8 Gm Mdi) 2 puff INHALATION Q4H PRN PRN Reason: Shortness Of Breath Albuterol/Ipratropium (Ipratropium-Albuterol 3 Ml Neb) 3 ml INHALATION Q6H PRN PRN Reason: Shortness Of Breath Last Admin: 09/21/20 08:37 Dose: 3 ml Documented by: Amlodipine Besylate (Amlodipine 5 Mg Tablet) 5 mg PO DAILY [facility] Last Admin: 09/21/20 09:17 Dose: 5 mg Documented by: Atorvastatin Calcium (Atorvastatin 40 Mg Tablet) 20 mg PO DAILY@20 [facility] Last Admin: 09/21/20 20:06 Dose: 20 mg Documented by: Carvedilol (Carvedilol 12.5 Mg Tablet) 12.5 mg PO Q12H [facility] Last Admin: 09/21/20 20:07 Dose: 12.5 mg Documented by: Clopidogrel Bisulfate (Clopidogrel 75 Mg Tablet) 75 mg PO DAILY@08 [facility] Last Admin: 09/21/20 09:17 Dose: 75 mg Documented by: Dextrose (Dextrose 50% Syringe 50 Ml) 25 ml IVP ONCE PRN; Protocol PRN Reason: hypoglycemia protocol Dextrose (Dextrose 50% Syringe 50 Ml) 50 ml IVP PRN PRN; Protocol PRN Reason: hypoglycemia protocol Glucagon (Glucagon 1 Mg/Ml Inj 1 Ml) 1 mg IM ONCE PRN; Protocol PRN Reason: Adult Acute Hypoglycemia Prot. Heparin Sodium (Beef Lung) (Heparin 5,000 Unit/Ml Inj 1 Ml) 5,000 unit SUBCUT Q12H [facility] Last Admin: 09/21/20 22:13 Dose: 5,000 unit Documented by: Dextrose (D5w) 500 mls @ 100 mls/hr IV ONCE PRN; Protocol PRN Reason: Adult Acute Hypoglycemia Prot Imipenem/Cilastatin Sodium 250 (mg/ Sodium Chloride) 100 mls @ 200 mls/hr IV Q12H [facility] Last Admin: 09/21/20 22:13 Dose: 200 mls/hr Documented by: Insulin Aspart (Insulin Aspart 100 Unit/1 Ml) 0 unit SUBCUT WM&BEDTIME [facility]; Protocol Last Admin: 09/21/20 20:13 Dose: Not Given Documented by: Levothyroxine Sodium (Levothyroxine 50 Mcg Tablet) 50 mcg PO DAILY@07 [facility] Last Admin: 09/22/20 06:23 Dose: 50 mcg Documented by: Morphine Sulfate (Morphine 4 Mg/Ml Sdv 1 Ml) 4 mg IVP Q4H PRN PRN Reason: SEVERE PAIN Last Admin: 09/22/20 01:06 Dose: 4 mg Documented by: Ondansetron HCl (Ondansetron 2 Mg/Ml Sdv 2 Ml) 4 mg IVP Q6H PRN PRN Reason: NAUSEA AND VOMITING Pregabalin (Pregabalin 150 Mg Capsule) 150 mg PO BID@, [facility] Last Admin: 09/21/20 20:06 Dose: 150 mg Documented by: Sertraline HCl (Sertraline 100 Mg Tablet) 100 mg PO DAILY@ [facility] Last Admin: 09/21/20 20:06 Dose: 100 mg Documented by: Tiotropium [place] (Tiotropium 18 Mcg Mdi) 1 mcg INHALATION DAILY@ [facility] Last Admin: 09/21/20 08:36 Dose: 1 inhalation Documented by: Vitals/I&O/Wt Last Vital Signs Temp 99.8 F H 09/22/20 03:47 Pulse 70 09/22/20 06:00 Resp 16 09/22/20 06:00 BP 130/76 09/22/20 06:00 Pulse Ox 96 09/22/20 06:00 09/21/20 09/22/20 09/22/20 22:59 06:59 14:59 Intake Total 240 / 940 Output Total 1700 / 1700 1100 / 2800 Balance -1460 / -760 -1100 / -1860 Weight last 48 hrs Weight 102.512 kg Weight 102.965 kg Physical Exam Narrative: EXAM NARRATIVE: obese lady comfortable in bed VS noted- BP now elevated heent - nc/at, eomi neck supple lungs crackles and wheezes b/l heart reg abd soft, nt, nd ext -1+ b/l leg edema neuro- awake, alert , interactive +vee Urinary Catheter Management^: Vee: Cath Placed During This Visit: yes Reason for Continuing Indwelling Catheter: Accurate Measurement of Urinary Output in Critically Ill Patients Urinary Catheter Date of Insertion: 09/19/20 Urinary Catheter Time of Insertion: 15:10 Data : 09/22/20 04:34 09/22/20 05:17 Micro: Microbiology 09/21/20 07:45 Blood Culture - Preliminary Blood NEGATIVE TO DATE 09/21/20 07:49 Blood Culture - Preliminary Blood NEGATIVE TO DATE 09/19/20 15:11 Urine Culture - Final Urine,Clean Catch A&P Additional A&P Information 70 y r old female CAD, obesity, CHF per hx, multiple UTIs, DM, depression/ fibromyalgia, arthritis, Q of SLE, breast ca, infrarenal AAA. Ps last month and she had back surgery- cement procedures done last month. Pt has since been weak, depressed, not eating, and confused. 1. Eval for infection per medicine Q enteritis on CT scan -f/u cx >100,000 mixed gabriel -d/c vee abx if needed as per medicine- consider stopping imipenem 2. AMS- improved 3. JUAN MANUEL- likely ATN - she was depressed, not eating and on diuretics and LIBRA-i at home. her bp remains low -normal renal us -normal ck -renal fxn improved -lactic acid improved -u/a sg 1020, ketones 1+, 2+ blood, 1 + prot- send serologies- given Questionable hx of SLE hep c neg, geni anti- dna pending -normal complements -d/c eve 4. hyperkalemia-from JUAN MANUEL and lisinopril- hold lisinopril- -k improved w/ medical management 5. hyponatremia- improved off diuretics and w/ ivf 6. met alkalosis 7. JUAN MANUEL and h/o CHF- echo- EF 70%, RVH, Q of moderator band PA systolic pressure 51 -developed crackles- start low dose lasix 8. htn- BP high- avoid libra-i/ ARB w/ JUAN MANUEL - norvasc 5 mgm daily -d/c ivf 9. anemia and JUAN MANUEL- await spep/ upep 10. hyperphosphatemia resolved=d/c sevelamer pth 105- repeat in 4 weeks 11. back pain- avoid NSAID- would get PT and try to ambulate will see PRN- please call if we can help monitor uop w/ removal of fopley Attestations Medical Necessity Statement*: htn, improved JUAN MANUEL Time Spent in Patient Care: 16 - 35 minutes Coding Level of Care Code Acute Branch Account Executive for Genevieve Carter
[2020-09-22] MEDS: FUROsemide 20 mg Tablet PO (08:42)
[2020-09-22] MEDS: pregabalin 150 mg Capsule PO ×2 (08:42→20:01)
[2020-09-22] MEDS: clopidogrel 75 mg Tablet PO (08:42)
[2020-09-22] MEDS: carvedilol 12.5 mg Tablet PO ×2 (08:43→20:00)
[2020-09-22] MEDS: amlodipine 5 mg Tablet PO (08:43)
[2020-09-22] MEDS: heparin 5,000 unit/mL INJ 1 mL 5000 UNIT SUBCUT ×2 (10:00→23:31)
--- NOTE | 2020-09-22 11:55 | PC.SOCIAL ---
Pg 2 IMM Explained to pt Pg 2 IMM. No questions voiced. Provided pt a copy. Signed, dated, & timed a copy & placed in pt's chart.
[2020-09-22 12:53] LABS: KAPPA LIGHT CHAIN, FREE, SERUM 56.4 mg/L (3.3-19.4); KAPPA/LAMBDA LIGHT CHAINS FREE 3.53 (0.26-1.65)
[2020-09-22 15:32] LABS: ALBUMIN 2.6 g/dL (3.8-4.8); ALPHA 1 GLOBULIN 0.3 g/dL (0.2-0.3); ALPHA 2 GLOBULIN 0.8 g/dL (0.5-0.9); BETA 1 GLOBULIN 0.4 g/dL (0.4-0.6); BETA 2 GLOBULIN 0.3 g/dL (0.2-0.5); GAMMA GLOBULIN 0.4 g/dL (0.8-1.7)
--- NOTE | 2020-09-22 17:27 | PM.PN ---
Subjective Subjective: Interval history: 70 year old with past medical history of hypertension, dyslipidemia, hypothyroidism, congestive heart failure unspecified type, chronic obstructive pulmonary disease, obstructive sleep apnea ( non-compliant with nocturnal o2 ), diabetes mellitus, and recent back surgery at [facility] ( discharged on 08/24) who presented to ER today with 1 week history of progressive weakness with fall earlier today. Per daughter at bedside who provided history stated patient has been declining in this past week. She has been c/o difficulty ambulating due to bilateral LE weakness. This was associated with increasingly poor appetite and intermittent episode of altered mental status. States at times she did not recognize family members however shortly after would return to baseline. Earlier today family planned to take her out to restaurant however was requiring multiple persons to assist in ambulating and while attempted to get in to her truck she sustained a fall. No LOC. No head trauma or seizure like activity. No reported fever or chills. Noted nausea and two episodes of non-bloody emesis on 09/18. Denied any complaints of chest pain, dyspnea, abdominal pain, diarrhea or constipation. She was recently seen for post op follow up 2 weeks prior at [facility] during which time she was noted to have UTI. Had denied any dysuria, frequency or urgency. Completed course of ciprofloxacin on 09/12 Laboratory workup on arrival today showed a WBC of 11.3, hemoglobin of 11.6, hematocrit 38.3 and a platelet count of 340. sodium 134, potassium 7.6, chloride of 92, bicarb of 15, BUN of 91 and a creatinine of 6.9. LFT were WNL. ABG showed a PH of 7.25, Pco2 of 37.8, HCO3 of 16.6 and K of 6.3. Lactic acid of 2.8. TroponinT baseline of 58, 53.61 at 120 min ( delta negative 4.39), ProBNP of 6866. UA showed 1+ ketones, 2+ blood neg, trace leuk/nitrates. CPK 105. Rapid COVID-19 negative. Patient was given 1L bolus of NS, regular insulin 10 units IV x 1, D50 1 amp, calcium gluconatge 1g iv x 1, Kayexelate 15g PO x 1 and high dose albuterol nebulized. Repeat lab work up had showed potassium improved to 5.0, creatinine increased to 7.7 and lactic acid increased to 3.9. Nephrology was then consulted and patient was started on sodium bicarb 75meq/NS at 125cchr. Initial vitals on arrival were BP of 161/109 however this decreased to 74/48. Temp of 97.9, HR of 82, RR of 18-22, 96 percent o2 on RA. Imaging studies included chest x-ray which did not show any acute abnormality, head CT which showed mild atrophy and chronic ischemic disease. CT abdomen pelvis showed wall thickening of the small bowel loops in the left abdomen suspicious for nonspecific enteritis, stable diverticulosis, stable infrarenal abdominal aortic aneurysm and multiple old compression deformities of the vertebrae with appearance of prior kyphoplasty. Patient was admitted to ICU. Noted to have increasing urine output . Verified with patients family who noted prior history of lupus. Was not on any chronic immunosupressives. Renal function improved to creatinine of 5.2. Hyperkalemia resolved. Renal ultrasound was performed which did not show any acute abnormality. Both kidneys appear structurally normal. Echocardiogram was performed which showed an EF of 70% without any evidence of regional wall motion abnormality. She was empirically started on Primixin 500 mg IV q8hr due to possible UTI with hx of ESBL Ecoli. 09/20 Patient remained confused overnight. Increasing urine output. Now hypertensive. No fever, chills, nausea, vomiting or diarrhea. 09/21 Patient was doing much better. Mental status had returned to baseline. Patient was tolerating oral intake. She was transferred to regular medical floor. no fever, chills, nausea or vomiting. 09/22 Continued to improve. Medications: Reviewed: Yes Medication Review Details: Current Medications Acetaminophen (Acetaminophen 325 Mg Tablet) 650 mg PO Q6H PRN PRN Reason: MILD PAIN Albuterol Sulfate (Albuterol 8 Gm Mdi) 2 puff INHALATION Q4H PRN PRN Reason: Shortness Of Breath Albuterol/Ipratropium (Ipratropium-Albuterol 3 Ml Neb) 3 ml INHALATION Q6H PRN PRN Reason: Shortness Of Breath Last Admin: 09/20/20 03:13 Dose: 3 ml Documented by: Carvedilol (Carvedilol 25 Mg Tablet) 25 mg PO Q12H [facility] Last Admin: 09/19/20 23:23 Dose: 25 mg Documented by: Clopidogrel Bisulfate (Clopidogrel 75 Mg Tablet) 75 mg PO DAILY@08 [facility] Heparin Sodium (Beef Lung) (Heparin 5,000 Unit/Ml Inj 1 Ml) 5,000 unit SUBCUT Q12H [facility] Last Admin: 09/19/20 23:23 Dose: 5,000 unit Documented by: Sodium Bicarbonate 75 meq/ (Sodium Chloride) 1,000 mls @ 125 mls/hr IV .Q8H [facility] Last Admin: 09/20/20 04:33 Dose: 125 mls/hr Documented by: Levothyroxine Sodium (Levothyroxine 50 Mcg Tablet) 50 mcg PO DAILY@07 [facility] Last Admin: 09/20/20 06:15 Dose: 50 mcg Documented by: Morphine Sulfate (Morphine 4 Mg/Ml Sdv 1 Ml) 4 mg IVP Q4H PRN PRN Reason: SEVERE PAIN Ondansetron HCl (Ondansetron 2 Mg/Ml Sdv 2 Ml) 4 mg IVP Q6H PRN PRN Reason: NAUSEA AND VOMITING Tiotropium [place] (Tiotropium 18 Mcg Mdi) 1 mcg INHALATION DAILY@08 [facility] Vitals/I&O/Wt Last Vital Signs Temp 99.8 F H 09/22/20 03:47 Pulse 68 09/22/20 12:00 Resp 14 09/22/20 12:00 BP 131/80 09/22/20 12:00 Pulse Ox 98 09/22/20 12:00 09/22/20 09/22/20 09/22/20 06:59 14:59 22:59 Intake Total 720 / 720 Output Total 1100 / 2800 800 / 800 Balance -1100 / -1760 -80 / -80 Weight last 48 hrs Weight 102.512 kg Weight 102.965 kg Physical Exam Narrative: EXAM NARRATIVE: General : More alert today, No distress HEENT : Grossly unremarkable CVS: NSR CHEST : Non-labored respiration ABD : Soft NT/ND EXT : no edema Urinary Catheter Management^: Naranjo: Cath Placed During This Visit: yes Reason for Continuing Indwelling Catheter: Accurate Measurement of Urinary Output in Critically Ill Patients Urinary Catheter Date of Insertion: 09/19/20 Urinary Catheter Time of Insertion: 15:10 Data : 09/22/20 04:34 09/22/20 05:17 Micro: Microbiology 09/21/20 07:45 Blood Culture - Preliminary Blood NEGATIVE TO DATE 09/21/20 07:49 Blood Culture - Preliminary Blood NEGATIVE TO DATE A&P Assessment and plan (1) Acute renal failure: Status: Acute Qualifiers: Acute renal failure type: unspecified Qualified Code(s): N17.9 - Acute kidney failure, unspecified (2) Acute hyperkalemia: Status: Acute (3) Essential hypertension: Status: Acute (4) Post-laminectomy syndrome: Status: Acute (5) Encephalopathy: Status: Acute Acute renal failure with Hyperkalemia / AG Metabolic acidosis - Pre-renal vs AIN vs ATN - Hypotensive shortly after arrival - Nephrology consulted - K 6.3 -> D50/Insulin/Albuterol/CaGlu/kayexelate-> 5.0 on admission - Creatinine 6.9 -> 7.7 - 5.2 -> 2.9 -1.2 - Renal dosing on meds - Hold home lisinopril and lasix - F/u on UA creatinine/eosinophils, protein-creatinine ratio, total 24hr urine and creatinine, urine lytes - F/u on autoimmune work up - Anti DSDNA, ANCA, NABEEL, anti-streptolysin O, anti-bessy DNA - pending - C3 - 141, C4 - 35, hebC ab negative - SPEP, light chains ordered - pending - Renal US - Within normal limits - Follow up on 24 hr urine collection - Repeat BMP in AM - Naranjo in place - monitor output Generalized weakness / Acute encephalopathy - improved - Likely metabolic due to renal failure vs infectious - No obvious acute infectious process - Fall precautions - Bedside swallow - Will consult ST in am - PT/OT consult Suspected UTI ( hx of ESBL Ecoli in 04/2020 ) / Possible enteritis - CT abd/pelvis showed thickened small bowel loops - Remains afebrile, monitor for diarrhea , no abdominal pain - Pro-calcitonin - > 0.25 - Urine culture - pending - Follow up on blood culture x 2 - NGTD - Empirically started on Primaxin 500mg IV q6hr on 09/20 Hypertension - Initially held due to hypotension - Now BP high - Coreg 12.5 mg PO BID - Norvasc 5 mg PO daily added Hypomagnesemia - Mg 1.6 - Replace with mg sulfate Back pain s/p recent laminectomy - PT OT consultation - Pain control Hx of Congestive heart failure - ECHO - pEF - Daily weight, Strict I&O Diabetes Mellitus - Hold metformin - Sliding scale insulin - Advance to renal/diabetic diet Hypothyroidism - Levothyroxine 50 mcg po daily Hyperlipidemia - Resume statins Chronic obstructive pulmonary disease / EULALIO - Non-compliant with home o2 at night - Stable - DuoNeb PRN - 02 as needed GI ppx - Protonix 40 mg PO daily DVT ppx - Heparin 5000 units BID CODE STATUS : FULL CODE Disposition: Ok to transfer to med/surg once bed available Attestations Medical Necessity Statement*: will require further hospitalization for rafael Time Spent in Patient Care: Greater than 35 minutes (>than 50% of time spent in counselling and/or direct pt care on unit). Coding Level of Care Code Acute Greige Mender for Chg Fwd Diagnoses Acute renal failure N17.9 Acute renal failure type: unspecified Acute hyperkalemia E87.5 Essential hypertension I10 Post-laminectomy syndrome M96.1 Encephalopathy G93.40
[2020-09-22 18:07] LABS: Glucose Point of Care 95 mg/dL (70-110)
--- NOTE | 2020-09-22 19:24 | PC.NURSE ---
SCHMIDT CATHETER PT REFUSED TO HAVE SCHMIDT REMOVED D/T HAD A DOSE OF LASIX & DIDN'T WANT TO PEE THE BED ALL DAY LONG. DR CHÁVEZ NOTIFIED
[2020-09-22] MEDS: sertraline 100 mg Tablet PO (20:00)
[2020-09-22] MEDS: atorvastatin 40 mg Tablet 20 MG PO (20:01)
--- NOTE | 2020-09-22 20:11 | PC.NURSE ---
BP 195/112, patient has Hx of HTN, C/O back pain 06/09, PRN Morphine administered per request, BP trending down at 187/106 at this time, AO x4, speech clear, door to door sales representative strong and equal, follows commands answers questions appropriately, moves self in bed, supine 30 degrees call light within reach
[2020-09-22 20:16] LABS: Glucose Point of Care 101 mg/dL (70-110)
[2020-09-22 20:16] LABS: Glucose Point of Care 143 mg/dL (70-110)
[2020-09-22 20:16] LABS: Glucose Point of Care 106 mg/dL (70-110)
--- NOTE | 2020-09-22 20:43 | PC.NURSE ---
refuses foly cath to be taken out per order at this time
[2020-09-23] VITALS (19 sets, daily range): BP systolic 113–184; BP diastolic 67–123; PULSE 67–88; RESP 14–23; TEMP 37.1; O2SAT 87–98
[2020-09-23] MEDS: morphine 4 mg/mL SDV 1 mL IVP ×4 (00:09→22:54)
--- NOTE | 2020-09-23 00:54 | PC.NURSE ---
Dr. Montero notified of BP 195/112 at beginning of shift with PRN Morphine administered for pain which brought BP to 150/94. and BP trending up to 178/102, no new orders at this time, BP currently 162/97
--- NOTE | 2020-09-23 01:53 | PC.NURSE ---
O2 88 RA, placed on 2L NC, O2 sat in 95-96 at this time
[2020-09-23 05:00] LABS: Alanine Aminotransferase 8 U/L (0-33); Albumin Level 3.2 g/dL (3.5-5.2); Alkaline Phosphatase 117 IU/L (35-105); Anion Gap 13.6 (5-19); Aspartate Amino Transferase 17 U/L (0-32); Blood Urea Nitrogen 17 mg/dL (8-23); Calcium 8.9 mg/dL (8.5-10.5); Carbon Dioxide 29 mmol/L (22-29); Chloride 103 mmol/L (98-107); Creatinine Clr Calc Pharmacy 75.1706; Globulin 2.4 g/dL (1.3-4.6); Glucose 100 mg/dL (65-115); Magnesium 1.4 mg/dL (1.7-2.3); Osmolality Calculated 296 mOsm/kg (285-295); Phosphorus 3.5 mg/dL (2.5-4.5); Potassium 3.6 mmol/L (3.5-5.1); Sodium 142 mmol/L (136-145); Total Bilirubin 0.3 mg/dL (0.15-1.2); Total Protein 5.6 g/dL (6.6-8.7)
[2020-09-23] MEDS: levothyroxine 50 mcg Tablet PO (06:06)
--- NOTE | 2020-09-23 09:49 | PC.CHAP ---
Pastoral Care Encounter/Spiritual Assessment Type of Contact [] Declined boarding specialist visit [] Patient/Family/Request visit [] Outpatient visit [] Follow-up visit [] Physician referral [] Code/Alert [] Routine visit [] Staff referral [] Actively dying [] Patient sleeping [] Family support [] [] Out of room [] Palliative care [] [] Receiving care in room [] Pre-surgical visit [] Trauma [] Long length of stay [x] ICU visit [] Other: Relational/Emotional Strength [] Patient feels connected with others/family/visitors/staff [] Distress [] Loneliness/isolation [] Abandonment Spirituality of Patient [] Person of Agueda [] Attends Jewish of their [place] [] Believes in Prayer [] Reads Bible or Jewish materials [] There are Spiritual issues to be addressed Typist Interventions [x] Prayer [] Active listening [] Non-anxious presence [] Spiritual/emotional support [] Crisis/trauma care [] Spiritual counseling [] Bereavement support [] Provided bereavement packet [] Provided Bible/devotional materials [] Provided toy/stuffed animal, coloring book to patient or family member [] Provided Communion [] Anointing/[place] [] Salvation [x] Completed spiritual assessment [] Other: Impact on Illness or Injury [] Angry [] Fearful [] Anxious [] Often cries [] Exhaustion [] Unable to work [] Unable to attend hinduism [] Unable to walk/stand [] Unable to read [] Unable to drive [] Unable to eat/drink [] Unable to sleep [] Unable to be with family [] Patient intubated [] Other: Summary Time spent with patient
[2020-09-23] MEDS: pregabalin 150 mg Capsule PO ×2 (10:05→19:33)
[2020-09-23] MEDS: carvedilol 12.5 mg Tablet PO ×2 (10:05→20:14)
[2020-09-23] MEDS: amlodipine 5 mg Tablet PO (10:05)
[2020-09-23] MEDS: FUROsemide 20 mg Tablet PO (10:05)
[2020-09-23] MEDS: clopidogrel 75 mg Tablet PO (10:06)
[2020-09-23] MEDS: heparin 5,000 unit/mL INJ 1 mL 5000 UNIT SUBCUT ×2 (10:07→21:49)
[2020-09-23] MEDS: ipratropium-albuterol 3 mL Neb INHALATION ×2 (10:41→21:50)
[2020-09-23 12:11] LABS: Glucose Point of Care 94 mg/dL (70-110)
[2020-09-23 12:11] LABS: Glucose Point of Care 131 mg/dL (70-110)
--- NOTE | 2020-09-23 12:50 | PC.PT ---
Patient refused PT treatment this morning, stating she may be willing in the afternoon. PT will attempt again to treat this afternoon, pending schedule.
--- NOTE | 2020-09-23 13:09 | PC.PT ---
Attempted to see patient in the morning. Patient refused. Will attempt again in PM, if time permits
--- NOTE | 2020-09-23 13:19 | XRR_ITS ---
PROCEDURE INFORMATION: Exam: XR Pelvis Exam date and time: 09/23/2020 1:45 PM Age: 70 years old Clinical indication: Pelvic pain; Prior surgery; Surgery date: <1 month; Additional info: B/l hip pain TECHNIQUE: Imaging protocol: XR pelvis. Views: 1 or 2 view. COMPARISON: CT kidney stone [id number] 09/19/2020 4:37 PM FINDINGS: Bones/joints: There is osteopenia.There is no evidence for acute fracture or malalignment. Soft tissues: Unremarkable. XR/XR pelvis 1-2V* [id number] IMPRESSION: There are no acute concerning abnormalities. If there is desire for further evaluation, a CT scan could be performed.
--- NOTE | 2020-09-23 14:27 | PC.OT ---
OT Note: Patient receiving nursing care when tx attempted. Will attempt tomorrow.
--- NOTE | 2020-09-23 17:12 | P.PN_ITS ---
Subjective Subjective: Interval history: 70 year old with past medical history of hypertension, dyslipidemia, hypothyroidism, congestive heart failure unspecified type, chronic obstructive pulmonary disease, obstructive sleep apnea ( non- compliant with nocturnal o2 ), diabetes mellitus, and recent back surgery at [facility] ( discharged on 08/24) who presented to ER today with 1 week hi story of progressive weakness with fall earlier today. Per daughter at bedside who provided history stated patient has been declining in this past week. She has been c/o difficulty ambulating due to bilateral LE weakness. This was associated with increasingly poor appetite and intermittent episode of altered mental status. States at times she did not recognize family members however shortly after would return to baseline. Earlier today family planned to take her out to restaurant however was requiring multiple persons to assist in ambulating and while attempted to get in to her truck she sustained a fall. No LOC. No head trauma or seizure like activity. No reported fever or chills. Noted nausea and two episodes of non-bloody emesis on 09/18. Denied any complaints of chest pain, dyspnea, abdominal pain, diarrhea or constipation. She was recently seen for post op follow up [address] [facility] during which time she was noted to have UTI. Had denied any dysuria, frequency or urgency. Completed course of ciprofloxacin on 09/12 Laboratory workup on arrival today showed a WBC of 11.3, hemoglobin of 11.6, hematocrit 38.3 and a platelet count of 340. sodium 134, potassium 7.6, chloride of 92, bicarb of 15, BUN of 91 and a creatinine of 6.9. LFT were WNL. ABG showed a PH of 7.25, Pco2 of 37.8, HCO3 of 16.6 and K of 6.3. Lactic acid of 2.8. TroponinT baseline of 58, 53.61 at 120 min ( delta negative 4.39), ProBNP of 6866. UA showed 1+ ketones, 2+ blood neg, trace leuk/nitrates. CPK 105. Rapid COVID-19 negative. Patient was given 1L bolus of NS, regular insulin 10 units IV x 1, D50 1 amp, calcium gluconatge 1g iv x 1, Kayexelate 15g PO x 1 and high dose albuterol nebulized. Repeat lab work up had showed potassium improved to 5.0, creatinine increased to 7.7 and lactic acid increased to 3.9. Nephrology was then consulted and patient was started on sodium bicarb 75meq/NS at 125cchr. Initial vitals on arrival were BP of 161/109 however this decreased to 74/48. Temp of 97.9, HR of 82, RR of 18- 22, 96 percent o2 on RA. Imaging studies included chest x-ray which did not show any acute abnormality, head CT which showed mild atrophy and chronic ischemic disease. CT abdomen pelvis showed wall thickening of the small bowel loops in the left abdomen suspicious for nonspecific enteritis, stable diverticulosis, stable infrarenal abdominal aortic aneurysm and multiple old compression deformities of the vertebrae with appearance of prior kyphoplasty. Patient was admitted to ICU. Noted to have increasing urine output . Verified with patients family who noted prior history of lupus. Was not on any chronic immunosupressives. Renal function improved to creatinine of 5.2. Hyperkalemia resolved. Renal ultrasound was performed which did not show any acute abnormali ty. Both kidneys appear structurally normal. Echocardiogram was performed which showed an EF of 70% without any evidence of regional wall motion abnormality. She was empirically started on Primixin 500 mg IV q8hr due to possible UTI with hx of ESBL Ecoli. 09/20 Patient remained confused overnight. Increasing urine output. Now hypertensive. No fever, chills, nausea, vomiting or diarrhea. 09/21 Patient was doing much better. Mental status had returned to baseline. Patient was tolerating oral intake. She was transferred to regular medical floor. no fever, chills, nausea or vomiting. 09/22 Continued to improve. 09/23 No new clinical events overnight, no fever, chills, nausea or vomiting. Medications: Reviewed: Yes Medication Review Details: Current Medications Acetaminophen (Acetaminophen 325 Mg Tablet) 650 mg PO Q6H PRN PRN Reason: MILD PAIN Albuterol Sulfate (Albuterol 8 Gm Mdi) 2 puff INHALATION Q4H PRN PRN Reason: Shortness Of Breath Albuterol/Ipratropium (Ipratropium-Albuterol 3 Ml Neb) 3 ml INHALATION Q6H PRN PRN Reason: Shortness Of Breath Last Admin: 09/20/20 03:13 Dose: 3 ml Documented by: Carvedilol (Carvedilol 25 Mg Tablet) 25 mg PO Q12H [facility] Last Admin: 09/19/20 23:23 Dose: 25 mg Documented by: Clopidogrel Bisulfate (Clopidogrel 75 Mg Tablet) 75 mg PO DAILY@08 [facility] Heparin Sodium (Beef Lung) (Heparin 5,000 Unit/Ml Inj 1 Ml) 5,000 unit SUBCUT Q12H [facility] Last Admin: 09/19/20 23:23 Dose: 5,000 unit Documented by: Sodium Bicarbonate 75 meq/ (Sodium Chloride) 1,000 mls @ 125 mls/hr IV .Q8H [facility] Last Admin: 09/20/20 04:33 Dose: 125 mls/hr Documented by: Levothyroxine Sodium (Levothyroxine 50 Mcg Tablet) 50 mcg PO DAILY@07 [facility] Last Admin: 09/20/20 06:15 Dose: 50 mcg Documented by: Morphine Sulfate (Morphine 4 Mg/Ml Sdv 1 Ml) 4 mg IVP Q4H PRN PRN Reason: SEVERE PAIN Ondansetron HCl (Ondansetron 2 Mg/Ml Sdv 2 Ml) 4 mg IVP Q6H PRN PRN Reason: NAUSEA AND VOMITING Tiotropium [place] (Tiotropium 18 Mcg Mdi) 1 mcg INHALATION DAILY@08 [facility] Vitals/I&O/Wt Last Vital Signs Temp 98.7 F 09/23/20 03:59 Pulse 77 09/23/20 08:00 Resp 20 H 09/23/20 10:56 BP 147/87 09/23/20 08:00 Pulse Ox 90 09/23/20 10:56 09/23/20 09/23/20 09/23/20 06:59 14:59 22:59 Intake Total 52 / 1212 Output Total 1900 / 1900 Balance 52 / 412 -1900 / -1900 Weight last 48 hrs Weight 103.419 kg Weight 102.512 kg Physical Exam Narrative: EXAM NARRATIVE: General : More alert today, No distress HEENT : Grossly unremarkable CVS: NSR CHEST : Non-labored respiration ABD : Soft NT/ND EXT : no edema Urinary Catheter Management^: Naranjo: Cath Placed During This Visit: yes Reason for Continuing Indwelling Catheter: Accurate Measurement of Urinary Output in Critically Ill Patients Urinary Catheter Date of Insertion: 09/19/20 Urinary Catheter Time of Insertion: 15:10 Data : 09/22/20 04:34 09/23/20 04:25 A&P Assessment and plan (1) Acute renal failure: Status: Acute Qualifiers: Acute renal failure type: unspecified Qualified Code(s): N17.9 - Acute kidney failure, unspecified (2) Acute hyperkalemia: Status: Acute (3) Essential hypertension: Status: Acute (4) Post-laminectomy syndrome: Status: Acute (5) Encephalopathy: Status: Acute Acute renal failure with Hyperkalemia / AG Metabolic acidosis - Resolved - Pre-renal vs AIN vs ATN - Hypotensive shortly after arrival - Nephrology consulted - K 6.3 -> D50/Insulin/Albuterol/CaGlu/kayexelate-> 5.0 on admission - Creatinine 6.9 -> 7.7 - 5.2 -> 2.9 -1.2 - F/u on UA creatinine/eosinophils, protein-creatinine ratio, total 24hr urine and creatinine, urine lytes - F/u on autoimmune work up - Anti DSDNA, ANCA, NABEEL, anti-streptolysin O, anti- bessy DNA - pending - C3 - 141, C4 - 35, hebC ab negative - SPEP, light chains ordered -Reviewed - Renal US - Within normal limits - Repeat BMP in AM - Naranjo in place - monitor output - d/c if ok with nephrology Generalized weakness / Acute encephalopathy - improved - Likely metabolic due to renal failure vs infectious - No obvious acute infectious process - Fall precautions - Bedside swallow - Will consult ST in am - PT/OT consult Suspected UTI ( hx of ESBL Ecoli in 04/2020 ) / Possible enteritis - Ruled out - CT abd/pelvis showed thickened small bowel loops - Remains afebrile, monitor for diarrhea , no abdominal pain - Pro-calcitonin - > 0.25 - Urine culture - contaminated , afebrile - Follow up on blood culture x 2 - NGTD - Empirically started on Primaxin 500mg IV q6hr on 09/20 - Now stopped - monitor off abx Hypertension - Initially held due to hypotension - Now BP high - Coreg 12.5 mg PO BID - Norvasc 5 mg PO daily added Hypomagnesemia - Mg 1.4 - Replace with mg sulfate 2 g IV x 1 Back pain s/p recent laminectomy - PT OT consultation - Pain control Hx of Congestive heart failure - ECHO - pEF - Daily weight, Strict I&O Diabetes Mellitus - Hold metformin - Sliding scale insulin - Advance to renal/diabetic diet Hypothyroidism - Levothyroxine 50 mcg po daily Hyperlipidemia - Resume statins Chronic obstructive pulmonary disease / EULALIO - Non-compliant with home o2 at night - Stable - DuoNeb PRN - 02 as needed GI ppx - Protonix 40 mg PO daily DVT ppx - Heparin 5000 units BID CODE STATUS : FULL CODE Disposition: Ok to transfer to med/surg once bed available Attestations Medical Necessity Statement*: Will require further hospitalization for pain, and placement arrangment Time Spent in Patient Care: Greater than 35 minutes (>than 50% of time spent in counselling and/or direct pt care on unit) . Coding Level of Care Code Acute Manager Front Office for Chg Fwd Diagnoses Acute renal failure N17.9 Acute renal failure type: unspecified Acute hyperkalemia E87.5 Essential hypertension I10 Post-laminectomy syndrome M96.1 Encephalopathy G93.40
[2020-09-23 17:26] LABS: Glucose Point of Care 97 mg/dL (70-110)
[2020-09-23] MEDS: magnesium sulfate premix 2 GM/50 ML PIGGYBACK IV (18:04)
[2020-09-23] MEDS: atorvastatin 40 mg Tablet 20 MG PO (19:26)
[2020-09-23] MEDS: sertraline 100 mg Tablet PO (19:26)
[2020-09-23] MEDS: HYDROmorphone 1 mg/mL INJ 1 mL 2 MG IVP (19:38)
[2020-09-23 20:23] LABS: Glucose Point of Care 104 mg/dL (70-110)
[2020-09-24] VITALS (11 sets, daily range): BP systolic 74–169; BP diastolic 53–90; PULSE 65–85; RESP 10–72; TEMP 36.5–37.2; O2SAT 90–98
[2020-09-24] MEDS: morphine 4 mg/mL SDV 1 mL IVP (05:20)
--- NOTE | 2020-09-24 06:25 | PC.NURSE ---
refused to dc vee pt has injury to hips and back. She refuses to dc vee until pain is better managed.
[2020-09-24 06:28] LABS: Basophils % 0.3 %; Eosinophils # 0.2 10^3/uL (0.0-0.8); Eosinophils % 3.8 %; Hematocrit 34.4 % (37.0-47.0); Hemoglobin 10.1 g/dL (11.5-15.3); Lymphocytes # 1.9 10^3/uL (0.8-4.8); Lymphocytes % 31.7 %; Mean Corpuscular HGB Conc 29.4 g/dL (30.0-36.0); Mean Corpuscular Hemoglobin 24.9 pg (28.0-34.0); Mean Corpuscular Volume 84.7 fL (81-99); Mean Platelet Volume 11.2 fL (7.4-10.4); Monocytes # 0.7 10^3/uL (0.2-0.9); Monocytes % 11.5 %; Neutrophils # 3.18 10^3/uL (1.8-7.7); Neutrophils % 52.4 %; Nucleated Red Blood Cells % 0 %; Platelet Count 167 10^3/cmm (130-400); Red Blood Count 4.06 10^6/uL (4.1-5.3); Red Cell Distribution Width 15.4 % (12.1-15.1); White Blood Count 6.1 10^3/uL (4.0-10.0)
[2020-09-24 06:31] LABS: Alanine Aminotransferase 6 U/L (0-33); Albumin Level 3.1 g/dL (3.5-5.2); Alkaline Phosphatase 125 IU/L (35-105); Anion Gap 11.4 (5-19); Aspartate Amino Transferase 14 U/L (0-32); Blood Urea Nitrogen 14 mg/dL (8-23); Calcium 8.7 mg/dL (8.5-10.5); Carbon Dioxide 30 mmol/L (22-29); Chloride 99 mmol/L (98-107); Globulin 2.3 g/dL (1.3-4.6); Glucose 97 mg/dL (65-115); Magnesium 1.7 mg/dL (1.7-2.3); Osmolality Calculated 284 mOsm/kg (285-295); Potassium 3.4 mmol/L (3.5-5.1); Sodium 137 mmol/L (136-145); Total Bilirubin 0.2 mg/dL (0.15-1.2); Total Protein 5.4 g/dL (6.6-8.7)
[2020-09-24] MEDS: levothyroxine 50 mcg Tablet PO (06:33)
[2020-09-24 06:45] LABS: Glucose Point of Care 144 mg/dL (70-110)
[2020-09-24] MEDS: carvedilol 12.5 mg Tablet PO (08:30)
[2020-09-24] MEDS: clopidogrel 75 mg Tablet PO (08:30)
[2020-09-24] MEDS: FUROsemide 20 mg Tablet PO (08:30)
[2020-09-24] MEDS: amlodipine 5 mg Tablet PO (08:30)
[2020-09-24] MEDS: pregabalin 150 mg Capsule PO (08:30)
--- NOTE | 2020-09-24 10:44 | DCPLANNER ---
IMM completed with pt on 09/24/2020 @ 1012. Copy of rights given to pt.
[2020-09-24 11:20] LABS: Glucose Point of Care 96 mg/dL (70-110)
[2020-09-24] MEDS: heparin 5,000 unit/mL INJ 1 mL 5000 UNIT SUBCUT (12:50)
--- NOTE | 2020-09-24 14:55 | PM.DCS ---
Discharge Providers Date of Admission: 09/19/20 15:35 Date of Discharge: September 24, 2020 Attending Provider at Admission: Shasha Mcnally Attending Provider at Discharge: Shasha Mcnally Diagnoses at Discharge Discharge Diagnosis (1) Acute renal failure: Status: Resolved Qualifiers: Acute renal failure type: unspecified Qualified Code(s): N17.9 - Acute kidney failure, unspecified (2) Acute hyperkalemia: Status: Resolved (3) Essential hypertension: Status: Acute (4) Post-laminectomy syndrome: Status: Acute (5) Encephalopathy: Status: Resolved Reason for Visit Reason for Visit: BILATERAL LEG WEAKNESS/ BACK PAIN Hospital Course Hospital Course 70 year old with past medical history of hypertension, dyslipidemia, hypothyroidism, congestive heart failure unspecified type, chronic obstructive pulmonary disease, obstructive sleep apnea ( non-compliant with nocturnal o2 ), diabetes mellitus, and recent back surgery at [facility] ( discharged on 08/24) who presented to ER today with 1 week history of progressive weakness with fall earlier today. Per daughter at bedside who provided history stated patient has been declining in this past week. She has been c/o difficulty ambulating due to bilateral LE weakness. This was associated with increasingly poor appetite and intermittent episode of altered mental status. States at times she did not recognize family members however shortly after would return to baseline. Earlier today family planned to take her out to restaurant however was requiring multiple persons to assist in ambulating and while attempted to get in to her truck she sustained a fall. No LOC. No head trauma or seizure like activity. No reported fever or chills. Noted nausea and two episodes of non-bloody emesis on 09/18. Denied any complaints of chest pain, dyspnea, abdominal pain, diarrhea or constipation. She was recently seen for post op follow up 2 weeks prior at [facility] during which time she was noted to have UTI. Had denied any dysuria, frequency or urgency. Completed course of ciprofloxacin on 09/12 Laboratory workup on arrival today showed a WBC of 11.3, hemoglobin of 11.6, hematocrit 38.3 and a platelet count of 340. sodium 134, potassium 7.6, chloride of 92, bicarb of 15, BUN of 91 and a creatinine of 6.9. LFT were WNL. ABG showed a PH of 7.25, Pco2 of 37.8, HCO3 of 16.6 and K of 6.3. Lactic acid of 2.8. TroponinT baseline of 58, 53.61 at 120 min ( delta negative 4.39), ProBNP of 6866. UA showed 1+ ketones, 2+ blood neg, trace leuk/nitrates. CPK 105. Rapid COVID-19 negative. Patient was given 1L bolus of NS, regular insulin 10 units IV x 1, D50 1 amp, calcium gluconatge 1g iv x 1, Kayexelate 15g PO x 1 and high dose albuterol nebulized. Repeat lab work up had showed potassium improved to 5.0, creatinine increased to 7.7 and lactic acid increased to 3.9. Nephrology was then consulted and patient was started on sodium bicarb 75meq/NS at 125cchr. Initial vitals on arrival were BP of 161/109 however this decreased to 74/48. Temp of 97.9, HR of 82, RR of 18-22, 96 percent o2 on RA. Imaging studies included chest x-ray which did not show any acute abnormality, head CT which showed mild atrophy and chronic ischemic disease. CT abdomen pelvis showed wall thickening of the small bowel loops in the left abdomen suspicious for nonspecific enteritis, stable diverticulosis, stable infrarenal abdominal aortic aneurysm and multiple old compression deformities of the vertebrae with appearance of prior kyphoplasty. Patient was admitted to ICU. Noted to have increasing urine output . Verified with patients family who noted prior history of lupus. Was not on any chronic immunosupressives. Renal function improved to creatinine of 5.2. Hyperkalemia resolved. Renal ultrasound was performed which did not show any acute abnormality. Both kidneys appear structurally normal. Electrolytes and renal dysfunction have resolved. Patient mental status had returned to baseline. Was noted to have adequate urinary output. Naranjo catheter was removed. Patient was cleared for discharge from nephrology standpoint. Additional workup included an Echocardiogram was performed which showed an EF of 70% without any evidence of regional wall motion abnormality. In addition she was started on empirically started on Primixin 500 mg IV q8hr due to possible UTI with hx of ESBL Ecoli. Repeat cultures however had shown no evidence of recurrent infection. antibiotics were then discontinued. Patient did not have any evidence of systemic infection. Prior to discharge she was complaining of bilateral hip pain. Pelvic x-ray was performed which did not show any evidence of acute fracture. Patient continue to work with physical therapy. Was discharged in stable condition advised to follow-up with primary care physician, outpatient Nephrology and orthopedic surgery. Physical Exam Narrative: EXAM NARRATIVE: General : More alert today, No distress HEENT : Grossly unremarkable CVS: NSR CHEST : Non-labored respiration ABD : Soft NT/ND EXT : no edema Urinary Catheter Management^: Naranjo: Cath Placed During This Visit: yes, but has since been removed by the nurse Reason for Continuing Indwelling Catheter: Decision to DC Catheter Urinary Catheter Date of Insertion: 09/19/20 Urinary Catheter Time of Insertion: 15:10 Date Urinary Catheter Removed: 09/24/20 Time Urinary Catheter Discontinued: 17:47 Discharge Data Data Completed and Pending: Completed Studies During Hospitalization Category Date Time Status CT head wo con* 7 0450 Urgent Cat Scan 09/19/20 13:[address] kidney stone 7 4176 Urgent Cat Scan 09/19/20 15:56 Completed XR chest 1V jose ble [id number] Stat Exams 09/19/20 13:11 Completed XR pelvis 1-2V* 7 2170 Routine Exams 09/23/20 13:19 Completed CV echo complete* [id number] Routine Ultrasound 09/20/20 Completed US renal BI* [id number] 0 Stat Ultrasound 09/19/20 16:35 Completed Pending at discharge Category Date Time Status NABEEL Screen w/ Ref nilson Routine Lab 09/19/20 17:15 Results Anti-Neutrophil C ytoplasmic AB Rout ine Lab 09/19/20 17:15 Received Titanic Free Light Chains Urine Stat Lab 09/21/20 00:55 Received Vitals: Last Vital Signs Temp 98 F 09/24/20 17:44 Pulse 85 09/24/20 17:44 Resp 19 H 09/24/20 17:44 BP 169/89 09/24/20 17:44 Pulse Ox 90 09/24/20 17:44 Discharge Plan Discharge Patient Disposition: Home Condition: Stable Prescriptions: New carvedilol 12.5 mg Tablet 12.5 mg PO Q12H Qty: 30 RF: 0 amlodipine 5 mg Tablet 5 mg PO DAILY Qty: 30 RF: 0 furosemide 20 mg Tablet 20 mg PO DAILY@0800 Qty: 30 RF: 0 tramadol 50 mg tablet 25 mg PO Q6H PRN (Reason: pain) Qty: 10 RF: 0 Continued levothyroxine 50 mcg tablet 50 mcg PO DAILY@07 RF: 0 pravastatin 10 mg tablet 10 mg PO DAILY@20 RF: 0 sertraline 100 mg tablet 100 mg PO DAILY@20 RF: 0 esomeprazole magnesium 40 mg capsule,delayed release(DR/EC) 40 mg PO DAILY@07 RF: 0 fluticasone furoate-vilanterol 100-25 mcg/dose blister with device 1 inh INHALATION DAILY@08 RF: 0 albuterol sulfate 90 mcg/actuation HFA aerosol inhaler 2 puff INHALATION Q4H PRN (Reason: Shortness Of Breath) RF: 0 metformin 1,000 mg tablet 1,000 mg PO BID@08,20 RF: 0 ipratropium-albuterol 0.5 mg-3 mg(2.5 mg base)/3 mL solution for nebulization 3 ml INHALATION Q6H PRN (Reason: Shortness Of Breath) RF: 0 clopidogrel 75 mg tablet 75 mg PO DAILY@08 RF: 0 tramadol 50 mg tablet 50 mg PO Q6H PRN (Reason: Pain) RF: 0 pregabalin 150 mg capsule 150 mg PO BID@08,20 RF: 0 Spiriva Respimat 2.5 mcg/actuation mist 2 puff INHALATION DAILY@08 RF: 0 Discontinued lisinopril 10 mg tablet 10 mg PO DAILY@20 RF: 0 acetaminophen [Tylenol Extra Strength] 500 mg Tablet 1,000 mg PO PRN PRN (Reason: Pain) RF: 0 furosemide 20 mg tablet 20 mg PO DAILY@08 RF: 0 carvedilol 25 mg tablet 25 mg PO Q12H RF: 0 Discharge Orders: Discharge Order (Routine); Ordered 09/24/20 Ordered By: Shasha Mcnally Discharge Diet: Cardiac Discharge Activity: Increase activity as tolerated Patient Instructions: Furosemide (By mouth), Amlodipine (By mouth), Tramadol (By mouth), Carvedilol (By mouth), Acute Kidney Injury (DC), Hyperkalemia (DC), Acute Delirium (DC) Activity Restrictions/Additional Instructions: Monitor blood pressure at home twice daily after 30 min rest. Check weight daily. Return to hospital if any new symptoms including fever, chest pain or shortness of breath. Discharge Attestations Time Spent in Discharge Care*: greater than 30 min Specific Discharge Activities: educating patient, educating and/or supporting family/caregiver, discussing with pcp/other providers, discussing with disability case manager/social workers/dc planners and documenting/other paperwork Status at Discharge: Cognitive status at discharge: cognitively intact, Behavioral status at discharge: cooperative, Functional status at discharge: independent ambulation Overall status at discharge: patient is progressing back to baseline Quality Metrics Clinical Quality Measures During this hospital stay, did patient experience: None Coding Level of Care Code Acute Global [employer]ulatory Affairs Manager for Chg Fwd Diagnoses Acute renal failure N17.9 Acute renal failure type: unspecified Acute hyperkalemia E87.5 Essential hypertension I10 Post-laminectomy syndrome M96.1 Encephalopathy G93.40
--- NOTE | 2020-09-24 17:45 | PC.NURSE ---
Patient discharged at this time in stable condition. Patient discharged in the care of her daughter. IV removed tip in tact. Naranjo catheter removed tip intact patient tolerated well.
[2020-09-27 12:12] LABS: ANCA Interp Negative (Negative)
== END 2020-09-24 17:47 | disposition home or self-care (01) | DRG 682 ==
LOC: ER 16:03 → ICU 18:49 → MEDSURG 09-24 00:53
PROVIDERS: Internal Medicine Nephrology; Physician Assistant; Admitting Provider Hospitalist; Emergency Provider Emergency Medicine; Visit Provider Hospitalist
DX: N17.0 Acute kidney failure with tubular necrosis (principal); G93.41 Metabolic encephalopathy; E87.1 Hypo-osmolality and hyponatremia; E87.2 Acidosis; I11.0 Hypertensive heart disease with heart failure; I50.9 Heart failure, unspecified; E03.9 Hypothyroidism, unspecified; J44.9 Chronic obstructive pulmonary disease, unspecified; G47.33 Obstructive sleep apnea (adult) (pediatric); E11.9 Type 2 diabetes mellitus without complications; Z87.440 Personal history of urinary (tract) infections; K57.90 Diverticulosis of intestine, part unspecified, without perforation or abscess without bleeding; I71.4 Abdominal aortic aneurysm, without rupture; M19.90 Unspecified osteoarthritis, unspecified site; M79.7 Fibromyalgia; Z85.3 Personal history of malignant neoplasm of breast; M32.9 Systemic lupus erythematosus, unspecified; E78.2 Mixed hyperlipidemia; Z87.891 Personal history of nicotine dependence; E87.5 Hyperkalemia; M96.1 Postlaminectomy syndrome, not elsewhere classified; Z79.51 Long term (current) use of inhaled steroids; Z79.84 Long term (current) use of oral hypoglycemic drugs; Z79.891 Long term (current) use of opiate analgesic; Z79.02 Long term (current) use of antithrombotics/antiplatelets; M25.552 Pain in left hip; M25.551 Pain in right hip; E66.9 Obesity, unspecified; Z68.37 Body mass index [BMI] 37.0-37.9, adult; I25.10 Atherosclerotic heart disease of native coronary artery without angina pectoris; W19.XXXA Unspecified fall, initial encounter; R53.1 Weakness; I95.9 Hypotension, unspecified
CPT/HCPCS: 12345; 36415; 36416; 36600; 51702; 70450; 71045; 72170; 74176; 76770; 80048; 80051; 80053; 81001; 82044; 82310; 82330; 82436; 82550; 82570; 82805; 82962; 83516; 83605; 83735; 83880; 83883; 83970; 84100; 84133; 84145; 84155; 84156; 84165; 84300; 84443; 84484; 85025; 85999; 86038; 86060; 86160; 86225; 86335; 86803; 87040; 87086; 92610; 93005; 93306; 94640; 96372; 97116; 97161; 97166; 97530; 97535; 99282; J0360; J0610; J0743; J1170; J1644; J1815; J2270; J3475; J7030; J7611; Q3014

== ENCOUNTER → 2021-05-11 11:53 | Outpatient (BNVA) | payer MEDICARE, OTHER, SELFPAY | PROVIDERS: Visit Provider Nurse Practitioner Family | DX: I10 Essential (primary) hypertension (principal) | CPT/HCPCS: 80048 ==

== ENCOUNTER → 2021-12-06 09:43 | Outpatient (BNVA) | payer MEDICARE, OTHER, SELFPAY | PROVIDERS: Visit Provider Nurse Practitioner Family | DX: R68.89 Other general symptoms and signs (principal) | CPT/HCPCS: 87400 ==